=== PATIENT | female | born 1960 | race Caucasian/White ===

== ENCOUNTER 2017-10-29 19:24 | Inpatient (IN) | payer OTHER ==
[~2017-10-29] VITALS: Ht 170.2 cm; Wt 148.3 kg
[~2017-10-29 19:24] MED LIST: ACT/45 PO; ALBU1AER9 INH; ALPR0.5T PO; CARI350T PO; DULO60CA44 PO; GABA400C PO; LISI20TA10 PO; OMEP20CA59 PO; OXYC7.5T78 PO; SPRIN/30 INH
[2017-10-29] MEDS ORDERED: ALBUT/IPRATROP 3MG/0.5MG NEB 3 ML VIAL INH STA ×2 (19:40→21:38)
[2017-10-29] MEDS ORDERED: METHYLPREDNISOLONE 125 MG VIAL IV STA (19:40)
--- NOTE | 2017-10-29 20:07 | EMERGENCY ROOM VISIT NOTE ---
History Report prepared by Blanche: Damien Triplett Under the Supervision of: Dr. Vel Clayton M.D. First contact with patient: 19:36 Chief Complaint: SHORTNESS OF BREATH Stated Complaint: SOB,RETAINING FLUID History of Present Illness The patient is a 57 year old female who presents to the Emergency Room with complaints of worsening SOB that began recently. Patient adds she has been weaker than usual lately. She states that has not used oxygen in the past couple of weeks since it was not helping her symptoms. She was prescribed home oxygen by her primary care physician in [place] as needed, she does not wear oxygen regularly. Patient adds she has increased "fluid" in her abdomen which has "doubled in size" over the past 2 weeks. She states she also has generalized pain. Patient adds she takes Metformin, Genvoya, glimepiride, Aspirin, Percocet, Torsemide, and Lisinopril. Patient adds she uses Advair, an inhaler daily, and daily breathing treatments. She states the breathing treatments have not helped her breathing problems. Patient states she has been taking all her medications. Patient states she is a smoker. Patient denies ever being on a ventilator, intubated, or in the ICU. Patient denies any history of liver problems. She denies taking any blood thinners. 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 She adds she lives in [place]. Patient states she got to [employer] 2 weeks ago as a passenger in a car. Source of History: patient Onset: Recent Position: chest Timing: worsening Modifying Factors (Relieving): other (None) Associated Symptoms: + weakness Note: Positive abdominal "fluid" and generalized pain. Review of Systems See HPI for pertinent positives and negatives. A total of ten systems were reviewed and were otherwise negative. Past Medical & Surgical Medical Problems: (1) Acute CHF (2) Acute respiratory failure (3) Asthma (4) Bronchitis (5) Diabetes (6) Emphysema of lung (7) Hypertension (8) Pneumonia (9) Stomach problems Family History Cancer Diabetes mellitus Heart disease Hypertension Social History Smoking Status: Current Every Day Smoker Alcohol Use: none Marital Status: Occupation Status: disabled Current/Historical Medications Scheduled Fluticasone-Salmeterol 230/21 Mcg (Advair Hfa 230/21 Mcg), 2 PUFFS INH BID Glimepiride (Amaryl), 4 MG PO BID Home O2 Therapy (Oxygen), 2-3 LITERS NA UD Lisinopril (Zestril), 40 MG PO DAILY Metformin Hcl (Glucophage), 850 MG PO TID Sitagliptin Phosphate (Januvia), 100 MG PO DAILY Umeclidinium [place] (Incruse Ellipta), 1 INHA INH DAILY Scheduled PRN Furosemide (Lasix), 40 MG PO BID PRN for Fluid Retention Gabapentin (Neurontin), 800 MG PO BID PRN for Pain Ibuprofen Tab (Motrin), 1,600 MG PO BID PRN for Pain Oxycodone/Acetaminophen 7.5MG/325MG (Oxycodone/Acetaminophen 7.5MG/325MG), 1 TAB PO Q8 PRN for Pain Allergies Coded Allergies: No Known Allergies (Unverified , 11/15/11) Physical Exam Vital Signs Date Time Temp Pulse Resp B/P (MAP) Pulse Ox O2 Delivery O2 Flow Rate FiO2 10/29/17 23:31 84 22 129/72 93 Nasal Cannula 6.0 10/29/17 23:01 84 103/65 92 Nasal Cannula 6.0 10/29/17 22:00 81 117/73 92 Nasal Cannula 6.0 10/29/17 21:21 75 23 114/80 93 Nasal Cannula 6.0 10/29/17 20:13 78 10/29/17 19:55 92 Nasal Cannula 6.0 10/29/17 19:55 82 30 110/70 93 Nasal Cannula 6.0 10/29/17 19:52 93 Nasal Cannula 6.0 10/29/17 19:52 93 Nasal Cannula 6.0 10/29/17 19:32 36.8 81 26 83 Room Air Physical Exam Physical Exam GENERAL: She is oriented to person, place, and time. HENT: Exam performed. Head: Normocephalic and atraumatic. Right Ear: External ear normal. No mastoid tenderness. Left Ear: External ear normal. No mastoid tenderness. Mouth/Throat: The oropharynx is clear and moist. No trismus in the jaw. No dental abscesses or uvula swelling. No oropharyngeal exudate or tonsillar abscesses. EYES: Conjunctivae and EOM are normal. Pupils are equal, round, and reactive to light. Right eye exhibits no discharge. Left eye exhibits no discharge. No scleral icterus. NECK: Normal range of motion. Neck supple. No JVD present. No spinous process tenderness present. No carotid bruit present. No rigidity. No tracheal deviation and normal range of motion present. No Brudzinski's sign and no Kernig 's sign noted. CV: Normal rate, regular rhythm, normal heart sounds and intact distal pulses. There is no peripheral edema. Palpable radial pulses bue. PULM/CHEST: Diffuse expiratory wheezes otherwise effort normal and breath sounds normal. No stridor. She has no rales. Chest Wall: She exhibits no tenderness. ABD: Morbidly obese otherwise the abdomen is soft. Bowel sounds are normal. She has no distension. No mass is present. There is no tenderness. There is no rebound, no guarding, no George's sign and no tenderness at McBurney's point. Rovsig negative MUSC/SKEL: 2+ bilateral pitting edema otherwise normal range of motion. There is no tenderness or deformity. LYMPH: No cervical adenopathy. NEURO: She is alert and oriented to person, place, and time. She has normal strength. No cranial nerve deficit or sensory deficit. Coordination and gait normal. GCS eye subscore is 4. GCS verbal subscore is 5. GCS motor subscore is 6. Cerebellar tests wnl. SKIN: Skin is warm and dry. She is not diaphoretic. PSYCH: She has a normal mood and affect. Behavior is normal. Judgment and thought content normal. Medical Decision & Procedures ER Provider Diagnostic Interpretation: Radiology results as stated below per my review and radiologist interpretation: CHEST ONE VIEW PORTABLE CLINICAL HISTORY: CHEST PAIN dyspnea COMPARISON STUDY: No previous studies for comparison. FINDINGS: Moderate cardiomegaly. Prominent pulmonary vasculature. Diaphragms are smooth. IMPRESSION: Congestive heart failure The above report was generated using voice recognition software. It may contain grammatical, syntax or spelling errors. Electronically signed by: Ruiz Vance M.D. 10/29/2017 8:24 PM Laboratory Results 10/29/17 21:02 Red Blood Count 5.07, Mean Corpuscular Volume 96.3, Mean Corpuscular Hemoglobin 30.4, Mean Corpuscular Hemoglobin Concent 31.6, Mean Platelet Volume 9.9, Neutrophils (%) (Auto) 64.3, Lymphocytes (%) (Auto) 25.3, Monocytes (%) (Auto) 8.4, Eosinophils (%) (Auto) 1.3, Basophils (%) (Auto) 0.4, Neutrophils # (Auto) 7.30, Lymphocytes # (Auto) 2.87, Monocytes # (Auto) 0.95, Eosinophils # (Auto) 0.15, Basophils # (Auto) 0.04 10/29/17 21:02 Test 10/29/17 21:02 10/29/17 21:48 White Blood Count 11.34 K/uL (4.8-10.8) Red Blood Count 5.07 M/uL (4.2-5.4) Hemoglobin 15.4 g/dL (12.0-16.0) Hematocrit 48.8 % (37-47) Mean Corpuscular Volume 96.3 fL (80-100) Mean Corpuscular Hemoglobin 30.4 pg (25-34) Mean Corpuscular Hemoglobin Concent 31.6 g/dl (32-36) Platelet Count 274 K/uL (130-400) Mean Platelet Volume 9.9 fL (7.4-10.4) Neutrophils (%) (Auto) 64.3 % Lymphocytes (%) (Auto) 25.3 % Monocytes (%) (Auto) 8.4 % Eosinophils (%) (Auto) 1.3 % Basophils (%) (Auto) 0.4 % Neutrophils # (Auto) 7.30 K/uL (1.4-6.5) Lymphocytes # (Auto) 2.87 K/uL (1.2-3.4) Monocytes # (Auto) 0.95 K/uL (0.11-0.59) Eosinophils # (Auto) 0.15 K/uL (0-0.5) Basophils # (Auto) 0.04 K/uL (0-0.2) RDW Standard Deviation 58.3 fL (36.4-46.3) RDW Coefficient of Variation 16.7 % (11.5-14.5) Immature Granulocyte % (Auto) 0.3 % Immature Granulocyte # (Auto) 0.03 K/uL (0.00-0.02) Anion Gap 6.0 mmol/L (3-11) Est Creatinine Clear Calc Drug Dose 56.4 ml/min Estimated GFR () 34.9 Estimated GFR (Non- 30.1 BUN/Creatinine Ratio 44.3 (10-20) Calcium Level 8.9 mg/dl (8.5-10.1) Troponin I < 0.015 ng/ml (0-0.045) Pro-B-Type Natriuretic Peptide 7696 pg/ml (0-900) Venous Blood pH 7.20 (7.36-7.41) Venous Blood Partial Pressure CO2 69 mmHg (38.0-50.0) Venous Blood Partial Pressure O2 42 mmHg Venous Blood HCO3 27 mmol/L Venous Blood Oxygen Saturation 71.1 % Venous Blood Base Excess -2.8 mEq/L Laboratory results reviewed by me Medications Administered Medications (Trade) Dose Ordered Sig/Sheryl Route Start Time Stop Time Status Last Admin Dose Admin Albuterol/ Ipratropium (Duoneb) 3 ml NOW STAT INH 10/29/17 19:40 10/29/17 19:43 DC 10/29/17 20:17 3 ML Methylprednisolone Sodium Succinate (Solu-Medrol IV) 125 mg NOW STAT IV 10/29/17 19:40 10/29/17 19:43 DC 10/29/17 21:14 125 MG Albuterol/ Ipratropium (Duoneb) 3 ml NOW STAT INH 10/29/17 21:38 10/29/17 21:40 DC 10/29/17 22:51 3 ML Calcium Gluconate 1000 mg/Sodium Chloride 60 ml @ 240 mls/hr NOW STAT IV 10/29/17 21:55 10/29/17 22:09 DC 10/29/17 22:50 240 MLS/HR Dextrose (Dextrose 50% 50ML Syringe) 50 ml NOW STAT IV 10/29/17 21:55 10/29/17 21:57 DC 10/29/17 22:42 50 ML Sodium Polystyrene Sulfonate (Kayexalate Susp) 15 gm NOW STAT PO 10/29/17 21:55 10/29/17 21:58 DC 10/29/17 22:38 15 GM Furosemide (Lasix Inj) 40 mg STK-MED ONCE .ROUTE 10/29/17 22:18 10/29/17 22:19 DC 10/29/17 22:41 40 MG Insulin Human Regular (novoLIN-R U-100 PER UNIT) 5 units STK-MED ONCE .ROUTE 10/29/17 22:20 10/29/17 22:21 DC 10/29/17 22:44 5 UNITS ECG Per My Interpretation Indication: SOB/dyspnea Rate (beats per minute): 77 Rhythm: sinus rhythm Findings: T-wave inversion (T-wave inversion in leads 3-6 and AVF), other (OK QRS and QTc are within normal limits) ED Course 1931: The patient was evaluated in room A10. A complete history and physical exam was performed. Patient was immediately placed on oxygen as well as rn heart. 1939: Solu-Medrol IV 125mg IV and Duoneb 3ml INH 2030: Patient's oxygen saturation levels are stable on 6L. Patient states she had mild improvement with breathing treatment. 2137: Duoneb 3ml INH 2138: I reassessed the patient. Upon re-examination, lungs still show diminished breath sounds, Patient states she could she could use another breathing treatment which will be administered. CXR shows CHF and fluid overload. VBG shows respiratory acidosis. CO2 level at 71. pH at 7.2. A repeat VBG will be performed to show no worsening respiratory acidosis. 2154: Kayexalate Susp 15gm PO, Furosemide 40mg/Syringe 4ml @ 4mls/min IV, Dextrose 50ml IV, Insulin Human Regular 10 units/Syringe 10ml @ 20mls/min IV, and Calcium Gluconate 1000mg/Sodium Chloride 60 ml @ 240 mls/hr IV 2213: I reevaluated the patient. Labs show acute kidney injury, BUN 82, and creatinine is 1.81. Patient denies a history of kidney problem. Pro BNP is markedly elevated. CXR shows fluid overload. Potassium is 5.9. VBG is stable. Patient will be treated calcium gluconate, 5 U insulin, 1 amp D50W, Kayexalate. Patient will be admitted to Dr[facility] De [facility]. I discussed the test results and treatment plan with the patient. She is agreeable to the treatment plan. The patient will be evaluated for further management. Medical Decision 1931: The patient was evaluated in room A10. A complete history and physical exam was performed. Patient was immediately placed on oxygen as well as rn heart. 1939: Solu-Medrol IV 125mg IV and Duoneb 3ml INH 2030: Patient's oxygen saturation levels are stable on 6L. Patient states she had mild improvement with breathing treatment. 2137: Duoneb 3ml INH 2138: I reassessed the patient. Upon re-examination, lungs still show diminished breath sounds, Patient states she could she could use another breathing treatment which will be administered. CXR shows CHF and fluid overload. VBG shows respiratory acidosis. CO2 level at 71. pH at 7.2. A repeat VBG will be performed to show no worsening respiratory acidosis. 2154: Kayexalate Susp 15gm PO, Furosemide 40mg/Syringe 4ml @ 4mls/min IV, Dextrose 50ml IV, Insulin Human Regular 10 units/Syringe 10ml @ 20mls/min IV, and Calcium Gluconate 1000mg/Sodium Chloride 60 ml @ 240 mls/hr IV 2213: I reevaluated the patient. Labs show acute kidney injury, BUN 82, and creatinine is 1.81. Patient denies a history of kidney problem. Pro BNP is markedly elevated. CXR shows fluid overload. Potassium is 5.9. VBG is stable. Patient will be treated calcium gluconate, 5 U insulin, 1 amp D50W, Kayexalate. Patient will be admitted to Dr. De Los Santos of the [facility]. I discussed the test results and treatment plan with the patient. She is agreeable to the treatment plan. The patient will be evaluated for further management. Medication Reconcilliation Current Medication List: was personally reviewed by me Blood Pressure Screening Patient's blood pressure: Normal blood pressure Blood pressure disposition: Did not require urgent referral Consults Time Called: 2202 Consulting Physician: Dr. De Los Santos - [facility] Returned Call: 2204 Discussed the patient's case. The patient will be evaluated for further treatment and disposition. Impression Primary Impression: Hypoxia Additional Impressions: Respiratory acidosis CHF exacerbation COPD exacerbation Acute kidney injury Hypokalemia Critical Care I have personally spent greater than 84 minutes of critical care time in the direct management of this patient. This includes bedside care, interpretation of diagnostic studies, and testing, discussion with consultants, patient, and family members, and other required patient management activities. This 84 minutes is in excess of all separately billable procedures. Scribe Attestation The scribe's documentation has been prepared under my direction and personally reviewed by me in its entirety. I confirm that the note above accurately reflects all work, treatment, procedures, and medical decision making performed by me. The chart was completed utilizing [employer] Speech voice recognition software. Grammatical errors, random word insertions, pronoun errors, and incomplete sentences are an occasional consequence of this system due to software limitations, ambient noise, and hardware issues. Any formal questions or concerns about the content, text, or information contained within the body of this dictation should be directly addressed to the physician for clarification. Departure Information Dispostion Being Evaluated By Hospitalist Referrals No Doctor, Assigned (PCP) Forms HOME CARE DOCUMENTATION FORM, IMPORTANT VISIT INFORMATION Patient Instructions [facility] Problem Qualifiers Additional Impressions: CHF exacerbation Heart failure type: unspecified Qualified Codes: I50.9 - Heart failure, unspecified
--- NOTE | 2017-10-29 20:26 | DIAGNOSTIC IMAGING REPORT ---
CHEST ONE VIEW PORTABLE CLINICAL HISTORY: CHEST PAIN dyspnea COMPARISON STUDY: No previous studies for comparison. FINDINGS: Moderate cardiomegaly. Prominent pulmonary vasculature. Diaphragms are smooth. IMPRESSION: Congestive heart failure The above report was generated using voice recognition software. It may contain grammatical, syntax or spelling errors. Electronically signed by: Ruiz Vance M.D. 10/29/2017 8:24 PM Dictated Date/Time: 10/29/2017 8:24 PM
[2017-10-29] MEDS ORDERED: SITA100T3 PO (20:42)
[2017-10-29] MEDS ORDERED: FLUT230A INH (20:42)
[2017-10-29] MEDS ORDERED: LISI40TA PO (20:42)
[2017-10-29] MEDS ORDERED: OXYC-593 PO (20:42)
[2017-10-29] MEDS ORDERED: UMEC1INH INH (20:42)
[2017-10-29] MEDS ORDERED: IBUP-1451 PO (20:46)
[2017-10-29] MEDS ORDERED: OXGN (20:46)
[2017-10-29] MEDS ORDERED: GABA800T2 PO (20:46)
[2017-10-29 21:21] LABS: BASO % 0.4 %; BASO ABS # 0.04 K/uL (0-0.2); EOS % 1.3 %; EOS ABS # 0.15 K/uL (0-0.5); HEMATOCRIT 48.8 % (37-47); HEMOGLOBIN 15.4 g/dL (12.0-16.0); IG# 0.03 K/uL (0.00-0.02); LYMPH % 25.3 %; LYMPH ABS # 2.87 K/uL (1.2-3.4); MEAN CELL VOLUME 96.3 fL (80-100); MEAN CORPUSCULAR HEMOGLOBIN 30.4 pg (25-34); MEAN CORPUSCULAR HGB CONC 31.6 g/dl (32-36); MEAN PLATELET VOLUME 9.9 fL (7.4-10.4); MONO % 8.4 %; MONO ABS # 0.95 K/uL (0.11-0.59); NEUT % 64.3 %; PLATELET COUNT 274 K/uL (130-400); RED CELL DISTRIBUTION WIDTH CV 16.7 % (11.5-14.5); RED CELL DISTRIBUTION WIDTH SD 58.3 fL (36.4-46.3); WHITE BLOOD COUNT 11.34 K/uL (4.8-10.8)
[2017-10-29 21:43] LABS: BLOOD UREA NITROGEN 82 mg/dl (7-18); CALCIUM 8.9 mg/dl (8.5-10.1); CARBON DIOXIDE 26 mmol/L (21-32); CREATININE 1.84 mg/dl (0.60-1.20); GLUCOSE 99 mg/dl (70-99); POTASSIUM 5.9 mmol/L (3.5-5.1); SODIUM 137 mmol/L (136-145)
[2017-10-29] MEDS ORDERED: DEXTROSE 50% 50 ML SYR IV STA (21:55)
[2017-10-29] MEDS ORDERED: FUROSEMIDE INJ 40 MG in SYRINGE 0 ML IV STA (21:55)
[2017-10-29] MEDS ORDERED: INSULIN HUMAN REGULAR PER UNIT 10 UNITS in SYRINGE 9.9 ML IV STA (21:55)
[2017-10-29] MEDS ORDERED: CALCIUM GLUCONATE 10% 1,000 MG in SODIUM CHLORIDE 0.9% 50ML 50 ML IV STA (21:55)
[2017-10-29] MEDS ORDERED: SODIUM POLYST. SULF SUSP 15G/60ML PO STA ×2 (21:55→23:05)
[2017-10-29] MEDS ORDERED: GLIM4TAB PO (22:02)
[2017-10-29] MEDS ORDERED: METF850T PO (22:02)
[2017-10-29] MEDS ORDERED: FURO20TA PO (22:02)
[2017-10-29] MEDS ORDERED: FUROSEMIDE 40 MG/4 ML VIAL ONE (22:18)
[2017-10-29] MEDS ORDERED: NovoLIN-R INSULIN PER UNIT CHARGE ONE (22:20)
[2017-10-29] MEDS ORDERED: ACETAMINOPHEN 325 MG TAB PO PRN (23:15)
[2017-10-29] MEDS ORDERED: GABAPENTIN 800 MG TAB PO PRN (23:15)
[2017-10-29] MEDS ORDERED: POLYETHYLENE (MIRALAX) 17 GM PACK PO PRN (23:15)
[2017-10-29] MEDS ORDERED: NITROGLYCERIN 0.4 MG SL PER TAB CHARGE SL PRN (23:15)
[2017-10-29] MEDS ORDERED: ONDANSETRON INJ 2 MG/ML 2 ML VIAL IV PRN (23:15)
[2017-10-29] MEDS ORDERED: ALUMINUM/MAGNESIUM/SIMETH (MAALOX MAX) 30 ML UDC PO PRN (23:15)
[2017-10-29] MEDS ORDERED: DEXTROSE 50% 50 ML SYR IV PRN (23:45)
[2017-10-29] MEDS ORDERED: GLUCAGON FOR INJ 1 MG VIAL IM PRN (23:45)
[2017-10-29] MEDS ORDERED: GLUCOSE 10 TABS/TUBE PO PRN (23:45)
[2017-10-29] MEDS ORDERED: CARBOHYDRATES FOR HYPOGLYCEMIA PO PRN (23:45)
[2017-10-29] MEDS ORDERED: GLUCOSE 40% GEL 15 GM TUBE PO PRN (23:45)
[2017-10-30] VITALS (24 sets, daily range): BP systolic 83–140; BP diastolic 43–79; PULSE 70–87; TEMP 36.3–37; O2SAT 40–99; BMI 57.0
--- NOTE | 2017-10-30 00:44 | HISTORY & PHYSICAL EXAMINATION ---
DATE OF ADMISSION: 10/29/2017 CHIEF COMPLAINT: Shortness of breath. HISTORY OF PRESENT ILLNESS: This is a 57-year-old female with past medical history significant for morbid obesity, obstructive sleep apnea, but noncompliant with CPAP, diabetes, hypertension, COPD, tobacco abuse. Presents with shortness of breath. Patient is from [place]. Her house is getting repaired and that is why she came to live with her niece in [place] since about a month. Before coming to [place], she was in ER in [place] and she was told she has CHF and discharged on Lasix tablet prn and she was not seen by any orthopedics nurse. She states since that time she is progressively getting weight gain and increasing lower extremity edema, but last 1 week it got progressive worse and she was getting short of breath even on ambulating few steps, she was getting nauseous, somewhat dizzy, feeling weak and tired. She has some cough with occasional white phlegm . All these symptoms prompted her to come to the ER. In the ER, she was saturating 83% on room air and with oxygen 6 L she was saturating at 93% to 94%. She is worried about her weight gain. She is feeling very weak and tired. She says her abdominal girth is much increased. She says she gained about 70 pounds from last August. Denies any headaches, no blurred visions, no earache, no runny nose, no sore throat. She also complained of some difficulty swallowing. 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 No abdominal pain. Normal bowel movements. No blood in the stools. She says some days she micturates a lot and some days not at all, but no blood in the urine. ALLERGIES: No known drug allergies. PAST MEDICAL HISTORY: As mentioned above. PAST SURGICAL HISTORY: Denies any surgeries. MEDICATIONS: Patient currently on Lasix 40 mg p.o. b.i.d., p.r.n., glimepiride 4 mg p.o. b.i.d., ibuprofen 600 mg p.o. b.i.d. p.r.n., lisinopril 40 mg p.o. daily, metformin 850 mg p.o. t.i.d., Januvia 100 mg p.o. daily, oxygen 2-3 liters, Advair 230/21 mcg inhalation 2 puffs inhalation b.i.d., gabapentin 800 mg p.o. b.i.d., p.r.n., [place] 7.5/325 p.o. q. 8 hours p.r.n. Ellipta 62.5 mcg inhalation daily. FAMILY HISTORY: Father and mother have diabetes. Mother has breast cancer. SOCIAL HISTORY: Smokes half pack a day . Quit for r 5 years, but restarted 2 years ago. Denies any alcohol use. REVIEW OF SYSTEMS: As per HPI. Rest of review of systems negative. PHYSICAL EXAMINATION: GENERAL: The patient is morbidly obese and mild respiratory distress. HEENT: No pallor, no icterus. Pupils equal, round, and reactive to light. NECK: No JVD, no neck masses, no carotid bruits. CARDIOVASCULAR: S1, S2 heard, regular rate and rhythm, no murmur, no gallop. RESPIRATORY SYSTEM: Clear to auscultation bilaterally, was tachypneic initially but is doing okay now. Mild bibasilar crackles. No wheezing. ABDOMEN: Soft, bowel sounds present, somewhat edematous, erythema seen in the pannus. CENTRAL NERVOUS SYSTEM: Cranial nerves II through XII grossly intact, nonfocal. EXTREMITIES: Bilateral lower extremity gross edema present. Some erythematous changes in the lower extremities. LABORATORY DATA: WBC 11.34, hemoglobin 15, hematocrit 48.8, platelets 274. Sodium 137, potassium 5.9, chloride 104, bicarbonate 26, BUN 82, creatinine 1.8, serum glucose 99. Troponin I less than 0.015. BNP 7696. Chest x-ray, congestive heart failure. EKG: Normal Sinus rhythm with rate of 77. Inverted T waves in inferior leads and anterolateral leads. No old EKG to compare. ASSESSMENT AND PLAN: This is a 57-year-old female who presents with shortness of breath. 1. Acute congestive heart failure with no prior history of diagnosis of congestive heart failure. The patient received a dose of Lasix in the ER. We will continue IV Lasix b.i.d. Follow echocardiogram, daily weights, I's and O's. Close monitoring, tele floor. Cardiology consult in a.m. for further recommendations. We will continue CPAP tonight. 2. Obstructive sleep apnea, noncompliant with CPAP. The patient says she uses oxygen 2.5 L whenever she gets short of breath at nighttime, but she is not using CPAP We will follow abg in the a.m. 3. Chronic obstructive pulmonary disease, tobacco abuse for many years. Smokes half pack a day. Continue Advair Diskus and Ellipta. We will place on DuoNebs around the clock and p.r.n. Will place on short course of prednisone and also Levaquin. 4. Possible cellulitis in lower extremities, Levaquin as above. We will monitor. 5. Hyperkalemia. Hold the lisinopril. Patient received insulin, dextrose, calcium chloride and15 grams of Kayexalate. We will give another dose of Kayexalate. Follow the labs in a.m.Nephrology consult. 6. For acute renal failure. The patient was never told that she has any renal disease. Creatinine 1.8 and BUN of 82. The patient received a dose of Lasix. possibly cardiorenal. We will follow the labs in a.m. and will consult nephrology for further recommendations. 7. History of diabetes. Hold metformin, Januvia, and glimepiride. Placed on Lantus and insulin sliding scale. Monitor the blood sugars and follow HbA1c levels. Will also hold ibuprofen which patient takes on as needed basis. 8. Chronic pain. Continue Percocet p.r.n., but we will hold the ibuprofen. 9. Dysphagia.Will Consult GI when more stable 10. Deep venous thrombosis prophylaxis. Heparin subQ. DISPOSITION: Admit to tele floor. Expect discharge home and follow up with the family doctor and cardiology. Level 1 full code. MTDD
[2017-10-30] MEDS ORDERED: LEVOFLOXACIN CONSULT ACTIVE PRN (01:15)
[2017-10-30] MEDS: LEVOFLOXACIN / D5W 750 MG in PREMIXED IN D5W 150 ML IV SCH (02:06)
[2017-10-30] MEDS: HEPARIN SOD 5000 UNIT/0.5 ML CARP SQ SCH ×2 (06:15→15:00)
[2017-10-30 06:48] LABS: BASO % 0.1 %; BASO ABS # 0.01 K/uL (0-0.2); HEMOGLOBIN 14.3 g/dL (12.0-16.0); IG# 0.06 K/uL (0.00-0.02); LYMPH ABS # 0.36 K/uL (1.2-3.4); MEAN CELL VOLUME 98.3 fL (80-100); MEAN CORPUSCULAR HEMOGLOBIN 29.9 pg (25-34); MEAN CORPUSCULAR HGB CONC 30.4 g/dl (32-36); MEAN PLATELET VOLUME 10.3 fL (7.4-10.4); MONO % 0.3 %; MONO ABS # 0.03 K/uL (0.11-0.59); NEUT % 94.9 %; NEUT ABS # 8.46 K/uL (1.4-6.5); PLATELET COUNT 258 K/uL (130-400); RED CELL DISTRIBUTION WIDTH CV 16.6 % (11.5-14.5); RED CELL DISTRIBUTION WIDTH SD 59.2 fL (36.4-46.3); WHITE BLOOD COUNT 8.92 K/uL (4.8-10.8)
[2017-10-30 06:53] LABS: INR 1.1 (0.9-1.1)
[2017-10-30] MEDS: ALBUT/IPRATROP 3MG/0.5MG NEB 3 ML VIAL INH SCH ×4 (07:07→19:40)
[2017-10-30 07:29] LABS: CALCIUM 8.4 mg/dl (8.5-10.1); CREATININE 1.69 mg/dl (0.60-1.20)
[2017-10-30] MEDS: HydrALAZINE 10 MG TAB PO PRN (08:08)
[2017-10-30] MEDS ORDERED: PATIROMER SORBITEX CALCIUM PO STA (08:09)
[2017-10-30] MEDS: NYSTATIN OINT 15 GM TUBE EXT SCH ×2 (08:09→21:04)
[2017-10-30] MEDS: INSULIN ASPART 100 UNITS/ML 3 ML PEN SC SCH ×4 (08:11→21:11)
[2017-10-30] MEDS: INSULIN GLARGINE SOLOSTAR 100 UNITS/ML 3 ML PEN SC SCH ×2 (08:12→21:12)
[2017-10-30] MEDS ORDERED: DEXTROSE 50% 50 ML SYR IV STA (08:19)
[2017-10-30] MEDS ORDERED: NovoLIN-R INSULIN PER UNIT CHARGE IV STA (08:19)
[2017-10-30 08:27] LABS: HEMOGLOBIN A1C 9.9 % (4.5-5.6)
[2017-10-30] MEDS ORDERED: FUROSEMIDE INJ 80 MG in SYRINGE 0 ML IV ONE (08:30)
[2017-10-30] MEDS ORDERED: CALCIUM GLUCONATE 10% 1,000 MG in SODIUM CHLORIDE 0.9% 50ML 50 ML IV ONE (08:45)
[2017-10-30] MEDS ORDERED: INSULIN HUMAN REGULAR PER UNIT 10 UNITS in SYRINGE 9.9 ML IV SCH (08:45)
[2017-10-30] MEDS ORDERED: FUROSEMIDE INJ 40 MG in SYRINGE 0 ML IV SCH (09:00)
[2017-10-30] MEDS ORDERED: FUROSEMIDE INJ 40 MG in SYRINGE 0 ML IV ONE (09:00)
--- NOTE | 2017-10-30 10:25 | Cardiology Consultation ---
Cardiology Consultation Date of Consultation: Oct 30, 2017 Requesting Physician: Dr. De Los Santos Attending Education Technician: Dr. Jasso (Gemma Mullins PA-C) History of Present Illness Patient is a 57 year old female who is a rather poor historian. It was difficult to obtain medical information this morning. Most history is obtained from admission H&P. Patient resides in [place]. She is currently living with her niece in [place]. Over the last 1-2 months patient reports worsening fluid retention. She admits to being evaluated in [place] ER before traveling to the area, and was told she had "congestive heart failure", started on diuretics due to significant fluid retention. She reports significant weight gain over the last 2 months. She denies recent cardiac testing such as an echocardiogram, stress test, cardiac catheterization. She denies a cardiac history of OR, CAD. She admits to having cardiac "arrhythmia" but is unable to tell me specific names of SVT vs afib. History includes morbid obesity, HEMALATHA with CPAP noncompliance, diabetes mellitus type 2, COPD with underlying tobacco abuse, hypertension, and history of lower extremity DVT no longer on anticoagulation. She was brought to [place] ER yesterday with concerns regarding worsening SOB, fluid retention, weight gain, LE edema, and weakness. Started on IV diuretics. Found to have JANNY with hyperkalemia, although baseline creatinine unknown. Lisinopril on hold. Antibiotics for questionable cellulitis. Time of consult patient resting in the chair and had difficulty staying awake during conversation. Review of systems limited. Reports ongoing issues with fluid retention 2 months. Reports ongoing shortness of breath since admission. No chest pain. (Gemma Mullins PA-C) Past Medical/Surgical History Problem List: Medical Problems: (1) Acute CHF (2) Acute respiratory failure (3) Asthma (4) Bronchitis (5) Diabetes (6) Emphysema of lung (7) Hypertension (8) Pneumonia (9) Stomach problems 10. History of DVT (Gemma Mullins PA-C) Family History Cancer Diabetes mellitus Heart disease Hypertension No history of premature CAD or sudden cardiac . (Gemma Mullins PA-C) Cancer Diabetes mellitus Heart disease Hypertension (Delonte Jasso,D.O.) Social History Smoking Status: Current Every Day Smoker Marital Status: Occupation: disabled (Gemma Mullins PA-C) Review Of Systems See HPI. Limited ROS. (Gemma Mullins PA-C) Allergies Coded Allergies: No Known Allergies (Unverified , 11/15/11) Medications Reported Home Medications Medications Dose Route/Sig Max Daily Dose Days Date Category Oxygen Gas 2-3 Liters NA UD 10/29/17 Reported Motrin (Ibuprofen) 800 Mg Tab 1,600 Mg PO BID PRN 10/29/17 Reported Neurontin (Gabapentin) 800 Mg Tab 800 Mg PO BID PRN 10/29/17 Reported Incruse Ellipta (Umeclidinium [place]) 62.5 Mcg/Inh Inh 1 Inha INH DAILY 10/29/17 Reported Zestril (Lisinopril) 40 Mg Tab 40 Mg PO DAILY 10/29/17 Reported Januvia (Sitagliptin Phosphate) 100 Mg Tab 100 Mg PO DAILY 10/29/17 Reported Advair Hfa 230/21 Mcg (Fluticasone-Salmeterol 230/21 Mcg) 1 Aer Aer 2 Puffs INH BID 10/29/17 Reported Oxycodone/Acetaminophen 7.5MG/325MG 1 Tab Tab 1 Tab PO Q8 PRN 10/29/17 Reported Glucophage (Metformin Hcl) 850 Mg Tab 850 Mg PO TID 11/08/11 Reported Amaryl (Glimepiride) 4 Mg Tab 4 Mg PO BID 11/08/11 Reported Lasix (Furosemide) 20 Mg Tab 40 Mg PO BID PRN 11/08/11 Reported (Gemma Mullins PA-C) Physical Exam Vital Signs (Last 8hrs): Last 8 Hrs Date Time Temp Pulse Resp B/P (MAP) Pulse Ox O2 Delivery O2 Flow Rate FiO2 10/30/17 07:17 36.7 86 23 96/55 (69) 93 Nasal Cannula 6.0 10/30/17 07:07 87 18 93 Nasal Cannula 6.0 10/30/17 03:48 36.8 87 22 102/64 (77) 90 Nasal Cannula 7.0 General Appearance: Drowsy, lethargic. Obese. Head: Normocephalic Atraumatic. Eyes: PERRLA, EOMI, conjunctiva and sclera clear Neck: Supple. No carotid bruits noted. No JVD. No HJD. Respiratory: + bibasilar rales Cardiovascular: Reg rate and rhythm. Distant heart sounds no audible murmur Abdomen: Normal bowel sounds, soft nontender. no abdominal bruits. Extremities: Chronic stasis changes, 1-2+ hard indurated edema. Neuro: No focal deficits. (Gemma Mullins PA-C) Data Last 24 Hours Test 10/29/17 21:02 10/29/17 21:08 10/29/17 21:48 10/30/17 00:46 White Blood Count 11.34 K/uL Red Blood Count 5.07 M/uL Hemoglobin 15.4 g/dL Hematocrit 48.8 % Mean Corpuscular Volume 96.3 fL Mean Corpuscular Hemoglobin 30.4 pg Mean Corpuscular Hemoglobin Concent 31.6 g/dl Platelet Count 274 K/uL Mean Platelet Volume 9.9 fL Neutrophils (%) (Auto) 64.3 % Lymphocytes (%) (Auto) 25.3 % Monocytes (%) (Auto) 8.4 % Eosinophils (%) (Auto) 1.3 % Basophils (%) (Auto) 0.4 % Neutrophils # (Auto) 7.30 K/uL Lymphocytes # (Auto) 2.87 K/uL Monocytes # (Auto) 0.95 K/uL Eosinophils # (Auto) 0.15 K/uL Basophils # (Auto) 0.04 K/uL RDW Standard Deviation 58.3 fL RDW Coefficient of Variation 16.7 % Immature Granulocyte % (Auto) 0.3 % Immature Granulocyte # (Auto) 0.03 K/uL Sodium Level 137 mmol/L Potassium Level 5.9 mmol/L Chloride Level 104 mmol/L Carbon Dioxide Level 26 mmol/L Anion Gap 6.0 mmol/L Blood Urea Nitrogen 82 mg/dl Creatinine 1.84 mg/dl Est Creatinine Clear Calc Drug Dose 56.4 ml/min Estimated GFR () 34.9 Estimated GFR (Non- 30.1 BUN/Creatinine Ratio 44.3 Random Glucose 99 mg/dl Calcium Level 8.9 mg/dl Troponin I < 0.015 ng/ml Pro-B-Type Natriuretic Peptide 7696 pg/ml Venous Blood pH 7.21 7.20 Venous Blood Partial Pressure CO2 71 mmHg 69 mmHg Venous Blood Partial Pressure O2 39 mmHg 42 mmHg Venous Blood HCO3 27 mmol/L 27 mmol/L Venous Blood Oxygen Saturation 66.6 % 71.1 % Venous Blood Base Excess -2.4 mEq/L -2.8 mEq/L Bedside Glucose 153 mg/dl Test 10/30/17 06:15 10/30/17 07:34 10/30/17 09:13 White Blood Count 8.92 K/uL Red Blood Count 4.78 M/uL Hemoglobin 14.3 g/dL Hematocrit 47.0 % Mean Corpuscular Volume 98.3 fL Mean Corpuscular Hemoglobin 29.9 pg Mean Corpuscular Hemoglobin Concent 30.4 g/dl Platelet Count 258 K/uL Mean Platelet Volume 10.3 fL Neutrophils (%) (Auto) 94.9 % Lymphocytes (%) (Auto) 4.0 % Monocytes (%) (Auto) 0.3 % Eosinophils (%) (Auto) 0.0 % Basophils (%) (Auto) 0.1 % Neutrophils # (Auto) 8.46 K/uL Lymphocytes # (Auto) 0.36 K/uL Monocytes # (Auto) 0.03 K/uL Eosinophils # (Auto) 0.00 K/uL Basophils # (Auto) 0.01 K/uL RDW Standard Deviation 59.2 fL RDW Coefficient of Variation 16.6 % Immature Granulocyte % (Auto) 0.7 % Immature Granulocyte # (Auto) 0.06 K/uL Prothrombin Time 11.6 SECONDS Prothromb Time International Ratio 1.1 Sodium Level 135 mmol/L Potassium Level 6.0 mmol/L Chloride Level 104 mmol/L Carbon Dioxide Level 24 mmol/L Anion Gap 7.0 mmol/L Blood Urea Nitrogen 81 mg/dl Creatinine 1.69 mg/dl Est Creatinine Clear Calc Drug Dose 60.4 ml/min Estimated GFR () 38.7 Estimated GFR (Non- 33.4 BUN/Creatinine Ratio 47.8 Random Glucose 251 mg/dl Estimated Average Glucose 237 mg/dl Hemoglobin A1c 9.9 % Calcium Level 8.4 mg/dl Magnesium Level 2.1 mg/dl Troponin I 0.018 ng/ml Triglycerides Level 67 mg/dl Cholesterol Level 133 mg/dl HDL Cholesterol 36 mg/dl LDL Cholesterol, Calculated 84 mg/dl VLDL Cholesterol, Calculated 13 mg/dl Cholesterol/HDL Ratio 3.7 Thyroid Stimulating Hormone (TSH) 1.110 uIu/ml Random Cortisol 13.67 mcg/dl Hepatitis C Antibody Screen NEG Bedside Glucose 244 mg/dl Arterial Blood pH 7.18 Arterial Blood Partial Pressure CO2 72 mmHg Arterial Blood Partial Pressure O2 54 mm/Hg Arterial Blood HCO3 26 mmol/L Arterial Blood Oxygen Saturation 84.0 % Arterial Blood Base Excess -4.1 mEq/L Arterial Blood Gas Delivery 4L Henri Test POS Imaging: Chest x-ray on admission demonstrating pulmonary vascular congestion consistent with CHF. EK29-OCT-2017 19:52:06 [facility] [place] Normal sinus rhythm Rightward axis Low voltage QRS Septal infarct , age undetermined T wave abnormality, consider inferior ischemia T wave abnormality, consider anterolateral ischemia Abnormal ECG No previous ECGs Repeat EKG 10/30/2017 Normal sinus rhythm Right axis deviation Incomplete right bundle branch block Possible Right ventricular hypertrophy T wave abnormality, consider inferior ischemia Abnormal ECG When compared with ECG of 29-OCT-2017 19:52, (unconfirmed) Criteria for Septal infarct are no longer Present T wave inversion no longer evident in Anterolateral leads QT has lengthened Telemetry reviewed: Normal sinus rhythm with PVCs. No concerning arrhythmias. (Gemma Mullins PA-C) Assessment & Plan 1. Acute respiratory failure with hypoxia secondary to probable acute diastolic vs acute right heart failure, pickwickian 2. HEMALATHA with history of non compliance with CPAP 3. COPD wiht ongoing tobacco abuse 4. Patient reports history of DVT, no longer on anticoagulation therapy. 5. Hypertension 6. JANNY wiht hyperkalemia. 7. Abnormal EKG, negative cardiac enzymes x2 PLAN: Continue IV furosemide today. Monitor I+O's No supplemental potassium. Lisinopril on hold. Monitor K CPAP/BIPAP therapy ABG's pending echo pending Venous duplex ordered given history of DVT. ? PE. Unable to complete CT scan given JANNY. VQ scan likely limited due to body habitus. DVT proph wiht SQ hep for now Case discussed with Dr. Jasso. Will follow (Gemma Mullins PA-C) CARDIOLOGY ATTENDING ADDENDUM: The patient was seen and personally examined. Agree with Gemma Mullins PA-C's findings and plans as documented above. Subjective: For the time the patient was assessed by the undersigned, respiratory status has declined to the point that she was somnolent and snoring. Her arterial blood gas revealed significant CO2 retention and hypoxia , with respiratory acidosis. And BiPAP was actively being applied. Data: Echocardiogram being performed at the bedside was reviewed preliminarily with noted right ventricular chamber enlargement and hypokinesis with relative small left ventricular chamber size in comparison. Left ventricular systolic function was grossly normal on preliminary evaluation, lateral views were completed at that time. Right chamber enlargement was present including right ventricular and right atrial enlargement consistent with perhaps some degree of chronicity of her right ventricular dysfunction consistent with suspected history of obesity hypoventilation syndrome Impression / plan: Fortunately her renal function has improved with diuresis so far. She continues to have hyperkalemia and she has received appropriate medication for this including dextrose, insulin, calcium gluconate,Veltassa. Plan for bipap, diuretic therapy, close follow up of electrolytes. Check LEVduplex to exclude DVT. Not candidate for CTA at present. (Delonte Jasso,D.O.)
[2017-10-30 11:30] LABS: CALCIUM 8.3 mg/dl (8.5-10.1); CREATININE 1.75 mg/dl (0.60-1.20); POTASSIUM 5.6 mmol/L (3.5-5.1)
[2017-10-30] MEDS ORDERED: FUROSEMIDE INJ 100 MG in SYRINGE 0 ML IV ONE (14:30)
[2017-10-30] MEDS ORDERED: METOLAZONE 5 MG TAB PO ONE (14:30)
--- NOTE | 2017-10-30 14:54 | NEPHROLOGY CONSULTATION ---
DATE OF CONSULTATION: 10/30/2017 REASON FOR CONSULT: 1. Renal failure with hyperkalemia. 2. Fluid overload, congestive heart failure. HISTORY OF PRESENT ILLNESS: The patient is a 57-year-old female with super morbid obesity, obstructive sleep apnea, and noncompliant with CPAP, longstanding diabetes, on insulin, hypertension, COPD as well as history of chronic kidney disease. At this time, the patient is too much in respiratory distress to give me a detailed history. History was mainly constructed from the chart. The patient lives in [place]. Her house is getting repaired and that is why she came to live with her niece in [place] for the last 1 month. Before coming to [place], she was in the Emergency [place] and she was told she has congestive heart failure and discharged on Lasix tablet as needed and she has not seen any fire hydrant mechanic or actuary manager. She has had progressive weight gain, increasing lower extremity edema as well as progressive shortness of breath with orthopnea. In the Emergency Department yesterday, she was saturating 83% on room air and even with 6 L of oxygen, she was only saturating at 93%. She has had 70-pound of weight gain in the last 2 months. At this time, she is on a BiPAP, but even then she appears to be short of breath. Chest x-ray shows congestive heart failure. I do not have her baseline kidney function. At the time of admission last night, potassium was 5.9, sodium was 137, creatinine was 1.84, and BUN was 84. Since then, potassium has even been as high as 6.0 and the most recent is 5.8. She has had 40 mg of IV Lasix 2 times, but her urine output has been very minimal with that. She has a Priest catheter. After the 40 mg of IV Lasix this morning, she has only urinated about 300 mL. PAST MEDICAL AND SURGICAL HISTORY: Morbid obesity, obstructive sleep apnea, noncompliant with CPAP, type 2 diabetes, hypertension, COPD, tobacco abuse, CKD stage III. PAST SURGICAL HISTORY: None. MEDICATIONS: At home was reviewed and is as per the reconciliation list. FAMILY HISTORY: Both father and mother had diabetes. Mother has breast cancer. SOCIAL HISTORY: Smoker, quit for the last 5 years, restarted 2 years ago. Denies alcohol. REVIEW OF SYSTEMS: Unable to obtain as the patient is on BiPAP and is in shortness of breath. PHYSICAL EXAMINATION: GENERAL: The patient is super morbidly obese. She is on a BiPAP with mild respiratory distress. NECK: Cannot assess jugular venous distention. VITAL SIGNS: Most recent blood pressure is 129/69, 96% on BIPAP with 4 L oxygen 40% FIO2, respiratory rate 26, pulse rate 78. CHEST: Decreased breath sounds. Unable to hear any breath sounds secondary to morbid obesity. CARDIOVASCULAR: S1 and S2, regular. ABDOMEN: Soft, nontender, very obese. EXTREMITIES: Bilateral lower extremity edema. LABORATORY TEST: Most recent labs shows sodium 136, potassium 5.8, chloride 104, BUN 83, creatinine 1.75, glucose 219, calcium 8.3, hemoglobin 14.3, WBC count 8.92, platelet count 258. Chest x-ray shows congestive heart failure. ASSESSMENT AND PLAN: A 57-year-old female who presents with symptomatic congestive heart failure. The patient has all the risk factor for severe fluid overload including possible right-sided heart failure, diastolic congestive heart failure, chronic kidney disease stage III. At this time, there is no question the patient need very aggressive diuresis. The current dose of 40 mg IV daily has not really produced significant diuresis. Chronic kidney disease versus acute renal failure. At this time, I cannot tell whether this is her baseline or not as we do not have a baseline kidney function. I would guess that she probably has some degree of chronic kidney disease given her extensive comorbid disease. Her potassium is also higher end, most likely related with decreased renal perfusion in the setting of decompensated heart failure. RECOMMENDATIONS: 1. She needs aggressive diuresis. I would write for 100 mg IV Lasix x1 now with metolazone 5 mg. Further dose of the Lasix can be titrated based on the response to this dose, but this is for all practical purpose, the maximum dose of Lasix. This should also get her potassium better. Continue BiPAP. 2. Check urine for [id number] ratio. Continue daily labs. At this time, hold metformin, Januvia, and glimepiride. Continue to manage with the insulin. Consider doing an echocardiogram. Thank you very much. [facility]
--- NOTE | 2017-10-30 16:57 | DIAGNOSTIC IMAGING REPORT ---
BILATERAL LOWER EXTREMITY VENOUS DOPPLER HISTORY: history of DVT; LE edema COMPARISON STUDY: None. FINDINGS: No DVT within the bilateral common femoral, superficial femoral, popliteal veins. Calf vessels are not well visualized due to the patient's body habitus. There is broken flow within the calf vessels. IMPRESSION: 1. No DVT within the bilateral common femoral through popliteal veins. 2. The calf vessels are not well visualized due to the patient's body habitus. Broken flow favors artifact. Nonocclusive thrombus could also have a similar appearance but are considered less likely. Electronically signed by: Yrn Kaur M.D. 10/30/2017 4:55 PM Dictated Date/Time: 10/30/2017 4:51 PM
--- NOTE | 2017-10-30 17:31 | Cardiology Progress Note ---
Cardiology Progress Note Date of Service Oct 30, 2017. Cardiology Progress Note Echocardiogram reveals severe RV chamber enlargement with diffuse RV hypokinesis. The RA is also dilated , suggestive some degree of chronicity. Severe pulmonary HTN is present based on Doppler. LEVDuplex was negative for DVT. RV dysfunction may be chronic and related to obesity hypoventilation syndrome however PE is still a concern given degree of hypoxia on bipap. Troponin negative x 2 thus far, however, EKG reveals ischemic changes. Plan: will trend troponin. Start UF heparin gtt, standard protocol, no bolus given recent SQ heparin dose Discussed with Dr Peralta by phone. Echo 10/30/17 as below-no prior echo available for comparison: Name: BRODERICK SNOWDEN Study Date: 10/30/2017 09:17 AM BP: 96/55 mmHg Patient Location: [facility] [place]^08^1 HR: 87 : 1960 (M/d/yyyy) Gender: Female Height: 67 in Age: 57 yrs Ethnicity: [place] Weight: 372 lb Ordering Physician: Elvin De Los Santos Referring Physician: Self, Referred Performed By: Virginia Flower, [facility] Reason For Study: CHF BSA: 2.6 m2. SUMMARY: The study was technically limited but adequate for the referral indication. There is moderate concentric left ventricular hypertrophy. The right ventricle is severely dilated. Severe diffuse right ventricular hypokinesis is present. The left ventricular chamber size is small by comparison. Flattened septum is consistent with RV pressure/volume overload. The LV wall motion is otherwise normal. The left ventricular ejection Fraction = >70 %. There is mild to moderate tricuspid regurgitation. Severe pulmonary hypertension is present, the calculated pulmonary artery systolic pressure is in the range of 70-80 mmHg. The right atrium is moderately dilated. Procedure Details A complete two-dimensional transthoracic echocardiogram was performed (2D, M- mode, Doppler and color flow Doppler). The study was technically difficult. Left Ventricle The left ventricular cavity is small. There is moderate concentric left ventricular hypertrophy. Left ventricular systolic function is normal. Ejection Fraction = >70 %. Flattened septum is consistent with RV pressure/volume overload. The LV wall motion is otherwise normal. Right Ventricle The right ventricle is severely dilated. Severe diffuse right ventricular hypokinesis is present. Atria The left atrial size is normal. The right atrium is moderately dilated. There is no evidence of atrial septal defect, but resolution does not allow assessment for a patent foramen ovale. Aortic Valve The aortic valve is trileaflet. There is no significant aortic regurgitation. Aortic stenosis is absent. Pulmonic Valve The pulmonary valve is not well seen, but the Doppler examination is normal without significant regurgitation or stenosis. Mitral Valve The mitral valve is normal. Significant mitral regurgitation is absent. There is no mitral valve stenosis. Tricuspid Valve The tricuspid valve is normal. There is mild to moderate tricuspid regurgitation. Severe pulmonary hypertension is present, the calculated pulmonary artery systolic pressure is in the range of 70-80 mmHg. There is no tricuspid stenosis. Great Vessels The aortic root and proximal ascending aorta are normal sized. Inferior vena cava is dilated, however collapses 50% with inspiration consistent with an intermediate right atrial pressure of 8 mmHg. Pericardium/Pleural There is no pericardial effusion.
[2017-10-30] MEDS ORDERED: HEPARIN 25,000 UNIT/500ML D5W 500 ML IV SCH (17:45)
[2017-10-30 18:10] LABS: EOS % 0.1 %; EOS ABS # 0.01 K/uL (0-0.5); HEMATOCRIT 46.4 % (37-47); HEMOGLOBIN 14.3 g/dL (12.0-16.0); IG# 0.06 K/uL (0.00-0.02); LYMPH % 8.2 %; LYMPH ABS # 0.64 K/uL (1.2-3.4); MEAN CELL VOLUME 98.1 fL (80-100); MEAN CORPUSCULAR HEMOGLOBIN 30.2 pg (25-34); MONO % 2.7 %; MONO ABS # 0.21 K/uL (0.11-0.59); NEUT % 88.2 %; NEUT ABS # 6.92 K/uL (1.4-6.5); PLATELET COUNT 241 K/uL (130-400); RED CELL DISTRIBUTION WIDTH CV 16.6 % (11.5-14.5); RED CELL DISTRIBUTION WIDTH SD 59.3 fL (36.4-46.3); WHITE BLOOD COUNT 7.84 K/uL (4.8-10.8)
[2017-10-30 18:17] LABS: MEAN CORPUSCULAR HGB CONC 30.8 g/dl (32-36)
[2017-10-30 18:23] LABS: INR 1.1 (0.9-1.1); PTT PATIENT 24.9 SECONDS (21.0-31.0)
[2017-10-30] MEDS ORDERED: HEPARIN IV BOLUS 8,000 UNIT in SYRINGE 0 ML IV ONE (18:45)
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
--- NOTE | 2017-10-30 18:53 | Procedure Note ---
Procedure Note Date of Service Oct 30, 2017. Procedure Note Critical Care Medicine Point of Care Bedside Ultrasound Procedure: Limited Bedside Lung Ultrasound Procedure Date: October 30, 2017 Indication: Acute hypercarbic hypoxic respiratory failure Attending: Marleni Gee DO Organs Examined: Lung BLUE point (upper), BLUE point (lower), Phrenic Point (axillary), PLAPS point ( posterior) A lines visualized: Present, Hemithorax: Bilaterally B lines visualized: Absent, Hemithorax: Bilaterally Lung Sliding: Present, Hemithorax: Bilaterally Tissue-like Sign: Absent, Hemithorax: Bilaterally Shred Sign: Absent, Hemithorax: Bilaterally Quad Sign: Absent, Hemithorax: Bilateral Sinusoid Sign: Absent, Hemithorax: Bilateral Type of effusions: None, Hemithorax: Bilateral Interpleural distance: Not applicable Impression: Type a profile bilaterally Images obtained are saved for permanent record
[2017-10-30] MEDS: HEPARIN 25,000 UNIT/500ML D5W 500 ML IV SCH (18:58)
[2017-10-30 19:03] LABS: CREATININE 1.52 mg/dl (0.60-1.20); GLUCOSE 224 mg/dl (70-99)
[2017-10-30 19:04] LABS: BLOOD UREA NITROGEN 80 mg/dl (7-18); CARBON DIOXIDE 27 mmol/L (21-32); POTASSIUM 5.7 mmol/L (3.5-5.1); SODIUM 135 mmol/L (136-145)
[2017-10-30 21:04] LABS: ALBUMIN 3.1 gm/dl (3.4-5.0)
[2017-10-30] MEDS: OXYCODONE/ACETAMINOPHEN 7.5-325 TAB PO PRN (21:19)
--- NOTE | 2017-10-30 21:20 | Progress Note ---
Medicine Progress Note Date & Time of Visit: Oct 30, 2017 at 21:20 . Subjective Admitted last night with SOB, CHF, and other problems. Evaluated several times throughout the day. Somnolent. Removed O2 and O2 sats fell to the 60's. K this morning 6.0. No associated EKG changes. Received calcium gluconate, D50/insulin, patiromer, IV furosemide. ABG @ 0913 on 4 L NC demonstrated pO2 54, pCO2 72, HCO3 26, pH 7.18. Placed on BiPAP. Bedside echo performed. Preliminary reading per Cardiology: grossly normal LV function, dilated RV with decreased systolic function. Repeat ABG @ 1045 on BiPAP with FIO2 60% revealed pO2 106, pCO2 78, HCO3 27, pH 7.16. BiPAP adjustments made. Repeat ABG @ 12:54 on BiPAP with FIO2 40% demonstrated pO2 71, pCO2 77, HCO3 28 , pH 7.18. Case discussed with Critical Care Medicine. Patient transferred to ICU. Re-assessed in late afternoon. Comfortable on BiPAP. Good urine output after 2nd dose of IV furosemide. . Objective Last 8 Hrs Date Time Temp Pulse Resp B/P (MAP) Pulse Ox O2 Delivery O2 Flow Rate FiO2 10/30/17 20:05 82 24 119/61 (80) 94 Nasal Cannula 5.0 10/30/17 19:48 96 Nasal Cannula 5.0 97 Mask 10/30/17 19:41 74 18 Mask 4.0 97 10/30/17 19:02 37.0 76 18 140/61 (87) 99 Oxymask 4.0 10/30/17 18:02 36.3 78 20 121/58 (79) 96 BiPAP 30 10/30/17 17:02 73 19 133/50 (77) 94 BiPAP 30 10/30/17 16:02 36.4 70 19 109/56 (73) 97 BiPAP 30 10/30/17 16:00 BiPAP 30 10/30/17 15:36 70 97 30 10/30/17 15:02 75 22 118/51 (73) 99 BiPAP 40 10/30/17 15:00 76 24 98 BiPAP 40 10/30/17 14:48 74 21 40 BiPAP/CPAP 95 10/30/17 14:48 74 95 40 Physical Exam: General- lying in bed; no acute distress ENT- BiPAP Lungs- bibasilar rales, diffuse mild wheezing Cardiovascular- distant heart sounds; RRR; no murmur or gallop appreciated; neck veins difficulty to assess; 1-2+ pretibial edema Abdomen- obese, + bowel sounds, soft, nontender Extremities- no calf tenderness Neuro- somnolent Skin- warm & dry . Laboratory Results: Last 24 Hours Test 10/29/17 21:48 10/30/17 00:46 10/30/17 06:15 10/30/17 07:34 Venous Blood pH 7.20 Venous Blood Partial Pressure CO2 69 mmHg Venous Blood Partial Pressure O2 42 mmHg Venous Blood HCO3 27 mmol/L Venous Blood Oxygen Saturation 71.1 % Venous Blood Base Excess -2.8 mEq/L Bedside Glucose 153 mg/dl 244 mg/dl White Blood Count 8.92 K/uL Red Blood Count 4.78 M/uL Hemoglobin 14.3 g/dL Hematocrit 47.0 % Mean Corpuscular Volume 98.3 fL Mean Corpuscular Hemoglobin 29.9 pg Mean Corpuscular Hemoglobin Concent 30.4 g/dl Platelet Count 258 K/uL Mean Platelet Volume 10.3 fL Neutrophils (%) (Auto) 94.9 % Lymphocytes (%) (Auto) 4.0 % Monocytes (%) (Auto) 0.3 % Eosinophils (%) (Auto) 0.0 % Basophils (%) (Auto) 0.1 % Neutrophils # (Auto) 8.46 K/uL Lymphocytes # (Auto) 0.36 K/uL Monocytes # (Auto) 0.03 K/uL Eosinophils # (Auto) 0.00 K/uL Basophils # (Auto) 0.01 K/uL RDW Standard Deviation 59.2 fL RDW Coefficient of Variation 16.6 % Immature Granulocyte % (Auto) 0.7 % Immature Granulocyte # (Auto) 0.06 K/uL Prothrombin Time 11.6 SECONDS Prothromb Time International Ratio 1.1 Sodium Level 135 mmol/L Potassium Level 6.0 mmol/L Chloride Level 104 mmol/L Carbon Dioxide Level 24 mmol/L Anion Gap 7.0 mmol/L Blood Urea Nitrogen 81 mg/dl Creatinine 1.69 mg/dl Est Creatinine Clear Calc Drug Dose 60.4 ml/min Estimated GFR () 38.7 Estimated GFR (Non- 33.4 BUN/Creatinine Ratio 47.8 Random Glucose 251 mg/dl Estimated Average Glucose 237 mg/dl Hemoglobin A1c 9.9 % Calcium Level 8.4 mg/dl Magnesium Level 2.1 mg/dl Troponin I 0.018 ng/ml Triglycerides Level 67 mg/dl Cholesterol Level 133 mg/dl HDL Cholesterol 36 mg/dl LDL Cholesterol, Calculated 84 mg/dl VLDL Cholesterol, Calculated 13 mg/dl Cholesterol/HDL Ratio 3.7 Thyroid Stimulating Hormone (TSH) 1.110 uIu/ml Random Cortisol 13.67 mcg/dl Hepatitis C Antibody Screen NEG Test 10/30/17 09:13 10/30/17 10:45 10/30/17 11:22 10/30/17 12:23 Arterial Blood pH 7.18 7.16 Arterial Blood Partial Pressure CO2 72 mmHg 78 mmHg Arterial Blood Partial Pressure O2 54 mm/Hg 106 mm/Hg Arterial Blood HCO3 26 mmol/L 27 mmol/L Arterial Blood Oxygen Saturation 84.0 % 97.0 % Arterial Blood Base Excess -4.1 mEq/L -3.5 mEq/L Arterial Blood Gas Delivery 4L BI-PAP Henri Test POS POS Sodium Level 136 mmol/L Potassium Level 5.6 mmol/L 5.8 mmol/L Chloride Level 104 mmol/L Carbon Dioxide Level 26 mmol/L Anion Gap 6.0 mmol/L Blood Urea Nitrogen 83 mg/dl Creatinine 1.75 mg/dl Est Creatinine Clear Calc Drug Dose 58.4 ml/min Estimated GFR () 37.1 Estimated GFR (Non- 32.0 BUN/Creatinine Ratio 47.3 Random Glucose 257 mg/dl Calcium Level 8.3 mg/dl Bedside Glucose 219 mg/dl Test 10/30/17 12:54 10/30/17 16:31 10/30/17 17:49 10/30/17 18:05 Arterial Blood pH 7.18 Arterial Blood Partial Pressure CO2 77 mmHg Arterial Blood Partial Pressure O2 71 mm/Hg Arterial Blood HCO3 28 mmol/L Arterial Blood Oxygen Saturation 93.0 % Arterial Blood Base Excess -2.4 mEq/L Arterial Blood Gas Delivery BI-PAP Henri Test POS Pass Bedside Glucose 212 mg/dl White Blood Count 7.84 K/uL Red Blood Count 4.73 M/uL Hemoglobin 14.3 g/dL Hematocrit 46.4 % Mean Corpuscular Volume 98.1 fL Mean Corpuscular Hemoglobin 30.2 pg Mean Corpuscular Hemoglobin Concent 30.8 g/dl Platelet Count 241 K/uL Mean Platelet Volume 10.0 fL Neutrophils (%) (Auto) 88.2 % Lymphocytes (%) (Auto) 8.2 % Monocytes (%) (Auto) 2.7 % Eosinophils (%) (Auto) 0.1 % Basophils (%) (Auto) 0.0 % Neutrophils # (Auto) 6.92 K/uL Lymphocytes # (Auto) 0.64 K/uL Monocytes # (Auto) 0.21 K/uL Eosinophils # (Auto) 0.01 K/uL Basophils # (Auto) 0.00 K/uL RDW Standard Deviation 59.3 fL RDW Coefficient of Variation 16.6 % Immature Granulocyte % (Auto) 0.8 % Immature Granulocyte # (Auto) 0.06 K/uL Prothrombin Time 11.8 SECONDS Prothromb Time International Ratio 1.1 Activated Partial Thromboplast Time 24.9 SECONDS Partial Thromboplastin Ratio 1.0 Sodium Level 135 mmol/L Potassium Level 5.7 mmol/L Carbon Dioxide Level 27 mmol/L Anion Gap 5.0 mmol/L Blood Urea Nitrogen 80 mg/dl Creatinine 1.52 mg/dl Est Creatinine Clear Calc Drug Dose 67.2 ml/min Estimated GFR () 44.0 Estimated GFR (Non- 37.9 BUN/Creatinine Ratio 52.6 Random Glucose 224 mg/dl Calcium Level 9.0 mg/dl Troponin I < 0.015 ng/ml Blood Gas Sample Site L Radial Bedside Blood Gas pH (LAB) 7.28 Bedside Blood Gas pCO2 (LAB) 62 mmHg Bedside Blood Gas pO2 (LAB) 62 mmHg Bedside Blood Gas HCO3 (LAB) 29 meq/L Bedside Blood Gas Total CO2 31 mEq/l Bedside Blood Gas Base Excess (LAB) 2.0 meq/L Bedside Blood Gas O2 Saturation 89.0 % Oxygen Delivery Device BIPAP Bedside FiO2 30 % Blood Gas IPAP 18 Test 10/30/17 19:56 10/30/17 19:57 10/30/17 20:36 Procalcitonin 0.17 ng/ml Lactic Acid Level 0.9 mmol/L Total Bilirubin 0.6 mg/dl Direct Bilirubin 0.2 mg/dl Aspartate Amino Transf (AST/SGOT) 25 U/L Alanine Aminotransferase (ALT/SGPT) 38 U/L Alkaline Phosphatase 78 U/L Ammonia 25.2 umol/L Total Protein 8.0 gm/dl Albumin 3.1 gm/dl Bedside Glucose 233 mg/dl Date/Time Source Procedure Growth Status 10/30/17 16:30 Nasal MRSA DNA Surveillance Screen - Final Specimen Negative for MRSA by DNA Probe Complete Assessment & Plan ACUTE ON CHRONIC RESPIRATORY FAILURE Acute hypoxic and hypercapnic respiratory failure. Details of baseline respiratory status not yet available, but suspect some degree of chronicity. Hypoxia could be secondary to CHF and COPD. Consider pulmonary embolism. Will not pursue CT of chest this time due to renal insufficiency. Venous duplex lower extremities negative for DVT. Hypercapnia probably secondary to combination of COPD, obesity hypoventilation syndrome. Specific problems addressed below. BiPAP initiated for ventilatory support. SLEEP APNEA Previously diagnosed. Reportedly noncompliant with CPAP. COPD Baseline PFT's not available. Continue steroids and bronchodilators. CHF Presented with weight gain and shortness of breath. Chest x-ray demonstrated cardiomegaly and pulmonary vascular congestion. BNP was elevated. Preliminary echo report: grossly normal LV systolic function; dilated RV with decreased systolic function. Suspect acute on chronic left ventricular diastolic heart failure. Suspect acute on chronic right ventricular heart failure secondary to underlying pulmonary diseases. Old records from [place] requested for baseline data. Diurese as necessary. ABNORMAL EKG EKG demonstrated nonspecific changes suggesting ischemia. Cardiology consulted. Serum troponins negative x 3. No apparent left ventricular segmental wall motion abnormalities on echo. HYPERTENSION Lisinopril stopped due to hyperkalemia. Follow and titrate therapy. RENAL INSUFFICIENCY Serum creatinine at time of admission was 1.84. Baseline creatinine unknown. Uses ibuprofen PRN-discontinued. Creatinine this morning = 1.69. Nephrology consulted. HYPERKALEMIA Serum potassium at time of admission was 5.9. Patient was taking CESAR inhibitor which was discontinued. Potassium this morning was 6.0. Received calcium gluconate, D50/insulin, patiromer, IV furosemide. Repeat potassium at 1045 was 5.6. Hyperkalemia probably multifactorial- CESAR inhibitor, respiratory acidosis, renal insufficiency. Follow. DM TYPE 2 History of diabetes mellitus type 2, usually managed with metformin, glimepiride , sitagliptin. Random glucose in ED 99. Hemoglobin A1c 9.9. Hold oral agents during hospital stay. Lantus/NovoLog per protocol. INCOMPLETE DATA Records from [place] requested. VTE PROPHYLAXIS Initially received SQ heparin. Started on IV heparin for possible thromboembolic disease. DISPOSITION Critically ill. Discharge disposition to be determined. CRITICAL CARE TIME Critically ill. At least 55 minutes time spent on direct patient care. . Current Inpatient Medications: Current Inpatient Medications Medications (Trade) Dose Ordered Sig/Sheryl Route Start Time Stop Time Status Last Admin Dose Admin Acetaminophen (Tylenol Tab) 650 mg Q4H PRN PO 10/29/17 23:15 11/28/17 23:14 Al Hydrox/Mg Hydrox/Simethicone (Maalox Max Susp) 15 ml Q4H PRN PO 10/29/17 23:15 11/28/17 23:14 Ondansetron HCl (Zofran Inj) 4 mg Q6H PRN IV 10/29/17 23:15 11/28/17 23:14 Nitroglycerin (Nitrostat Tab) 0.4 mg UD PRN SL 10/29/17 23:15 11/28/17 23:14 Polyethylene (Miralax Powder Packet) 17 gm DAILY PRN PO 10/29/17 23:15 11/28/17 23:14 Gabapentin (Neurontin Tab) 800 mg BID PRN PO 10/29/17 23:15 11/28/17 23:14 Future Hold Oxycodone/ Acetaminophen (Percocet 7.5-325MG Tab) 1 tab Q8 PRN PO 10/29/17 23:15 11/12/17 23:14 Miscellaneous Information (Order Awaiting Action) 1 ea QS N/A 10/30/17 08:00 11/29/17 07:59 Miscellaneous Information (Order Awaiting Action) 1 ea QS N/A 10/30/17 08:00 11/29/17 07:59 Albuterol/ Ipratropium (Duoneb) 3 ml QIDR INH 10/30/17 08:00 11/29/17 07:59 10/30/17 19:40 3 ML Prednisone (PredniSONE TAB) 40 mg DAILY PO 10/30/17 09:00 11/29/17 08:59 10/30/17 08:09 40 MG Levofloxacin 750 mg/Prmx 150 ml @ 100 mls/hr Q24H IV 10/30/17 02:00 11/06/17 01:59 10/30/17 02:06 100 MLS/HR Insulin Glargine (Lantus Solostar Pen) 5 units BID SC 10/30/17 09:00 11/29/17 08:59 10/30/17 21:12 5 UNITS Insulin Aspart (novoLOG ASPART) SLIDING SCALE G... ACHS SC 10/30/17 07:00 11/29/17 06:59 10/30/17 21:11 9 UNITS Hydralazine HCl (Apresoline Tab) 10 mg Q6 PRN PO 10/29/17 23:15 11/28/17 23:14 10/30/17 08:08 10 MG Glucose (Glucose 40% Gel) 15-30 GRAMS 15 GRAMS... UD PRN PO 10/29/17 23:45 11/28/17 23:44 Glucose (Glucose Chew Tab) 4-8 Tablets 4 Tabl... UD PRN PO 10/29/17 23:45 11/28/17 23:44 Dextrose (Dextrose 50% 50ML Syringe) 25-50ML 25ML FOR ... UD PRN IV 10/29/17 23:45 11/28/17 23:44 Glucagon (Glucagon Inj) 1 mg UD PRN IM 10/29/17 23:45 11/28/17 23:44 Carbohydrates (Carbohydrates For Hypoglycemia) 15-30 GRAMS 15 grams if BSG 54-69... UD PRN PO 10/29/17 23:45 11/28/17 23:44 Levofloxacin (Consult) 1 ea UD PRN N/A 10/30/17 01:15 11/29/17 01:14 Nystatin (Mycostatin Oint) 1 appln BID EXT 10/30/17 09:00 11/29/17 08:59 10/30/17 21:04 1 APPLN Heparin Sodium/ Dextrose 500 ml @ 37 mls/hr [id number] IV 10/30/17 18:45 11/29/17 18:44 10/30/17 18:58 37 MLS/HR
[2017-10-31] VITALS (23 sets, daily range): BP systolic 90–158; BP diastolic 42–84; PULSE 68–109; TEMP 36.4–37; O2SAT 89–96; BMI 55.9
[2017-10-31 01:12] LABS: PTT PATIENT 85.7 SECONDS (21.0-31.0)
[2017-10-31] MEDS: LEVOFLOXACIN / D5W 750 MG in PREMIXED IN D5W 150 ML IV SCH (02:19)
[2017-10-31 04:19] LABS: BASO % 0.1 %; BASO ABS # 0.01 K/uL (0-0.2); EOS % 0.1 %; EOS ABS # 0.01 K/uL (0-0.5); HEMATOCRIT 45.1 % (37-47); HEMOGLOBIN 13.9 g/dL (12.0-16.0); IG# 0.05 K/uL (0.00-0.02); LYMPH % 12.5 %; LYMPH ABS # 1.33 K/uL (1.2-3.4); MEAN CELL VOLUME 97.4 fL (80-100); MEAN CORPUSCULAR HGB CONC 30.8 g/dl (32-36); MEAN PLATELET VOLUME 9.8 fL (7.4-10.4); MONO % 7.4 %; MONO ABS # 0.79 K/uL (0.11-0.59); NEUT % 79.4 %; NEUT ABS # 8.44 K/uL (1.4-6.5); PLATELET COUNT 239 K/uL (130-400); RED CELL DISTRIBUTION WIDTH CV 16.7 % (11.5-14.5); RED CELL DISTRIBUTION WIDTH SD 58.3 fL (36.4-46.3); WHITE BLOOD COUNT 10.63 K/uL (4.8-10.8)
[2017-10-31 04:41] LABS: CALCIUM 8.7 mg/dl (8.5-10.1); CREATININE 1.54 mg/dl (0.60-1.20); POTASSIUM 5.3 mmol/L (3.5-5.1)
--- NOTE | 2017-10-31 07:10 | DIAGNOSTIC IMAGING REPORT ---
CHEST ONE VIEW PORTABLE CLINICAL HISTORY: resp failure dyspnea COMPARISON STUDY: 10/29/2017 FINDINGS: Improved exam. Decreased prominence of pulmonary vasculature. Mild stable cardia megaly. Chronic elevation right hemidiaphragm. IMPRESSION: Improving congestive failure. The above report was generated using voice recognition software. It may contain grammatical, syntax or spelling errors. Electronically signed by: Ruiz Vance M.D. 10/31/2017 7:08 AM Dictated Date/Time: 10/31/2017 7:08 AM
[2017-10-31] MEDS: ALBUT/IPRATROP 3MG/0.5MG NEB 3 ML VIAL INH SCH ×4 (07:44→19:15)
[2017-10-31] MEDS: NYSTATIN OINT 15 GM TUBE EXT SCH ×2 (07:47→20:53)
[2017-10-31] MEDS: INSULIN ASPART 100 UNITS/ML 3 ML PEN SC SCH ×4 (07:50→20:56)
[2017-10-31] MEDS: INSULIN GLARGINE SOLOSTAR 100 UNITS/ML 3 ML PEN SC SCH (07:51)
[2017-10-31] MEDS: HEPARIN 25,000 UNIT/500ML D5W 500 ML IV SCH (07:53)
[2017-10-31 08:35] LABS: PTT PATIENT 67.5 SECONDS (21.0-31.0)
--- NOTE | 2017-10-31 08:57 | Critical Care Progress Note ---
Critical Care Progress Note Date of Service Oct 31, 2017. ICU Day ICU Day Number: [address] Gee Subjective No overnight events improved compared to yesterday no significant complaints. Has explored gastric bypass surgery in the past and this was not encouraged by her primary care doctor. Reports she previously lost weight without medication or surgical intervention from 400 pounds to approximately 260. Understands risks and benefits of anticoagulation prefers to go on Xarelto as opposed to Coumadin. Objective General: Alert. nontoxic. Skin: Warm, dry, Head: Atraumatic Ears, nose, mouth and throat: airway patent Cardiovascular: Normal peripheral perfusion, systolic ejection murmur Respiratory: no respiratory distress, lungs clear to auscultation bilaterally Gastrointestinal: Non distended, rotund Musculoskeletal: No deformity, 1+ pitting edema bilateral lower extremities Assessment & Plan PLAN: Neuro: Somnolence upon waking: Resolved -Likely related to obesity hypoventilation syndrome and possibly contributed by acute kidney injury -Check ammonia level: Within normal limits Chronic pain -Patient on gabapentin 800 mg twice daily which may cause accumulation in the setting of acute kidney injury will hold -Judicious use of narcotics, observe for oversedation Resp: COPD secondary to tobacco abuse Likely obesity hypoventilation syndrome -Patient reports that 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 Can discontinue end-tidal CO2 monitoring CV: Cor pulmonale -Severe pulmonary hypertension with right ventricular dilatation -Reviewed cardiology notes Troponins not elevated at this time BNP elevated Fluids/Renal: Acute kidney injury: Improving - Unknown baseline, creatinine currently 1.75 Hyperkalemia: Improving -Medical management -Reviewed nephrology consultation ID: Patient is on Levaquin for presumptive COPD exacerbation -Procalcitonin reviewed, urinalysis reviewed -EKG at baseline revealed QTC of 456 will monitor QTc interval, QTC 409 today -Will put stop date for 5 days for Levaquin for presumptive COPD exacerbation GI/Nutrition: Anasarca -LFTs within normal limits Heme: History of DVT -Given clinical suspicion will place on anticoagulation Endocrine: Diabetes mellitus -ICU hyperglycemia protocol -A1c 10, diabetic education consult Vascular access: Peripheral IVs Code Status: DNR in event of cardiac arrest, patient okay with short-term mechanical ventilation not okay with tracheostomy nor long-term mechanical ventilation. Discussed with Dr. Peralta the hospitalist service, stable for downgrade to telemetry status. Data Medications: Current Inpatient Medications Medications (Trade) Dose Ordered Sig/Sheryl Route Start Time Stop Time Status Last Admin Dose Admin Acetaminophen (Tylenol Tab) 650 mg Q4H PRN PO 10/29/17 23:15 11/28/17 23:14 Al Hydrox/Mg Hydrox/Simethicone (Maalox Max Susp) 15 ml Q4H PRN PO 10/29/17 23:15 11/28/17 23:14 Ondansetron HCl (Zofran Inj) 4 mg Q6H PRN IV 10/29/17 23:15 11/28/17 23:14 Nitroglycerin (Nitrostat Tab) 0.4 mg UD PRN SL 10/29/17 23:15 11/28/17 23:14 Polyethylene (Miralax Powder Packet) 17 gm DAILY PRN PO 10/29/17 23:15 11/28/17 23:14 Gabapentin (Neurontin Tab) 800 mg BID PRN PO 10/29/17 23:15 11/28/17 23:14 Future Hold Oxycodone/ Acetaminophen (Percocet 7.5-325MG Tab) 1 tab Q8 PRN PO 10/29/17 23:15 11/12/17 23:14 10/30/17 21:19 1 TAB Miscellaneous Information (Order Awaiting Action) 1 ea QS N/A 10/30/17 08:00 11/29/17 07:59 Miscellaneous Information (Order Awaiting Action) 1 ea QS N/A 10/30/17 08:00 11/29/17 07:59 Albuterol/ Ipratropium (Duoneb) 3 ml QIDR INH 10/30/17 08:00 11/29/17 07:59 10/31/17 07:44 3 ML Prednisone (PredniSONE TAB) 40 mg DAILY PO 10/30/17 09:00 11/29/17 08:59 10/31/17 07:47 40 MG Levofloxacin 750 mg/Prmx 150 ml @ 100 mls/hr Q24H IV 10/30/17 02:00 11/06/17 01:59 10/31/17 02:19 100 MLS/HR Insulin Glargine (Lantus Solostar Pen) 5 units BID SC 10/30/17 09:00 11/29/17 08:59 10/31/17 07:51 5 UNITS Insulin Aspart (novoLOG ASPART) SLIDING SCALE G... ACHS SC 10/30/17 07:00 11/29/17 06:59 10/31/17 07:50 5 UNITS Hydralazine HCl (Apresoline Tab) 10 mg Q6 PRN PO 10/29/17 23:15 11/28/17 23:14 10/30/17 08:08 10 MG Glucose (Glucose 40% Gel) 15-30 GRAMS 15 GRAMS... UD PRN PO 10/29/17 23:45 11/28/17 23:44 Glucose (Glucose Chew Tab) 4-8 Tablets 4 Tabl... UD PRN PO 10/29/17 23:45 11/28/17 23:44 Dextrose (Dextrose 50% 50ML Syringe) 25-50ML 25ML FOR ... UD PRN IV 10/29/17 23:45 11/28/17 23:44 Glucagon (Glucagon Inj) 1 mg UD PRN IM 10/29/17 23:45 11/28/17 23:44 Carbohydrates (Carbohydrates For Hypoglycemia) 15-30 GRAMS 15 grams if BSG 54-69... UD PRN PO 10/29/17 23:45 11/28/17 23:44 Levofloxacin (Consult) 1 ea UD PRN N/A 10/30/17 01:15 11/29/17 01:14 Nystatin (Mycostatin Oint) 1 appln BID EXT 10/30/17 09:00 11/29/17 08:59 10/31/17 07:47 1 APPLN Heparin Sodium/ Dextrose 500 ml @ 33 mls/hr [id number] IV 10/30/17 18:45 11/29/17 18:44 10/31/17 07:53 33 MLS/HR Miscellaneous Information (Nursing Heparin Iv Rate Change) 1 ea ONE ONCE N/A 10/31/17 08:45 10/31/17 08:46 UNV Vital Signs: Date Time Temp Pulse Resp B/P (MAP) Pulse Ox O2 Delivery O2 Flow Rate FiO2 10/31/17 07:45 77 18 Mask 5.0 93 10/31/17 06:02 86 18 101/84 (90) 93 BiPAP 30 10/31/17 05:02 36.4 72 22 133/60 (84) 92 BiPAP 30 10/31/17 04:01 73 18 123/62 (82) 93 BiPAP 30 10/31/17 03:01 71 20 114/56 (75) 91 BiPAP 30 10/31/17 02:01 71 20 98/42 (60) 89 10/31/17 01:18 75 20 104/47 (66) 92 10/31/17 00:16 37.0 70 20 90/48 (62) 91 BiPAP 30 10/30/17 23:02 72 20 85/48 (60) 90 10/30/17 22:44 73 20 99/45 (63) 90 10/30/17 22:22 87 91 40 10/30/17 22:02 75 17 83/43 (56) 90 BiPAP 30 10/30/17 21:02 80 19 98/45 (62) 94 Nasal Cannula 5.0 10/30/17 20:05 82 24 119/61 (80) 94 Nasal Cannula 5.0 10/30/17 19:48 96 Nasal Cannula 5.0 97 Mask 10/30/17 19:41 74 18 Mask 4.0 97 10/30/17 19:02 37.0 76 18 140/61 (87) 99 Oxymask 4.0 10/30/17 18:02 36.3 78 20 121/58 (79) 96 BiPAP 30 10/30/17 17:02 73 19 133/50 (77) 94 BiPAP 30 10/30/17 16:02 36.4 70 19 109/56 (73) 97 BiPAP 30 10/30/17 16:00 BiPAP 30 10/30/17 15:36 70 97 30 10/30/17 15:02 75 22 118/51 (73) 99 BiPAP 40 10/30/17 15:00 76 24 98 BiPAP 40 10/30/17 14:48 74 21 40 BiPAP/CPAP 95 10/30/17 14:48 74 95 40 10/30/17 12:00 BiPAP 40 10/30/17 11:42 36.8 78 26 129/69 (89) 96 BiPAP 4.0 10/30/17 11:15 81 99 40 10/30/17 11:15 79 18 60 BiPAP/CPAP 99 10/30/17 09:50 82 95 60 Laboratory Results: Last 24 Hours Test 10/30/17 09:13 10/30/17 10:45 10/30/17 11:22 10/30/17 12:23 Arterial Blood pH 7.18 7.16 Arterial Blood Partial Pressure CO2 72 mmHg 78 mmHg Arterial Blood Partial Pressure O2 54 mm/Hg 106 mm/Hg Arterial Blood HCO3 26 mmol/L 27 mmol/L Arterial Blood Oxygen Saturation 84.0 % 97.0 % Arterial Blood Base Excess -4.1 mEq/L -3.5 mEq/L Arterial Blood Gas Delivery 4L BI-PAP Henri Test POS POS Sodium Level 136 mmol/L Potassium Level 5.6 mmol/L 5.8 mmol/L Chloride Level 104 mmol/L Carbon Dioxide Level 26 mmol/L Anion Gap 6.0 mmol/L Blood Urea Nitrogen 83 mg/dl Creatinine 1.75 mg/dl Est Creatinine Clear Calc Drug Dose 58.4 ml/min Estimated GFR () 37.1 Estimated GFR (Non- 32.0 BUN/Creatinine Ratio 47.3 Random Glucose 257 mg/dl Calcium Level 8.3 mg/dl Bedside Glucose 219 mg/dl Test 10/30/17 12:54 10/30/17 16:31 10/30/17 17:49 10/30/17 18:05 Arterial Blood pH 7.18 Arterial Blood Partial Pressure CO2 77 mmHg Arterial Blood Partial Pressure O2 71 mm/Hg Arterial Blood HCO3 28 mmol/L Arterial Blood Oxygen Saturation 93.0 % Arterial Blood Base Excess -2.4 mEq/L Arterial Blood Gas Delivery BI-PAP Henri Test POS Pass Bedside Glucose 212 mg/dl White Blood Count 7.84 K/uL Red Blood Count 4.73 M/uL Hemoglobin 14.3 g/dL Hematocrit 46.4 % Mean Corpuscular Volume 98.1 fL Mean Corpuscular Hemoglobin 30.2 pg Mean Corpuscular Hemoglobin Concent 30.8 g/dl Platelet Count 241 K/uL Mean Platelet Volume 10.0 fL Neutrophils (%) (Auto) 88.2 % Lymphocytes (%) (Auto) 8.2 % Monocytes (%) (Auto) 2.7 % Eosinophils (%) (Auto) 0.1 % Basophils (%) (Auto) 0.0 % Neutrophils # (Auto) 6.92 K/uL Lymphocytes # (Auto) 0.64 K/uL Monocytes # (Auto) 0.21 K/uL Eosinophils # (Auto) 0.01 K/uL Basophils # (Auto) 0.00 K/uL RDW Standard Deviation 59.3 fL RDW Coefficient of Variation 16.6 % Immature Granulocyte % (Auto) 0.8 % Immature Granulocyte # (Auto) 0.06 K/uL Prothrombin Time 11.8 SECONDS Prothromb Time International Ratio 1.1 Activated Partial Thromboplast Time 24.9 SECONDS Partial Thromboplastin Ratio 1.0 Sodium Level 135 mmol/L Potassium Level 5.7 mmol/L Carbon Dioxide Level 27 mmol/L Anion Gap 5.0 mmol/L Blood Urea Nitrogen 80 mg/dl Creatinine 1.52 mg/dl Est Creatinine Clear Calc Drug Dose 67.2 ml/min Estimated GFR () 44.0 Estimated GFR (Non- 37.9 BUN/Creatinine Ratio 52.6 Random Glucose 224 mg/dl Calcium Level 9.0 mg/dl Troponin I < 0.015 ng/ml Blood Gas Sample Site L Radial Bedside Blood Gas pH (LAB) 7.28 Bedside Blood Gas pCO2 (LAB) 62 mmHg Bedside Blood Gas pO2 (LAB) 62 mmHg Bedside Blood Gas HCO3 (LAB) 29 meq/L Bedside Blood Gas Total CO2 31 mEq/l Bedside Blood Gas Base Excess (LAB) 2.0 meq/L Bedside Blood Gas O2 Saturation 89.0 % Oxygen Delivery Device BIPAP Bedside FiO2 30 % Blood Gas IPAP 18 Test 10/30/17 19:56 10/30/17 19:57 10/30/17 20:36 10/31/17 00:43 Procalcitonin 0.17 ng/ml Lactic Acid Level 0.9 mmol/L Total Bilirubin 0.6 mg/dl Direct Bilirubin 0.2 mg/dl Aspartate Amino Transf (AST/SGOT) 25 U/L Alanine Aminotransferase (ALT/SGPT) 38 U/L Alkaline Phosphatase 78 U/L Ammonia 25.2 umol/L Total Protein 8.0 gm/dl Albumin 3.1 gm/dl Bedside Glucose 233 mg/dl Activated Partial Thromboplast Time 85.7 SECONDS Partial Thromboplastin Ratio 3.3 Test 10/31/17 03:30 10/31/17 04:03 10/31/17 07:44 10/31/17 07:51 Urine Color YELLOW Urine Appearance CLOUDY Urine pH 5.0 Urine Specific [place] 1.018 Urine Protein NEG Urine Glucose (UA) NEG Urine Ketones NEG Urine Occult Blood 3+ Urine Nitrite NEG Urine Bilirubin NEG Urine Urobilinogen NEG Urine Leukocyte Esterase TRACE Urine WBC (Auto) 1-5 /hpf Urine RBC (Auto) >30 /hpf Urine Hyaline Casts (Auto) >30 /lpf Urine Epithelial Cells (Auto) 5-10 /lpf Urine Bacteria (Auto) NEG Urine Pathogenic Casts /lpf White Blood Count 10.63 K/uL Red Blood Count 4.63 M/uL Hemoglobin 13.9 g/dL Hematocrit 45.1 % Mean Corpuscular Volume 97.4 fL Mean Corpuscular Hemoglobin 30.0 pg Mean Corpuscular Hemoglobin Concent 30.8 g/dl Platelet Count 239 K/uL Mean Platelet Volume 9.8 fL Neutrophils (%) (Auto) 79.4 % Lymphocytes (%) (Auto) 12.5 % Monocytes (%) (Auto) 7.4 % Eosinophils (%) (Auto) 0.1 % Basophils (%) (Auto) 0.1 % Neutrophils # (Auto) 8.44 K/uL Lymphocytes # (Auto) 1.33 K/uL Monocytes # (Auto) 0.79 K/uL Eosinophils # (Auto) 0.01 K/uL Basophils # (Auto) 0.01 K/uL RDW Standard Deviation 58.3 fL RDW Coefficient of Variation 16.7 % Immature Granulocyte % (Auto) 0.5 % Immature Granulocyte # (Auto) 0.05 K/uL Activated Partial Thromboplast Time 70.0 SECONDS 67.5 SECONDS Partial Thromboplastin Ratio 2.7 2.6 Sodium Level 136 mmol/L Potassium Level 5.3 mmol/L Chloride Level 102 mmol/L Carbon Dioxide Level 28 mmol/L Anion Gap 6.0 mmol/L Blood Urea Nitrogen 80 mg/dl Creatinine 1.54 mg/dl Est Creatinine Clear Calc Drug Dose 66.3 ml/min Estimated GFR () 43.3 Estimated GFR (Non- 37.3 BUN/Creatinine Ratio 52.2 Random Glucose 165 mg/dl Calcium Level 8.7 mg/dl Magnesium Level 2.0 mg/dl Troponin I 0.016 ng/ml Bedside Glucose 125 mg/dl
[2017-10-31] MEDS ORDERED: PHARMACY GLYCEMIC MGMT CONSULT PRN (08:58)
[2017-10-31] MEDS ORDERED: INSULIN HUMAN NPH SC ONE (09:00)
[2017-10-31] MEDS: OXYCODONE/ACETAMINOPHEN 7.5-325 TAB PO PRN ×2 (09:49→23:01)
--- NOTE | 2017-10-31 10:12 | Pharmacy Progress Note ---
Glycemic Control Intl Consult Date of Service Oct 31, 2017. Scope Glycemic Pharmacist consulted by Ld Neri PA-C on 10/31 for glycemic control and to write orders per [facility] inpatient glycemic control protocol Objective Weight (Kilograms): 162.000 Accuchecks BSG (last 24hrs): Test 10/30/17 10:45 10/30/17 11:22 10/30/17 16:31 10/30/17 17:49 Random Glucose 257 mg/dl (70-99) 224 mg/dl (70-99) Bedside Glucose 219 mg/dl (70-90) 212 mg/dl (70-90) Test 10/30/17 20:36 10/31/17 04:03 10/31/17 07:44 Bedside Glucose 233 mg/dl (70-90) 125 mg/dl (70-90) Random Glucose 165 mg/dl (70-99) Laboratory Data (last 24hrs) Test 10/30/17 10:45 10/30/17 12:23 10/30/17 17:49 10/31/17 04:03 Anion Gap 6.0 mmol/L 5.0 mmol/L 6.0 mmol/L BUN/Creatinine Ratio 47.3 52.6 52.2 Blood Urea Nitrogen 83 mg/dl 80 mg/dl 80 mg/dl Creatinine 1.75 mg/dl 1.52 mg/dl 1.54 mg/dl Potassium Level 5.6 mmol/L 5.8 mmol/L 5.7 mmol/L 5.3 mmol/L Sodium Level 136 mmol/L 135 mmol/L 136 mmol/L White Blood Count 7.84 K/uL 10.63 K/uL Red Blood Count 4.73 M/uL 4.63 M/uL Hemoglobin 14.3 g/dL 13.9 g/dL Hematocrit 46.4 % 45.1 % Mean Corpuscular Volume 98.1 fL 97.4 fL Mean Corpuscular Hemoglobin 30.2 pg 30.0 pg Mean Corpuscular Hemoglobin Concent 30.8 g/dl 30.8 g/dl Platelet Count 241 K/uL 239 K/uL Mean Platelet Volume 10.0 fL 9.8 fL Neutrophils (%) (Auto) 88.2 % 79.4 % Lymphocytes (%) (Auto) 8.2 % 12.5 % Monocytes (%) (Auto) 2.7 % 7.4 % Eosinophils (%) (Auto) 0.1 % 0.1 % Basophils (%) (Auto) 0.0 % 0.1 % Neutrophils # (Auto) 6.92 K/uL 8.44 K/uL Lymphocytes # (Auto) 0.64 K/uL 1.33 K/uL Monocytes # (Auto) 0.21 K/uL 0.79 K/uL Eosinophils # (Auto) 0.01 K/uL 0.01 K/uL Basophils # (Auto) 0.00 K/uL 0.01 K/uL HbA1c Test 10/30/17 06:15 Hemoglobin A1c 9.9 % (4.5-5.6) H Recent Pertinent Medications Outpatient Anti-diabetic Regimen: * Metformin 850 mg po TID * Glimepiride 4 mg po BID * Sitagliptin 100 mg po daily * A1c = 9.9 % on 10/30/17 The patient is currently receiving: * Basal insulin: Lantus 5 units every 12 hours * Correctional Insulin: Novolog Correction per scale ACHS Goal Range: Low 110 mg/dL - High 140 mg/dL Correction Factor: 30 mg/dL/unit * Prandial insulin: Per carb ratio of 1 unit per 10 grams CHO consumed * Oral Agents: On hold Risk Factors for Insulin Resistance: * Steroids: Methylprednisolone 125 mg IV x1 10/29 PM then prednisone 40 mg po qAM starting 10/30 AM * Infection: COPD exacerbation and/or cellulitis - on levofloxacin * IVF: Heparin drip (mixed in D5) @ 33 mL/hr * Diet: T2DM Assessment & Plan ASSESSMENT: * 57 yo F with acute on chronic respiratory and heart failures currently in ICU * Patient's HbA1c is not well controlled on 3 oral agents at home - would benefit from initiation of insulin as outpatient * Inpatient BSG's not well controlled (all >200 mg/dL yesterday) - likely 2nd steroid-induced hyperglycemia and lower doses of insulin administered (for patient's weight) * AM fasting BSG in range this AM despite lower dose of Lantus yesterday (10 units administered) - patient would benefit from heavier basal load during day to help with post-prandial elevations, but decreased doses overnight to help prevent overnight/AM hypoglycemia as steroid effects dissipate. Will therefore switch from Lantus to NPH * OK to tighten Novolog parameters as all BSG's elevated yesterday despite NPO status - anticipate steroid effects to be more pronounced now that diet is resumed PLAN FOR INPATIENT GLYCEMIC CONTROL: * Holding outpatient oral diabetes medications * Discontinue Lantus * Basal insulin with NPH 12 units SC x1 now * Correctional Insulin with NOVOLOG per scale ACHS or Q6hrs while NPO * Goal Range: Low 120 mg/dL - High 150 mg/dL * Correction Factor: 25 mg/dL/unit * Nutritional / Prandial insulin per carb ratio of 1 unit per 7 grams CHO consumed Discharge recommendations * Patient would likely benefit from initiation of insulin as outpatient based on elevated HbA1c despite 3 oral agents as outpatient * Will follow inpatient regimen to help predict appropriate outpatient regimen, noting a potential for significant differences depending on plan for steroids * human service specialist consulted this AM - awaiting recommendations * Please note that the plan above was derived based on current level of insulin resistance and hospital stress. These recommendations are appropriate for inpatient admission only. Plan of care upon discharge will need to be reassessed to avoid potential outpatient hypo/hyperglycemia. Thank you.
--- NOTE | 2017-10-31 10:18 | Clinical Documentation Query ---
Dr. ESTRADA JUDITH : CLINICAL DOCUMENTATION QUERY Patient is a 57 year old morbidly obese female admitted for acute on chronic LV diastolic heart failure and suspected acute on chronic RV heart failure secondary to pulmonary disease. Patient is a known smoker. On admission, placed on Duonebs ATC and PRN, prednisone, and Levaquin. "diffuse mild wheezing" noted on physical exam. As appropriate, consider capture of this clinical scenario as suggested below. Thank you. In your clinical opinion is this patient being managed for: (x ) COPD exacerbation - possible ( ) Not Agree ( ) Other explanation of clinical findings (No explanation is considered a No Response) ( ) Unable to determine ( ) Need to Discuss (Phone CDS or qliq) (No discussion is considered a No Response) The medical record reflects the following clinical findings, treatment, and risk factors. Clinical Indicators: As above Treatment: PPV, steroids, antibiotics, nebulizers, supplemental O2 Risk Factors: Smoking, morbid obesity Please clarify and document your clinical opinion in the progress notes and discharge summary. Terms such as "probable", "suspected", "likely", "questionable", "possible", or "still to be ruled out" are acceptable. IF IN AGREEMENT, YOU MUST DOCUMENT ABOVE DIAGNOSTIC STATEMENT IN DAILY PROGRESS NOTES AND DISCHARGE SUMMARY. This document is not part of the patient's record. Thank You, Chan Barrera, WILMAN [phone]
--- NOTE | 2017-10-31 12:02 | Cardiology Follow-Up ---
Subjective General Date of Service: Oct 31, 2017. Pt evaluation today including: conversation w/ patient, physical exam, chart review, lab review, review of studies, review of inpatient medication list History of Present Illness Patient sitting up and resting comfortably this afternoon. Much more awake/ alert. Reports SOB and "fluid" has improved. Ongoing dyspnea noted with minimal movement. No chest pain. No dizziness. Ongoing edema and abdominal distention reported. Good diuresis over the last 24 hours Allergies Coded Allergies: No Known Allergies (Unverified , 11/15/11) Social History Smoking Status: Current Every Day Smoker Hx Tobacco Use In Past Year?: Yes Hx Substance Use - Type And Am: No Problem List Medical Problems: (1) Acute kidney injury Status: Acute (2) CHF exacerbation Status: Acute (3) COPD exacerbation Status: Acute (4) Hypokalemia Status: Acute (5) Hypoxia Status: Acute (6) Respiratory acidosis Status: Acute Review of Systems Respiratory: + cough, + wheezing, + shortness of breath, + dyspnea on exertion , No dyspnea at rest, No hemoptysis Cardiac: + orthopnea, + edema, No chest pain, No PND, No palpitations Physical Exam Vital Signs Last Vital Signs Documentation Date Time Temp Pulse Resp B/P (MAP) Pulse Ox O2 Delivery O2 Flow Rate FiO2 10/31/17 11:20 109 18 96 Room Air 10/31/17 09:02 123/73 (90) 5.0 10/31/17 08:01 36.4 10/31/17 07:45 93 Physical Exam Constitutional: General Apperance: obese Level of Distress: NAD, acutely ill, chronically ill Psychiatric: Mental Status: active & alert Orientation: to time, to place, to person Eyes: Pupils: PERRLA Lungs: Auscultation: expiratory wheezing, wet rales/crackles Cardiovascular: Heart Auscultation: RRR, no murmurs Abdomen: Bowel Sounds: normal Inspection & Palpation: soft, non-distended Extremities: edema (2+ edema to hips with chronic stasis changes) Assessment and Plan Assessment and Plan 1. Acute respiratory failure with hypoxia secondary to probable acute diastolic vs acute right heart failure, pickwick[place] 2. Unable to r/o PE - started on IV heparin. History of DVT. May benefit from lifelong anticoagulation due to immobility 3 HEMALATHA with history of non compliance with CPAP 3. COPD wiht ongoing tobacco abuse 4. Patient reports history of DVT, no longer on anticoagulation therapy. 5. Hypertension 6. JANNY with hyperkalemia. 7. Abnormal EKG, negative cardiac enzymes x2 PLAN: Continue IV furosemide with metolazone Monitor I+O's No supplemental potassium. Lisinopril on hold. Monitor K CPAP/BIPAP therapy and supplemental O2. continue IV heparin with possible transition to coumadin rather than NOAC due to unpredictable pharmacokinetics given obesity and renal insufficiency. Case discussed with Dr. Jasso. Will follow CARDIOLOGY ATTENDING ADDENDUM: The patient was seen and personally examined. Agree with Gemma Mullins PA-C's findings and plans as documented above. Patient was more alert this morning when I spoke to her in the intensive care unit this morning. She states that she was prescribed CPAP approximately 8 years ago but she did not tolerate it. Therefore she is known to have the diagnosis of obstructive sleep apnea. She told me that she had been on Xarelto for DVT in the past for about a year and it sounds as though it was discontinued because she completed the expected course of therapy. She does not recall ever having had any past cardiac tests such as the past echocardiogram or cardiac catheterization. She recalls that the emergency room department visit in [place] at which time she was given the clinical diagnosis of congestive heart failure was about a month ago. Exam: Heart sounds are distant due to body habitus, lower extremity edema partially improved. Neuro, somnolent Impression: 57-year-old female with obesity hypoventilation syndrome having presented with volume overload, acute kidney injury, hyperkalemia, and hypercapnic respiratory failure. Echocardiographic findings consistent with cor pulmonale physiology of unknown chronicity with dilated right ventricular chamber size and severe right ventricular systolic dysfunction. The left ventricle chamber size is small by comparison with hyperdynamic LVEF. EKG reveals diffuse inferior and lateral ST segment changes consistent with ischemia again today however troponins have been negative and she has no doreen angina. Plan: Continue unfractionated heparin for possible underlying pulmonary embolism versus chronic thromboembolic pulmonary hypertension, as well as myocardial ischemia. Nephrology input is noted and appreciated given diuretic dosing and treatment of hyperkalemia. Agree with furosemide 80 mg. Continue BiPAP on an as-needed basis. -Patient reassessed at 1:50 PM out of bed in chair in the ICU, stable for transfer back to telemetry with BiPAP as needed and with sleep Laboratory Results Last 24 Hours Test 10/30/17 12:23 10/30/17 12:54 10/30/17 16:31 10/30/17 17:49 Potassium Level 5.8 mmol/L 5.7 mmol/L Arterial Blood pH 7.18 Arterial Blood Partial Pressure CO2 77 mmHg Arterial Blood Partial Pressure O2 71 mm/Hg Arterial Blood HCO3 28 mmol/L Arterial Blood Oxygen Saturation 93.0 % Arterial Blood Base Excess -2.4 mEq/L Arterial Blood Gas Delivery BI-PAP Henri Test POS Bedside Glucose 212 mg/dl White Blood Count 7.84 K/uL Red Blood Count 4.73 M/uL Hemoglobin 14.3 g/dL Hematocrit 46.4 % Mean Corpuscular Volume 98.1 fL Mean Corpuscular Hemoglobin 30.2 pg Mean Corpuscular Hemoglobin Concent 30.8 g/dl Platelet Count 241 K/uL Mean Platelet Volume 10.0 fL Neutrophils (%) (Auto) 88.2 % Lymphocytes (%) (Auto) 8.2 % Monocytes (%) (Auto) 2.7 % Eosinophils (%) (Auto) 0.1 % Basophils (%) (Auto) 0.0 % Neutrophils # (Auto) 6.92 K/uL Lymphocytes # (Auto) 0.64 K/uL Monocytes # (Auto) 0.21 K/uL Eosinophils # (Auto) 0.01 K/uL Basophils # (Auto) 0.00 K/uL RDW Standard Deviation 59.3 fL RDW Coefficient of Variation 16.6 % Immature Granulocyte % (Auto) 0.8 % Immature Granulocyte # (Auto) 0.06 K/uL Prothrombin Time 11.8 SECONDS Prothromb Time International Ratio 1.1 Activated Partial Thromboplast Time 24.9 SECONDS Partial Thromboplastin Ratio 1.0 Sodium Level 135 mmol/L Carbon Dioxide Level 27 mmol/L Anion Gap 5.0 mmol/L Blood Urea Nitrogen 80 mg/dl Creatinine 1.52 mg/dl Est Creatinine Clear Calc Drug Dose 67.2 ml/min Estimated GFR () 44.0 Estimated GFR (Non- 37.9 BUN/Creatinine Ratio 52.6 Random Glucose 224 mg/dl Calcium Level 9.0 mg/dl Troponin I < 0.015 ng/ml Test 10/30/17 18:05 10/30/17 19:56 10/30/17 19:57 10/30/17 20:36 Blood Gas Sample Site L Radial Bedside Blood Gas pH (LAB) 7.28 Bedside Blood Gas pCO2 (LAB) 62 mmHg Bedside Blood Gas pO2 (LAB) 62 mmHg Bedside Blood Gas HCO3 (LAB) 29 meq/L Bedside Blood Gas Total CO2 31 mEq/l Bedside Blood Gas Base Excess (LAB) 2.0 meq/L Bedside Blood Gas O2 Saturation 89.0 % Henri Test Pass Oxygen Delivery Device BIPAP Bedside FiO2 30 % Blood Gas IPAP 18 Procalcitonin 0.17 ng/ml Lactic Acid Level 0.9 mmol/L Total Bilirubin 0.6 mg/dl Direct Bilirubin 0.2 mg/dl Aspartate Amino Transf (AST/SGOT) 25 U/L Alanine Aminotransferase (ALT/SGPT) 38 U/L Alkaline Phosphatase 78 U/L Ammonia 25.2 umol/L Total Protein 8.0 gm/dl Albumin 3.1 gm/dl Bedside Glucose 233 mg/dl Test 10/31/17 00:43 10/31/17 03:30 10/31/17 04:03 10/31/17 07:44 Activated Partial Thromboplast Time 85.7 SECONDS 70.0 SECONDS Partial Thromboplastin Ratio 3.3 2.7 Urine Color YELLOW Urine Appearance CLOUDY Urine pH 5.0 Urine Specific [place] 1.018 Urine Protein NEG Urine Glucose (UA) NEG Urine Ketones NEG Urine Occult Blood 3+ Urine Nitrite NEG Urine Bilirubin NEG Urine Urobilinogen NEG Urine Leukocyte Esterase TRACE Urine WBC (Auto) 1-5 /hpf Urine RBC (Auto) >30 /hpf Urine Hyaline Casts (Auto) >30 /lpf Urine Epithelial Cells (Auto) 5-10 /lpf Urine Bacteria (Auto) NEG Urine Pathogenic Casts /lpf White Blood Count 10.63 K/uL Red Blood Count 4.63 M/uL Hemoglobin 13.9 g/dL Hematocrit 45.1 % Mean Corpuscular Volume 97.4 fL Mean Corpuscular Hemoglobin 30.0 pg Mean Corpuscular Hemoglobin Concent 30.8 g/dl Platelet Count 239 K/uL Mean Platelet Volume 9.8 fL Neutrophils (%) (Auto) 79.4 % Lymphocytes (%) (Auto) 12.5 % Monocytes (%) (Auto) 7.4 % Eosinophils (%) (Auto) 0.1 % Basophils (%) (Auto) 0.1 % Neutrophils # (Auto) 8.44 K/uL Lymphocytes # (Auto) 1.33 K/uL Monocytes # (Auto) 0.79 K/uL Eosinophils # (Auto) 0.01 K/uL Basophils # (Auto) 0.01 K/uL RDW Standard Deviation 58.3 fL RDW Coefficient of Variation 16.7 % Immature Granulocyte % (Auto) 0.5 % Immature Granulocyte # (Auto) 0.05 K/uL Sodium Level 136 mmol/L Potassium Level 5.3 mmol/L Chloride Level 102 mmol/L Carbon Dioxide Level 28 mmol/L Anion Gap 6.0 mmol/L Blood Urea Nitrogen 80 mg/dl Creatinine 1.54 mg/dl Est Creatinine Clear Calc Drug Dose 66.3 ml/min Estimated GFR () 43.3 Estimated GFR (Non- 37.3 BUN/Creatinine Ratio 52.2 Random Glucose 165 mg/dl Calcium Level 8.7 mg/dl Magnesium Level 2.0 mg/dl Troponin I 0.016 ng/ml Bedside Glucose 125 mg/dl Test 10/31/17 07:51 10/31/17 11:14 Activated Partial Thromboplast Time 67.5 SECONDS Partial Thromboplastin Ratio 2.6 Bedside Glucose 105 mg/dl
[2017-10-31] MEDS ORDERED: FUROSEMIDE INJ 80 MG in SYRINGE 0 ML IV ONE (14:00)
--- NOTE | 2017-10-31 15:06 | PROGRESS NOTE ---
DATE: 10/31/2017 NEPHROLOGY NOTE SUBJECTIVE: Overnight, patient did good. She had 4.25 liters of urine yesterday and with that she feels better breathing mane. She still has lot of edema. She is more interactive and actually able to talk today. OBJECTIVE: VITAL SIGNS: Blood pressure 118/62, 95% on 2-liter nasal cannula, pulse rate 71 per minute, temperature 36.5. HEENT: Mucous membrane is moist. NECK: Supple and short and obese. Cannot assess JVD. CHEST: Decreased breath sound, basal crackles. CARDIOVASCULAR: Regular rate and rhythm. Cannot really hear heart sound well. No murmur heard. ABDOMEN: Soft, nontender, morbidly obese. Abdominal wall edema. EXTREMITIES: 3+ edema with chronic venous stasis changes as well as skin edema extending all the way to the hip and abdominal wall. LABORATORY TESTS: Hemoglobin 13.9, WBC count 10.63, sodium 136, potassium 5.3, BUN 80, creatinine 1.54, BNP 7696. ASSESSMENT AND PLAN: A 57-year-old female with symptomatic congestive heart failure, both right-sided as well as left-sided together with diastolic congestive heart failure. She also has severe pulmonary hypertension related most likely with obstructive sleep apnea. Almost certainly she has some underlying chronic kidney disease related with multiple medical problems. 1. Acute versus chronic renal failure. We do not have any baseline to compare with, but most certainly she has some underlying chronic kidney disease. Creatinine today is slightly better than yesterday. BUN is high as expected given her underlying problem. She still has significant fluid overload/congestive heart failure and need to be diuresed. She has gained about 70 pounds in the last 2 months, so we have a long way to go before we get her to euvolemic status. I will continue with the metolazone 5 mg daily and Lasix 80 mg iv twice daily. She may need higher dose of Lasix than this. We should aim for urine output of at least 3.5 liters to 4 liters every day to make any headway with her weight loss. MTDD
--- NOTE | 2017-10-31 15:26 | ECHOCARDIOGRAM REPORT ---
*NOTICE TO RECEIVING [employer] This information is strictly Confidential and protected under [place] law. [place] law prohibits you from making any further disclosure of this information unless further disclosure is expressly permitted by the written consent of the person to whom it pertains or is authorized by law. A general authorization for the release of medical or other information is not sufficient for this purpose. Hospital accepts no responsibility if the information is made available to any other person, INCLUDING THE PATIENT. Interpretation Summary * Name: BRODERICK SNOWDEN Study Date: 10/30/2017 09:17 AM BP: 96/55 mmHg * Patient Location: [id number].2E\[id number]\E208\S\1 HR: 87 * : 1960 (M/d/yyyy) Gender: Female Height: 67 in * Age: 57 yrs Ethnicity: [place] Weight: 372 lb * Ordering Physician: Elvin De Los Santos * Referring Physician: Self, Referred * Performed By: Virginia Flower RCS * * Reason For Study: CHF * BSA: 2.6 m2 * -- Conclusions -- * The study was technically limited but adequate for the referral indication. * There is moderate concentric left ventricular hypertrophy. * The right ventricle is severely dilated. * Severe diffuse right ventricular hypokinesis is present. * The left ventricular chamber size is small by comparison. * Flattened septum is consistent with RV pressure/volume overload. * The LV wall motion is otherwise normal. * The left ventricular ejection Fraction = >70 %. * There is mild to moderate tricuspid regurgitation. * Severe pulmonary hypertension is present, the calculated pulmonary artery systolic pressure is in the range of 70-80 mmHg. * The right atrium is moderately dilated. Procedure Details * A complete two-dimensional transthoracic echocardiogram was performed (2D, M-mode, Doppler and color flow Doppler). * The study was technically difficult. Left Ventricle * The left ventricular cavity is small. * There is moderate concentric left ventricular hypertrophy. * Left ventricular systolic function is normal. * Ejection Fraction = >70 %. * Flattened septum is consistent with RV pressure/volume overload. * The LV wall motion is otherwise normal. Right Ventricle * The right ventricle is severely dilated. * Severe diffuse right ventricular hypokinesis is present. Atria * The left atrial size is normal. * The right atrium is moderately dilated. * There is no evidence of atrial septal defect, but resolution does not allow assessment for a patent foramen ovale. Mitral Valve * The mitral valve is normal. * There is no mitral valve stenosis. * Significant mitral regurgitation is absent. Tricuspid Valve * The tricuspid valve is normal. * There is no tricuspid stenosis. * There is mild to moderate tricuspid regurgitation. * Severe pulmonary hypertension is present, the calculated pulmonary artery systolic pressure is in the range of 70-80 mmHg. Aortic Valve * The aortic valve is trileaflet. * Aortic stenosis is absent. * There is no significant aortic regurgitation. Pulmonic Valve * The pulmonary valve is not well seen, but the Doppler examination is normal without significant regurgitation or stenosis. Great Vessels * The aortic root and proximal ascending aorta are normal sized. Pericardium/Pleural * There is no pericardial effusion. Great Vessels * Inferior vena cava is dilated, however collapses 50% with inspiration consistent with an intermediate right atrial pressure of 8 mmHg. MMode 2D Measurements and Calculations IVSd 1.6 cm IVSs 1.9 cm LVIDd 4.1 cm LVIDs 2.8 cm LVPWd 1.5 cm LVPWs 1.8 cm IVS/LVPW 1.1 FS 32.5 % EDV(Teich) 74.4 ml ESV(Teich) 28.8 ml EF(Teich) 61.2 % EDV(cubed) 69.1 ml ESV(cubed) 21.3 ml EF(cubed) 69.2 % % IVS thick 15.1 % % LVPW thick 20.3 % LV mass(C)d 253.9 grams LV mass(C)dI 96.5 grams/m\S\2 LV mass(C)s 202.6 grams LV mass(C)sI 77.0 grams/m\S\2 SV(Teich) 45.5 ml SI(Teich) 17.3 ml/m\S\2 SV(cubed) 47.8 ml SI(cubed) 18.2 ml/m\S\2 Ao root diam 3.1 cm Ao root area 7.3 cm\S\2 LA dimension 4.1 cm LA/Ao 1.3 LVOT diam 2.0 cm LVOT area 3.1 cm\S\2 Doppler Measurements and Calculations LV V1 max PG 6.4 mmHg LV V1 max 125.7 cm/sec TR max neri 426.4 cm/sec
[2017-10-31] MEDS: METOLAZONE 5 MG TAB PO SCH (16:26)
--- NOTE | 2017-10-31 20:27 | Progress Note ---
Medicine Progress Note Date & Time of Visit: Oct 31, 2017 at 20:27.
--- NOTE | 2017-10-31 23:16 | Progress Note ---
Medicine Progress Note Date & Time of Visit: Oct 31, 2017 at 10:00 . Subjective CC: Follow-up visit for respiratory failure and other problems. HPI: Much better today. More alert. Wearing NC this morning. Ate breakfast. No fever. Nonproductive cough. No dyspnea at rest. ROS: General- no fever, no chills Resp- as noted above in HPI Cardiac- no chest pain, no edema GI- no nausea, no vomiting, no diarrhea - Priest cath . Objective Last 8 Hrs Date Time Temp Pulse Resp B/P (MAP) Pulse Ox O2 Delivery O2 Flow Rate FiO2 10/31/17 09:02 71 13 123/73 (90) 93 Nasal Cannula 5.0 10/31/17 08:01 36.4 76 20 158/84 (108) 96 Nasal Cannula 5.0 10/31/17 08:00 Nasal Cannula 5.0 10/31/17 07:45 77 18 Mask 5.0 93 10/31/17 07:03 72 17 130/71 (90) 94 Nasal Cannula 5.0 10/31/17 06:02 86 18 101/84 (90) 93 BiPAP 30 10/31/17 05:02 36.4 72 22 133/60 (84) 92 BiPAP 30 10/31/17 04:01 73 18 123/62 (82) 93 BiPAP 30 10/31/17 03:01 71 20 114/56 (75) 91 BiPAP 30 Physical Exam: General- lying in bed; no acute distress Lungs- bibasilar rales, diffuse mild wheezing Cardiovascular- distant heart sounds; RRR; no murmur or gallop appreciated; neck veins difficulty to assess; 1-2+ pretibial edema Abdomen- obese, + bowel sounds, soft, nontender Extremities- no calf tenderness Neuro- alert, oriented Skin- warm & dry . Laboratory Results: Last 24 Hours Test 10/30/17 10:45 10/30/17 11:22 10/30/17 12:23 10/30/17 12:54 Arterial Blood pH 7.16 7.18 Arterial Blood Partial Pressure CO2 78 mmHg 77 mmHg Arterial Blood Partial Pressure O2 106 mm/Hg 71 mm/Hg Arterial Blood HCO3 27 mmol/L 28 mmol/L Arterial Blood Oxygen Saturation 97.0 % 93.0 % Arterial Blood Base Excess -3.5 mEq/L -2.4 mEq/L Arterial Blood Gas Delivery BI-PAP BI-PAP Henri Test POS POS Sodium Level 136 mmol/L Potassium Level 5.6 mmol/L 5.8 mmol/L Chloride Level 104 mmol/L Carbon Dioxide Level 26 mmol/L Anion Gap 6.0 mmol/L Blood Urea Nitrogen 83 mg/dl Creatinine 1.75 mg/dl Est Creatinine Clear Calc Drug Dose 58.4 ml/min Estimated GFR () 37.1 Estimated GFR (Non- 32.0 BUN/Creatinine Ratio 47.3 Random Glucose 257 mg/dl Calcium Level 8.3 mg/dl Bedside Glucose 219 mg/dl Test 10/30/17 16:31 10/30/17 17:49 10/30/17 18:05 10/30/17 19:56 Bedside Glucose 212 mg/dl White Blood Count 7.84 K/uL Red Blood Count 4.73 M/uL Hemoglobin 14.3 g/dL Hematocrit 46.4 % Mean Corpuscular Volume 98.1 fL Mean Corpuscular Hemoglobin 30.2 pg Mean Corpuscular Hemoglobin Concent 30.8 g/dl Platelet Count 241 K/uL Mean Platelet Volume 10.0 fL Neutrophils (%) (Auto) 88.2 % Lymphocytes (%) (Auto) 8.2 % Monocytes (%) (Auto) 2.7 % Eosinophils (%) (Auto) 0.1 % Basophils (%) (Auto) 0.0 % Neutrophils # (Auto) 6.92 K/uL Lymphocytes # (Auto) 0.64 K/uL Monocytes # (Auto) 0.21 K/uL Eosinophils # (Auto) 0.01 K/uL Basophils # (Auto) 0.00 K/uL RDW Standard Deviation 59.3 fL RDW Coefficient of Variation 16.6 % Immature Granulocyte % (Auto) 0.8 % Immature Granulocyte # (Auto) 0.06 K/uL Prothrombin Time 11.8 SECONDS Prothromb Time International Ratio 1.1 Activated Partial Thromboplast Time 24.9 SECONDS Partial Thromboplastin Ratio 1.0 Sodium Level 135 mmol/L Potassium Level 5.7 mmol/L Carbon Dioxide Level 27 mmol/L Anion Gap 5.0 mmol/L Blood Urea Nitrogen 80 mg/dl Creatinine 1.52 mg/dl Est Creatinine Clear Calc Drug Dose 67.2 ml/min Estimated GFR () 44.0 Estimated GFR (Non- 37.9 BUN/Creatinine Ratio 52.6 Random Glucose 224 mg/dl Calcium Level 9.0 mg/dl Troponin I < 0.015 ng/ml Blood Gas Sample Site L Radial Bedside Blood Gas pH (LAB) 7.28 Bedside Blood Gas pCO2 (LAB) 62 mmHg Bedside Blood Gas pO2 (LAB) 62 mmHg Bedside Blood Gas HCO3 (LAB) 29 meq/L Bedside Blood Gas Total CO2 31 mEq/l Bedside Blood Gas Base Excess (LAB) 2.0 meq/L Bedside Blood Gas O2 Saturation 89.0 % Henri Test Pass Oxygen Delivery Device BIPAP Bedside FiO2 30 % Blood Gas IPAP 18 Procalcitonin 0.17 ng/ml Test 10/30/17 19:57 10/30/17 20:36 10/31/17 00:43 10/31/17 03:30 Lactic Acid Level 0.9 mmol/L Total Bilirubin 0.6 mg/dl Direct Bilirubin 0.2 mg/dl Aspartate Amino Transf (AST/SGOT) 25 U/L Alanine Aminotransferase (ALT/SGPT) 38 U/L Alkaline Phosphatase 78 U/L Ammonia 25.2 umol/L Total Protein 8.0 gm/dl Albumin 3.1 gm/dl Bedside Glucose 233 mg/dl Activated Partial Thromboplast Time 85.7 SECONDS Partial Thromboplastin Ratio 3.3 Urine Color YELLOW Urine Appearance CLOUDY Urine pH 5.0 Urine Specific [place] 1.018 Urine Protein NEG Urine Glucose (UA) NEG Urine Ketones NEG Urine Occult Blood 3+ Urine Nitrite NEG Urine Bilirubin NEG Urine Urobilinogen NEG Urine Leukocyte Esterase TRACE Urine WBC (Auto) 1-5 /hpf Urine RBC (Auto) >30 /hpf Urine Hyaline Casts (Auto) >30 /lpf Urine Epithelial Cells (Auto) 5-10 /lpf Urine Bacteria (Auto) NEG Urine Pathogenic Casts /lpf Test 10/31/17 04:03 10/31/17 07:44 10/31/17 07:51 White Blood Count 10.63 K/uL Red Blood Count 4.63 M/uL Hemoglobin 13.9 g/dL Hematocrit 45.1 % Mean Corpuscular Volume 97.4 fL Mean Corpuscular Hemoglobin 30.0 pg Mean Corpuscular Hemoglobin Concent 30.8 g/dl Platelet Count 239 K/uL Mean Platelet Volume 9.8 fL Neutrophils (%) (Auto) 79.4 % Lymphocytes (%) (Auto) 12.5 % Monocytes (%) (Auto) 7.4 % Eosinophils (%) (Auto) 0.1 % Basophils (%) (Auto) 0.1 % Neutrophils # (Auto) 8.44 K/uL Lymphocytes # (Auto) 1.33 K/uL Monocytes # (Auto) 0.79 K/uL Eosinophils # (Auto) 0.01 K/uL Basophils # (Auto) 0.01 K/uL RDW Standard Deviation 58.3 fL RDW Coefficient of Variation 16.7 % Immature Granulocyte % (Auto) 0.5 % Immature Granulocyte # (Auto) 0.05 K/uL Activated Partial Thromboplast Time 70.0 SECONDS 67.5 SECONDS Partial Thromboplastin Ratio 2.7 2.6 Sodium Level 136 mmol/L Potassium Level 5.3 mmol/L Chloride Level 102 mmol/L Carbon Dioxide Level 28 mmol/L Anion Gap 6.0 mmol/L Blood Urea Nitrogen 80 mg/dl Creatinine 1.54 mg/dl Est Creatinine Clear Calc Drug Dose 66.3 ml/min Estimated GFR () 43.3 Estimated GFR (Non- 37.3 BUN/Creatinine Ratio 52.2 Random Glucose 165 mg/dl Calcium Level 8.7 mg/dl Magnesium Level 2.0 mg/dl Troponin I 0.016 ng/ml Bedside Glucose 125 mg/dl Date/Time Source Procedure Growth Status 10/30/17 16:30 Nasal MRSA DNA Surveillance Screen - Final Specimen Negative for MRSA by DNA Probe Complete Assessment & Plan ACUTE ON CHRONIC RESPIRATORY FAILURE Acute hypoxic and hypercapnic respiratory failure. Details of baseline respiratory status not yet available, but suspect some degree of chronicity. Hypoxia could be secondary to CHF and COPD. Consider pulmonary embolism. Will not pursue CT of chest this time due to renal insufficiency. Venous duplex lower extremities negative for DVT. Hypercapnia probably secondary to combination of COPD, obesity hypoventilation syndrome. Specific problems addressed below. BiPAP initiated for ventilatory support. Respiratory status improved. SLEEP APNEA Previously diagnosed. Continue BiPAP when sleeping. Encourage use of CPAP at home. ACUTE COPD EXACERBATION Baseline PFT's not available. Continue steroids, bronchodilators, levofloxacin. PULMONARY HYPERTENSION Estimated PA pressure in 70's per echo. RV dilated with decreased systolic function. Pulmonary hypertension could be secondary to COPD, sleep apnea, obesity hypoventilation syndrome, or possible chronic thromboembolic disease. Patient does not wish to consider right-sided cath at this time. Optimize pulmonary issues as noted above. Empiric coagulation for possible chronic thromboembolic disease. CHF Presented with weight gain and shortness of breath. Chest x-ray demonstrated cardiomegaly and pulmonary vascular congestion. BNP was elevated. Preliminary echo report: grossly normal LV systolic function; dilated RV with decreased systolic function. Suspect acute on chronic left ventricular diastolic heart failure. Suspect acute on chronic right ventricular heart failure secondary to underlying pulmonary diseases. Old records from [place] requested for baseline data. Diurese as necessary. ABNORMAL EKG EKG demonstrated nonspecific changes suggesting ischemia. Cardiology consulted. Serum troponins negative x 3. No apparent left ventricular segmental wall motion abnormalities on echo. HYPERTENSION Lisinopril stopped due to hyperkalemia. Follow and titrate therapy. RENAL INSUFFICIENCY Serum creatinine at time of admission was 1.84. Baseline creatinine unknown. Nephrology consulted. Uses ibuprofen PRN-discontinued. Creatinine this morning = 1.54. HYPERKALEMIA Serum potassium 5.9 at time of admission and linette as high as 6.0. Hyperkalemia probably multifactorial- CESAR inhibitor, respiratory acidosis, renal insufficiency. CESAR inhibitor discontinued. K this morning = 5.3. Follow. DM TYPE 2 History of diabetes mellitus type 2, usually managed with metformin, glimepiride , sitagliptin. Random glucose in ED 99. Hemoglobin A1c 9.9. Hold oral agents during hospital stay. Lantus/NovoLog per protocol. FBS this morning = 125. MORBID OBESITY Wt 162 kg, BMI 55.9. AHA, diabetic diet. INCOMPLETE DATA Records from [place] requested. VTE PROPHYLAXIS / HISTORY OF DVT Initially received SQ heparin. Started on IV heparin for possible thromboembolic disease. At long-term risk for recurrent DVT. Transition to oral anticoagulation with warfarin. DISPOSITION Discharge disposition to be determined. . Current Inpatient Medications: Current Inpatient Medications Medications (Trade) Dose Ordered Sig/Sheryl Route Start Time Stop Time Status Last Admin Dose Admin Acetaminophen (Tylenol Tab) 650 mg Q4H PRN PO 10/29/17 23:15 11/28/17 23:14 Al Hydrox/Mg Hydrox/Simethicone (Maalox Max Susp) 15 ml Q4H PRN PO 10/29/17 23:15 11/28/17 23:14 Ondansetron HCl (Zofran Inj) 4 mg Q6H PRN IV 10/29/17 23:15 11/28/17 23:14 Nitroglycerin (Nitrostat Tab) 0.4 mg UD PRN SL 10/29/17 23:15 11/28/17 23:14 Polyethylene (Miralax Powder Packet) 17 gm DAILY PRN PO 10/29/17 23:15 11/28/17 23:14 Gabapentin (Neurontin Tab) 800 mg BID PRN PO 10/29/17 23:15 11/28/17 23:14 Future Hold Oxycodone/ Acetaminophen (Percocet 7.5-325MG Tab) 1 tab Q8 PRN PO 10/29/17 23:15 11/12/17 23:14 10/31/17 09:49 1 TAB Miscellaneous Information (Order Awaiting Action) 1 ea QS N/A 10/30/17 08:00 11/29/17 07:59 Miscellaneous Information (Order Awaiting Action) 1 ea QS N/A 10/30/17 08:00 11/29/17 07:59 Albuterol/ Ipratropium (Duoneb) 3 ml QIDR INH 10/30/17 08:00 11/29/17 07:59 10/31/17 07:44 3 ML Prednisone (PredniSONE TAB) 40 mg DAILY PO 10/30/17 09:00 11/29/17 08:59 10/31/17 07:47 40 MG Levofloxacin 750 mg/Prmx 150 ml @ 100 mls/hr Q24H IV 10/30/17 02:00 11/03/17 23:59 10/31/17 02:19 100 MLS/HR Insulin Aspart (novoLOG ASPART) SLIDING SCALE G... ACHS SC 10/30/17 07:00 11/29/17 06:59 10/31/17 07:50 5 UNITS Hydralazine HCl (Apresoline Tab) 10 mg Q6 PRN PO 10/29/17 23:15 11/28/17 23:14 10/30/17 08:08 10 MG Glucose (Glucose 40% Gel) 15-30 GRAMS 15 GRAMS... UD PRN PO 10/29/17 23:45 11/28/17 23:44 Glucose (Glucose Chew Tab) 4-8 Tablets 4 Tabl... UD PRN PO 10/29/17 23:45 11/28/17 23:44 Dextrose (Dextrose 50% 50ML Syringe) 25-50ML 25ML FOR ... UD PRN IV 10/29/17 23:45 11/28/17 23:44 Glucagon (Glucagon Inj) 1 mg UD PRN IM 10/29/17 23:45 11/28/17 23:44 Carbohydrates (Carbohydrates For Hypoglycemia) 15-30 GRAMS 15 grams if BSG 54-69... UD PRN PO 10/29/17 23:45 11/28/17 23:44 Levofloxacin (Consult) 1 ea UD PRN N/A 10/30/17 01:15 11/29/17 01:14 Nystatin (Mycostatin Oint) 1 appln BID EXT 10/30/17 09:00 11/29/17 08:59 10/31/17 07:47 1 APPLN Heparin Sodium/ Dextrose 500 ml @ 33 mls/hr [id number] IV 10/30/17 18:45 11/29/17 18:44 10/31/17 07:53 33 MLS/HR Miscellaneous Information (Consult Glycemic Management Pharmacy) 1 ea UD PRN N/A 10/31/17 08:58 11/30/17 08:57
[2017-11-01] VITALS (11 sets, daily range): BP systolic 104–178; BP diastolic 63–111; PULSE 68–98; TEMP 36.3–36.9; O2SAT 88–98
[2017-11-01] MEDS: HEPARIN 25,000 UNIT/500ML D5W 500 ML IV SCH ×2 (00:27→16:47)
[2017-11-01 06:10] LABS: BASO % 0.1 %; BASO ABS # 0.01 K/uL (0-0.2); EOS % 0.3 %; EOS ABS # 0.03 K/uL (0-0.5); HEMATOCRIT 44.2 % (37-47); HEMOGLOBIN 13.9 g/dL (12.0-16.0); IG# 0.03 K/uL (0.00-0.02); LYMPH % 19.1 %; LYMPH ABS # 2.05 K/uL (1.2-3.4); MEAN CELL VOLUME 94.8 fL (80-100); MEAN CORPUSCULAR HEMOGLOBIN 29.8 pg (25-34); MEAN CORPUSCULAR HGB CONC 31.4 g/dl (32-36); MONO % 7.2 %; MONO ABS # 0.77 K/uL (0.11-0.59); NEUT ABS # 7.84 K/uL (1.4-6.5); PLATELET COUNT 231 K/uL (130-400); RED CELL DISTRIBUTION WIDTH CV 16.4 % (11.5-14.5); RED CELL DISTRIBUTION WIDTH SD 56.4 fL (36.4-46.3); WHITE BLOOD COUNT 10.73 K/uL (4.8-10.8)
[2017-11-01 06:48] LABS: INR 1.1 (0.9-1.1)
[2017-11-01 06:51] LABS: PTT PATIENT 66.3 SECONDS (21.0-31.0)
[2017-11-01 06:57] LABS: CREATININE 1.21 mg/dl (0.60-1.20)
[2017-11-01] MEDS: ALBUT/IPRATROP 3MG/0.5MG NEB 3 ML VIAL INH SCH ×4 (06:58→18:55)
[2017-11-01] MEDS ORDERED: INSULIN HUMAN NPH SC SCH (07:30)
[2017-11-01 07:51] LABS: POTASSIUM 4.7 mmol/L (3.5-5.1)
[2017-11-01] MEDS: INSULIN ASPART 100 UNITS/ML 3 ML PEN SC SCH ×4 (08:06→20:35)
[2017-11-01] MEDS: FUROSEMIDE INJ 80 MG in SYRINGE 0 ML IV SCH ×2 (08:11→14:04)
[2017-11-01] MEDS: METOLAZONE 5 MG TAB PO SCH (08:12)
[2017-11-01] MEDS: OXYCODONE/ACETAMINOPHEN 7.5-325 TAB PO PRN ×2 (08:13→23:16)
[2017-11-01] MEDS ORDERED: WARFARIN SOD 5 MG TAB PO ONE (09:00)
--- NOTE | 2017-11-01 09:57 | Pharmacy Progress Note ---
Pharmacy Glycemic Short Note 2 Date of Service Nov 01, 2017. OUTPATIENT ANTIDIABETIC REGIMEN: * Metformin 850 mg po TID * Glimepiride 4 mg po BID * Sitagliptin 100 mg po daily * A1c = 9.9 % on 10/30/17 Test 10/31/17 11:14 10/31/17 15:55 10/31/17 20:29 11/01/17 05:20 Bedside Glucose 105 mg/dl (70-90) 274 mg/dl (70-90) 242 mg/dl (70-90) Random Glucose 127 mg/dl (70-99) Test 11/01/17 07:25 Bedside Glucose 119 mg/dl (70-90) ASSESSMENT: 11/01/17 * Ms. Motley received 40 units of insulin yesterday * Fasting BSG WNL but postprandial BSGs are elevated * She remains on prednisone 40 mg daily. Will transition to NPH insulin only to mimic the PK of the once daily prednisone. Typically 0.4 units/kg is given for prednisone >=40 mg, which would be 64 units. Will start with 55 units since she received 40 units of total insulin yesterday and BSGs were still elevated. Will continue correctional insulin in addition to this in case the NPH is not enough. 10/31/17 * 57 yo F with acute on chronic respiratory and heart failures currently in ICU * Patient's HbA1c is not well controlled on 3 oral agents at home - would benefit from initiation of insulin as outpatient * Inpatient BSG's not well controlled (all >200 mg/dL yesterday) - likely 2nd steroid-induced hyperglycemia and lower doses of insulin administered (for patient's weight) * AM fasting BSG in range this AM despite lower dose of Lantus yesterday (10 units administered) - patient would benefit from heavier basal load during day to help with post-prandial elevations, but decreased doses overnight to help prevent overnight/AM hypoglycemia as steroid effects dissipate. Will therefore switch from Lantus to NPH * OK to tighten Novolog parameters as all BSG's elevated yesterday despite NPO status - anticipate steroid effects to be more pronounced now that diet is resumed PLAN FOR INPATIENT GLYCEMIC CONTROL: * Continue to hold outpatient oral diabetes medications * Basal/prandial insulin * NPH 55 units (0.34 units/kg) qAM w/ prednisone dose * Bolus insulin * NovoLog per scale ACHS or Q6hrs while NPO * Goal Range: Low 120 mg/dL - High 150 mg/dL * Correction Factor: 25 mg/dL/unit PLAN FOR DISCHARGE: * A1c elevated at 9.9%. Patient agreeable to adding once daily insulin to regimen. * Would recommend: * Lantus (or Basaglar) 30 units qHS * D/C glimepiride * Continue metformin and sitagliptin
--- NOTE | 2017-11-01 10:19 | Cardiology Follow-Up ---
Subjective General Date of Service: Nov 01, 2017. Chief Complaint: resp failure; right heart failure Pt evaluation today including: conversation w/ patient, physical exam, chart review, lab review, review of inpatient medication list History of Present Illness Patient reports feeling well this morning. She is sitting up out of bed. Shortness of breath continues to improve. She reports improvement in her lower extremity edema and abdominal bloating. She is tolerating high-dose diuretics. No chest pain. No dizziness, syncope or near syncope. She reports she will be returning to [place] upon discharge. Allergies Coded Allergies: No Known Allergies (Unverified , 11/15/11) Social History Smoking Status: Current Every Day Smoker Hx Tobacco Use In Past Year?: Yes Hx Substance Use - Type And Am: No Problem List Medical Problems: (1) Acute kidney injury Status: Acute (2) CHF exacerbation Status: Acute (3) COPD exacerbation Status: Acute (4) Hypokalemia Status: Acute (5) Hypoxia Status: Acute (6) Respiratory acidosis Status: Acute Review of Systems Respiratory: + dyspnea on exertion, No cough, No wheezing, No dyspnea at rest, No hemoptysis Cardiac: + edema, No chest pain, No orthopnea, No PND, No palpitations Physical Exam Vital Signs Last Vital Signs Documentation Date Time Temp Pulse Resp B/P (MAP) Pulse Ox O2 Delivery O2 Flow Rate FiO2 11/01/17 08:00 Room Air 11/01/17 07:51 36.5 75 18 139/84 (102) 96 3.0 10/31/17 23:45 30 Physical Exam Constitutional: General Apperance: obese Level of Distress: NAD, acutely ill, chronically ill Psychiatric: Mental Status: active & alert Orientation: to time, to place, to person Eyes: Pupils: PERRLA Neck: supple Lungs: Auscultation: expiratory wheezing, wet rales/crackles Cardiovascular: Heart Auscultation: RRR, no murmurs Abdomen: Bowel Sounds: normal Inspection & Palpation: soft, non-distended Extremities: edema Assessment and Plan Assessment and Plan 1. Acute respiratory failure with hypoxia secondary to probable acute diastolic vs acute right heart failure, [place] 2. Unable to r/o PE - started on IV heparin. History of DVT. May benefit from lifelong anticoagulation due to immobility 3 HEMALATHA with history of non compliance with CPAP 3. COPD wiht ongoing tobacco abuse 4. Patient reports history of DVT, no longer on anticoagulation therapy. 5. Hypertension 6. JANNY with hyperkalemia.-Improved 7. Abnormal EKG, negative cardiac enzymes x4, normal LV function at rest, with severe right ventricular chamber size and right ventricular hypokinesis PLAN: Continue IV furosemide with metolazone with ongoing aggressive diuresis. Potassium and creatinine continue to improve Lisinopril on hold. Continue IV heparin to Coumadin which is preferred anticoagulant in this setting with JANNY/CKD and obesity. NOAC's are not advised in patient's with BMI >40 in this setting due to unpredictable pharmacokinetics and possible lack of efficacy. CPAP/BIPAP therapy and supplemental O2. She may benefit from future ischemic work up as outpatient after respiratory status and volume status improves. She will need to f/u closely with PCP, cardiology, sleep med, and pulmonary department upon discharge when she returns to [place]. Case discussed with Dr. Jasso. Will follow. CARDIOLOGY ATTENDING ADDENDUM: The patient was seen and personally examined. Agree with Gemma Mullins PA-C's findings and plans as documented above. Patient reassessed by the undersigned, she is in room 229-1 . She is out of bed in the chair, is conversant, and comfortable. She notes that she still feels that she is swollen her abdomen, but she feels that she has lost a considerable amount of fluid. Per her intake and output summary, she had 4.2 years of fluid output on 10/30/17 with a fluid balance of -2 L on that day, and yesterday, she had 3.6 L of urine output, and her fluid balance was -1.5 L. She has had 4.2 L of urine output thus far today. Her creatinine has trended toward improvement, with creatinine level of 1.21 mg/dL today as compared to 1.84 on admission. Potassium has now normalized. Exam: Lungs clear Extremities mild residual edema Impression: As noted above Etiology of her right ventricular dysfunction is likely due to obesity hypoventilation syndrome with previously untreated severe obstructive sleep apnea, although acute or chronic pulmonary embolism or even chronic thromboembolic pulmonary hypertension is a possibility. Her clinical presentation is less suggestive of an underlying primary pulmonary hypertension or pulmonary hypertension due to connective tissue disease Plan: Continue aggressive diuretic therapy, furosemide 80 mg IV twice daily. Continue heparin. This time will proceed with empiric anticoagulation. Given the patient's obesity and history of acute kidney injury, warfarin is felt to be the anticoagulant of choice for her. She has had a dramatic clinical improvement. Although her EKG does show ST segment depression she has no doreen anginal symptoms. At this time, I do not think ischemic workup is clinically necessary we should work on optimizing her volume status and anticoagulation instead. I do not think her presenting symptoms were suggestive of coronary insufficiency. Laboratory Results Last 24 Hours Test 10/31/17 11:14 10/31/17 15:55 10/31/17 20:29 11/01/17 05:20 Bedside Glucose 105 mg/dl 274 mg/dl 242 mg/dl White Blood Count 10.73 K/uL Red Blood Count 4.66 M/uL Hemoglobin 13.9 g/dL Hematocrit 44.2 % Mean Corpuscular Volume 94.8 fL Mean Corpuscular Hemoglobin 29.8 pg Mean Corpuscular Hemoglobin Concent 31.4 g/dl Platelet Count 231 K/uL Mean Platelet Volume 10.0 fL Neutrophils (%) (Auto) 73.0 % Lymphocytes (%) (Auto) 19.1 % Monocytes (%) (Auto) 7.2 % Eosinophils (%) (Auto) 0.3 % Basophils (%) (Auto) 0.1 % Neutrophils # (Auto) 7.84 K/uL Lymphocytes # (Auto) 2.05 K/uL Monocytes # (Auto) 0.77 K/uL Eosinophils # (Auto) 0.03 K/uL Basophils # (Auto) 0.01 K/uL RDW Standard Deviation 56.4 fL RDW Coefficient of Variation 16.4 % Immature Granulocyte % (Auto) 0.3 % Immature Granulocyte # (Auto) 0.03 K/uL Prothrombin Time 11.8 SECONDS Prothromb Time International Ratio 1.1 Activated Partial Thromboplast Time 66.3 SECONDS Partial Thromboplastin Ratio 2.6 Sodium Level 134 mmol/L Potassium Level mmol/L Chloride Level 99 mmol/L Carbon Dioxide Level 29 mmol/L Anion Gap 6.0 mmol/L Blood Urea Nitrogen 65 mg/dl Creatinine 1.21 mg/dl Est Creatinine Clear Calc Drug Dose 83.1 ml/min Estimated GFR () 57.9 Estimated GFR (Non- 50.0 BUN/Creatinine Ratio 53.6 Random Glucose 127 mg/dl Calcium Level 9.0 mg/dl Magnesium Level mg/dl Test 11/01/17 07:02 11/01/17 07:25 Potassium Level 4.7 mmol/L Magnesium Level 1.8 mg/dl Bedside Glucose 119 mg/dl
--- NOTE | 2017-11-01 11:02 | PROGRESS NOTE ---
DATE: 11/01/2017 SUBJECTIVE: Overnight she is doing good. She is urinating a lot. Not all of the urine output is actually captured on the input output charting, but she is absolutely confident that she is making a lot of urine and with that her breathing is better. Her lower extremity edema as well as abdominal distention is getting better. OBJECTIVE: VITAL SIGNS: Blood pressure 139/84, 96% on 3-liter nasal cannula, pulse rate 75 per minute, temperature 36.5. HEENT: Mucous membrane is moist. NECK: Short and obese. Cannot assess JVD. CHEST: Decreased breath sounds. Unable to hear any breath sounds secondary to morbid obesity. CARDIOVASCULAR: S1 and S2, regular. ABDOMEN: Soft, nontender, very obese. EXTREMITIES: Shows bilateral lower extremity edema, but it is definitely less than 2 days ago. LABORATORY TESTS: From this morning shows sodium 134, potassium 4.7, BUN 65, creatinine 1.21, hemoglobin is up to 13.9, WBC count 10.73. ASSESSMENT AND PLAN: A 57-year-old female who presented with symptomatic congestive heart failure including right-sided heart failure, diastolic heart failure, chronic kidney disease stage III. 1. Acute kidney injury. Renal function has actually improved with ongoing diuresis, which is actually a very good sign. She did have some chronic kidney disease prior to this hospitalization, although we do not have the exact lab result, but at this time creatinine is already down to 1.21 and improving. We will continue with the current dose of IV Lasix as it seems to be working. Continue Lasix 80 mg IV twice daily and metolazone 5 mg daily. If the serum sodium drops too low, we can stop the metolazone, but will continue with IV Lasix. She gained about 70 pounds in the last 2 months, so we still have good way to go before we get her to her previous weight. [facility]
[2017-11-01] MEDS: NYSTATIN OINT 15 GM TUBE EXT SCH ×2 (11:40→20:31)
[2017-11-01] MEDS: LEVOFLOXACIN 750 MG TAB PO SCH (12:17)
--- NOTE | 2017-11-01 21:47 | Progress Note ---
Medicine Progress Note Date & Time of Visit: Nov 01, 2017 at 18:05 . Subjective CC: Follow-up visit for respiratory failure and other problems. HPI: Better. No fever. Nonproductive cough. Dyspnea with exertion, but not at rest. ROS: General- no fever, no chills Resp- as noted above in HPI Cardiac- no chest pain, no edema GI- no nausea, no vomiting, no diarrhea - Priest cath removed; voiding without difficulty . Objective Last 8 Hrs Date Time Temp Pulse Resp B/P (MAP) Pulse Ox O2 Delivery O2 Flow Rate FiO2 11/01/17 19:26 36.7 71 18 147/88 (107) 98 Room Air 11/01/17 15:39 36.9 78 18 104/69 (81) 96 Room Air 11/01/17 15:24 78 16 88 Nasal Cannula 3.0 Physical Exam: General- sitting in chair; no acute distress Lungs- few bibasilar rales, diffuse mild wheezing Cardiovascular- distant heart sounds; RRR; no murmur or gallop appreciated; neck veins difficulty to assess; 1-2+ pretibial edema Abdomen- obese, + bowel sounds, soft, nontender Extremities- no calf tenderness Neuro- alert, oriented Skin- warm & dry . Laboratory Results: Last 24 Hours Test 11/01/17 05:20 11/01/17 07:02 11/01/17 07:25 11/01/17 11:10 White Blood Count 10.73 K/uL Red Blood Count 4.66 M/uL Hemoglobin 13.9 g/dL Hematocrit 44.2 % Mean Corpuscular Volume 94.8 fL Mean Corpuscular Hemoglobin 29.8 pg Mean Corpuscular Hemoglobin Concent 31.4 g/dl Platelet Count 231 K/uL Mean Platelet Volume 10.0 fL Neutrophils (%) (Auto) 73.0 % Lymphocytes (%) (Auto) 19.1 % Monocytes (%) (Auto) 7.2 % Eosinophils (%) (Auto) 0.3 % Basophils (%) (Auto) 0.1 % Neutrophils # (Auto) 7.84 K/uL Lymphocytes # (Auto) 2.05 K/uL Monocytes # (Auto) 0.77 K/uL Eosinophils # (Auto) 0.03 K/uL Basophils # (Auto) 0.01 K/uL RDW Standard Deviation 56.4 fL RDW Coefficient of Variation 16.4 % Immature Granulocyte % (Auto) 0.3 % Immature Granulocyte # (Auto) 0.03 K/uL Prothrombin Time 11.8 SECONDS Prothromb Time International Ratio 1.1 Activated Partial Thromboplast Time 66.3 SECONDS Partial Thromboplastin Ratio 2.6 Sodium Level 134 mmol/L Potassium Level mmol/L 4.7 mmol/L Chloride Level 99 mmol/L Carbon Dioxide Level 29 mmol/L Anion Gap 6.0 mmol/L Blood Urea Nitrogen 65 mg/dl Creatinine 1.21 mg/dl Est Creatinine Clear Calc Drug Dose 83.1 ml/min Estimated GFR () 57.9 Estimated GFR (Non- 50.0 BUN/Creatinine Ratio 53.6 Random Glucose 127 mg/dl Calcium Level 9.0 mg/dl Magnesium Level mg/dl 1.8 mg/dl Bedside Glucose 119 mg/dl 171 mg/dl Test 11/01/17 16:42 11/01/17 20:11 11/01/17 20:12 Bedside Glucose 299 mg/dl 391 mg/dl 368 mg/dl Assessment & Plan ACUTE ON CHRONIC RESPIRATORY FAILURE Acute hypoxic and hypercapnic respiratory failure. Suspect some degree of chronicity. Hypoxia could have been secondary to CHF and COPD. Considered pulmonary embolism. Did not pursue CT of chest due to renal insufficiency. Venous duplex lower extremities negative for DVT. Hypercapnia probably secondary to combination of COPD, obesity hypoventilation syndrome. Specific problems addressed below. BiPAP utilized for ventilatory support. Respiratory status improved. SLEEP APNEA Previously diagnosed. Continue BiPAP when sleeping. Encourage use of CPAP at home. ACUTE COPD EXACERBATION Baseline PFT's not available. Continue steroids, bronchodilators, levofloxacin. PULMONARY HYPERTENSION Estimated PA pressure in 70's per echo. RV dilated with decreased systolic function. Pulmonary hypertension could be secondary to COPD, sleep apnea, obesity hypoventilation syndrome, or possible chronic thromboembolic disease. Patient does not wish to consider right-sided cath at this time. Optimize pulmonary issues as noted above. Empiric coagulation for possible chronic thromboembolic disease. CHF Presented with weight gain and shortness of breath. Chest x-ray demonstrated cardiomegaly and pulmonary vascular congestion. BNP was elevated. Echo demonstrated grossly normal LV systolic function; dilated RV with decreased systolic function. Suspect acute on chronic left ventricular diastolic heart failure. Suspect acute on chronic right ventricular heart failure secondary to underlying pulmonary diseases. Old records from [place] requested for baseline data. Continue diuretics. ABNORMAL EKG EKG demonstrated nonspecific changes suggesting ischemia. Cardiology consulted. Serum troponins negative x 3. No apparent left ventricular segmental wall motion abnormalities on echo. HYPERTENSION Lisinopril stopped due to hyperkalemia. Follow and titrate therapy. RENAL INSUFFICIENCY Serum creatinine at time of admission was 1.84. Baseline creatinine unknown. Nephrology consulted. Uses ibuprofen PRN-discontinued. Creatinine this morning = 1.21. HYPERKALEMIA Serum potassium 5.9 at time of admission and linette as high as 6.0. Hyperkalemia probably multifactorial- CESAR inhibitor, respiratory acidosis, renal insufficiency. CESAR inhibitor discontinued. K this morning = 4.7. Follow. DM TYPE 2 History of diabetes mellitus type 2, usually managed with metformin, glimepiride , sitagliptin. Random glucose in ED 99. Hemoglobin A1c 9.9. Hold oral agents during hospital stay. Pharmacy consulted for glycemic management. Novolin N/NovoLog per protocol. FBS this morning = 119. MORBID OBESITY Wt 162 kg, BMI 55.9. AHA, diabetic diet. GENERAL DEBILITATION PT / OT. INCOMPLETE DATA Records from [place] requested. VTE PROPHYLAXIS / HISTORY OF DVT Initially received SQ heparin. Started on IV heparin for possible thromboembolic disease. At long-term risk for recurrent DVT. Transition from IV heparin to SQ enoxaparin. DOAC's probably not appropriate because of weight and renal insufficiency; warfarin preferred oral anticoagulant. Patient prefers not to take warfarin. DISPOSITION Discharge disposition to be determined. . Current Inpatient Medications: Current Inpatient Medications Medications (Trade) Dose Ordered Sig/Sheryl Route Start Time Stop Time Status Last Admin Dose Admin Acetaminophen (Tylenol Tab) 650 mg Q4H PRN PO 10/29/17 23:15 11/28/17 23:14 Al Hydrox/Mg Hydrox/Simethicone (Maalox Max Susp) 15 ml Q4H PRN PO 10/29/17 23:15 11/28/17 23:14 Ondansetron HCl (Zofran Inj) 4 mg Q6H PRN IV 10/29/17 23:15 11/28/17 23:14 Nitroglycerin (Nitrostat Tab) 0.4 mg UD PRN SL 10/29/17 23:15 11/28/17 23:14 Polyethylene (Miralax Powder Packet) 17 gm DAILY PRN PO 10/29/17 23:15 11/28/17 23:14 Gabapentin (Neurontin Tab) 800 mg BID PRN PO 10/29/17 23:15 11/28/17 23:14 Future Hold Oxycodone/ Acetaminophen (Percocet 7.5-325MG Tab) 1 tab Q8 PRN PO 10/29/17 23:15 11/12/17 23:14 11/01/17 08:13 1 TAB Miscellaneous Information (Order Awaiting Action) 1 ea QS N/A 10/30/17 08:00 11/29/17 07:59 Miscellaneous Information (Order Awaiting Action) 1 ea QS N/A 10/30/17 08:00 11/29/17 07:59 Albuterol/ Ipratropium (Duoneb) 3 ml QIDR INH 10/30/17 08:00 11/29/17 07:59 11/01/17 15:24 3 ML Prednisone (PredniSONE TAB) 40 mg DAILY PO 10/30/17 09:00 11/29/17 08:59 11/01/17 09:28 40 MG Insulin Aspart (novoLOG ASPART) SLIDING SCALE G... ACHS SC 10/30/17 07:00 11/29/17 06:59 11/01/17 20:35 9 UNITS Hydralazine HCl (Apresoline Tab) 10 mg Q6 PRN PO 10/29/17 23:15 11/28/17 23:14 10/30/17 08:08 10 MG Glucose (Glucose 40% Gel) 15-30 GRAMS 15 GRAMS... UD PRN PO 10/29/17 23:45 11/28/17 23:44 Glucose (Glucose Chew Tab) 4-8 Tablets 4 Tabl... UD PRN PO 10/29/17 23:45 11/28/17 23:44 Dextrose (Dextrose 50% 50ML Syringe) 25-50ML 25ML FOR ... UD PRN IV 10/29/17 23:45 11/28/17 23:44 Glucagon (Glucagon Inj) 1 mg UD PRN IM 10/29/17 23:45 11/28/17 23:44 Carbohydrates (Carbohydrates For Hypoglycemia) 15-30 GRAMS 15 grams if BSG 54-69... UD PRN PO 10/29/17 23:45 11/28/17 23:44 Levofloxacin (Consult) 1 ea UD PRN N/A 10/30/17 01:15 11/29/17 01:14 Nystatin (Mycostatin Oint) 1 appln BID EXT 10/30/17 09:00 11/29/17 08:59 11/01/17 11:40 1 APPLN Heparin Sodium/ Dextrose 500 ml @ 33 mls/hr [id number] IV 10/30/17 18:45 11/29/17 18:44 11/01/17 16:47 33 MLS/HR Miscellaneous Information (Consult Glycemic Management Pharmacy) 1 ea UD PRN N/A 10/31/17 08:58 11/30/17 08:57 Levofloxacin (Levaquin Tab) 750 mg DAILY@11 PO 11/01/17 11:00 11/03/17 11:01 11/01/17 12:17 750 MG Metolazone (Zaroxolyn Tab) 5 mg QAM PO 10/31/17 15:00 11/30/17 14:59 11/01/17 08:12 5 MG Furosemide 80 mg/ Syringe 8 ml @ 4 mls/min [id number] IV 11/01/17 07:00 12/01/17 06:59 11/01/17 14:04 4 MLS/MIN Insulin Human NPH (novoLIN-N NPH) 55 units QDB SC 11/01/17 07:30 12/01/17 07:29 11/01/17 08:11 55 UNITS Insulin Aspart (novoLOG ASPART) SLIDING SCALE G... 0000,0400 [place] 11/02/17 00:00 11/02/17 04:01
[2017-11-02] VITALS (13 sets, daily range): BP systolic 113–147; BP diastolic 72–82; PULSE 73–92; TEMP 36.3–36.6; O2SAT 91–98; Ht 170.2 cm; Wt 148.3 kg
[2017-11-02] MEDS: INSULIN ASPART 100 UNITS/ML 3 ML PEN SC SCH ×6 (00:12→20:58)
[2017-11-02] MEDS ORDERED: LEVALBUTEROL/IPRATROPIUM NEB INH PRN (00:30)
[2017-11-02 00:52] LABS: HEMATOCRIT 45.3 % (37-47); HEMOGLOBIN 14.5 g/dL (12.0-16.0); IG# 0.04 K/uL (0.00-0.02); LYMPH ABS # 1.28 K/uL (1.2-3.4); MEAN CELL VOLUME 93.6 fL (80-100); MEAN PLATELET VOLUME 9.8 fL (7.4-10.4); MONO % 7.4 %; MONO ABS # 0.68 K/uL (0.11-0.59); NEUT % 78.2 %; NEUT ABS # 7.17 K/uL (1.4-6.5); PLATELET COUNT 240 K/uL (130-400); RED CELL DISTRIBUTION WIDTH SD 54.9 fL (36.4-46.3); WHITE BLOOD COUNT 9.17 K/uL (4.8-10.8)
[2017-11-02 01:09] LABS: CALCIUM 8.9 mg/dl (8.5-10.1); CREATININE 1.39 mg/dl (0.60-1.20)
[2017-11-02 01:12] LABS: PTT PATIENT 61.3 SECONDS (21.0-31.0)
[2017-11-02] MEDS ORDERED: MAGNESIUM SULFATE 1GM / D5W 100 ML IV STA (01:29)
[2017-11-02] MEDS: IPRATROPIUM BROMIDE NEB SOLN 0.02% 2.5 ML VIAL INH SCH ×4 (01:45→19:06)
[2017-11-02] MEDS ORDERED: IPRATROPIUM BROMIDE NEB SOLN 0.02% 2.5 ML VIAL INH PRN (01:45)
[2017-11-02] MEDS: LEVALBUTEROL 1.25MG/0.5ML NEB INH SCH ×4 (01:45→19:06)
[2017-11-02] MEDS ORDERED: LEVALBUTEROL 1.25MG/0.5ML NEB INH PRN (01:45)
[2017-11-02] MEDS ORDERED: LEVALBUTEROL/IPRATROPIUM NEB INH SCH (03:00)
[2017-11-02] MEDS: HEPARIN 25,000 UNIT/500ML D5W 500 ML IV SCH (08:45)
[2017-11-02] MEDS: METOLAZONE 5 MG TAB PO SCH (08:47)
[2017-11-02] MEDS: NYSTATIN OINT 15 GM TUBE EXT SCH ×2 (08:48→20:53)
[2017-11-02] MEDS: FUROSEMIDE INJ 80 MG in SYRINGE 0 ML IV SCH ×2 (08:48→14:09)
[2017-11-02] MEDS: INSULIN HUMAN NPH SC SCH (08:50)
[2017-11-02] MEDS: ENOXAPARIN 150 MG/1ML SYR SQ SCH (08:51)
[2017-11-02] MEDS ORDERED: HEPARIN DRIP~STOP ORDER ONE (09:00)
--- NOTE | 2017-11-02 09:52 | Pharmacy Progress Note ---
Pharmacy Glycemic Short Note 2 Date of Service Nov 02, 2017. OUTPATIENT ANTIDIABETIC REGIMEN: * Metformin 850 mg po TID * Glimepiride 4 mg po BID * Sitagliptin 100 mg po daily * A1c = 9.9 % on 10/30/17 Test 11/01/17 16:42 11/01/17 20:11 11/01/17 20:12 11/02/17 00:02 Bedside Glucose 299 mg/dl (70-90) 391 mg/dl (70-90) 368 mg/dl (70-90) 258 mg/dl (70-90) Test 11/02/17 00:38 11/02/17 04:29 11/02/17 07:24 11/02/17 11:01 Random Glucose 226 mg/dl (70-99) Bedside Glucose 152 mg/dl (70-90) 110 mg/dl (70-90) 179 mg/dl (70-90) ASSESSMENT: 11/02/17 * Ms. Motley received 71 units of insulin yesterday * Remains on prednisone 40 mg daily for COPD exacerbation * Fasting BSG WNL but postprandial BSGs were extremely elevated last evening. Reports from evening pharmacist and RN notes indicate patient was eating between meals. * Will plan to increase NPH dose today but do not want to overcompensate for additional po intake that may not happen on a daily basis. Instead, will tighten CF to provide additional correction if necessary and provide a very loose CR to provide some additional coverage if po intake is increased. 11/01/17 * Ms. Motley received 40 units of insulin yesterday * Fasting BSG WNL but postprandial BSGs are elevated * She remains on prednisone 40 mg daily. Will transition to NPH insulin only to mimic the PK of the once daily prednisone. Typically 0.4 units/kg is given for prednisone >=40 mg, which would be 64 units. Will start with 55 units since she received 40 units of total insulin yesterday and BSGs were still elevated. Will continue correctional insulin in addition to this in case the NPH is not enough. 10/31/17 * 57 yo F with acute on chronic respiratory and heart failures currently in ICU * Patient's HbA1c is not well controlled on 3 oral agents at home - would benefit from initiation of insulin as outpatient * Inpatient BSG's not well controlled (all >200 mg/dL yesterday) - likely 2nd steroid-induced hyperglycemia and lower doses of insulin administered (for patient's weight) * AM fasting BSG in range this AM despite lower dose of Lantus yesterday (10 units administered) - patient would benefit from heavier basal load during day to help with post-prandial elevations, but decreased doses overnight to help prevent overnight/AM hypoglycemia as steroid effects dissipate. Will therefore switch from Lantus to NPH * OK to tighten Novolog parameters as all BSG's elevated yesterday despite NPO status - anticipate steroid effects to be more pronounced now that diet is resumed PLAN FOR INPATIENT GLYCEMIC CONTROL: * Continue to hold outpatient oral diabetes medications * Basal/prandial insulin - increase * NPH 70 units (0.45 units/kg) qAM w/ prednisone dose * Bolus insulin - tighten, add back loose CR * NovoLog per scale ACHS or Q6hrs while NPO * Goal Range: Low 120 mg/dL - High 150 mg/dL * Correction Factor: 15 mg/dL/unit * Carb ratio: 1 unit per 15 gm CHO PLAN FOR DISCHARGE: * A1c elevated at 9.9%. Patient agreeable to adding once daily insulin to regimen. * Would recommend: * Lantus (or Basaglar) 30 units qHS * Increase by 2 units every 3 days if AM BSG above 150 mg/dL * D/C glimepiride * Continue metformin and sitagliptin
--- NOTE | 2017-11-02 10:41 | Cardiology Follow-Up ---
Subjective General Date of Service: Nov 02, 2017. Chief Complaint: resp failure; right heart failure Pt evaluation today including: conversation w/ patient, physical exam, chart review, lab review, review of studies, review of inpatient medication list History of Present Illness Patient feeling ok at rest. Ambulating in hallways earlier and reported worsening dyspnea. Requiring supplemental O2 with exertion. Denies chest pain. Edema and abdominal bloating improved. Allergies Coded Allergies: No Known Allergies (Unverified , 11/15/11) Social History Smoking Status: Current Every Day Smoker Hx Tobacco Use In Past Year?: Yes Hx Substance Use - Type And Am: No Problem List Medical Problems: (1) Acute kidney injury Status: Acute (2) CHF exacerbation Status: Acute (3) COPD exacerbation Status: Acute (4) Hypokalemia Status: Acute (5) Hypoxia Status: Acute (6) Respiratory acidosis Status: Acute Review of Systems Respiratory: + cough, + dyspnea on exertion, No sputum, No wheezing, No dyspnea at rest, No hemoptysis Cardiac: + edema, No chest pain, No palpitations Physical Exam Vital Signs Last Vital Signs Documentation Date Time Temp Pulse Resp B/P (MAP) Pulse Ox O2 Delivery O2 Flow Rate FiO2 11/02/17 08:00 Room Air 11/02/17 07:01 36.6 77 18 139/82 (101) 92 3.0 11/02/17 01:37 30 Physical Exam Constitutional: General Apperance: obese Level of Distress: NAD, acutely ill, chronically ill Psychiatric: Mental Status: active & alert Orientation: to time, to place, to person Eyes: Pupils: PERRLA Neck: supple Lungs: Auscultation: deminished air movement, expiratory wheezing Cardiovascular: Heart Auscultation: RRR, no murmurs Abdomen: Bowel Sounds: normal Inspection & Palpation: soft, non-distended Extremities: edema (2+ pitting edema) Assessment and Plan Assessment and Plan 1. Acute respiratory failure with hypoxia secondary to probable acute diastolic vs acute right heart failure, giovannaian 2. Unable to r/o PE - started on IV heparin, transition to chcf anticoagulation. History of DVT. May benefit from lifelong anticoagulation due to immobility 3 HEMALATHA with history of non compliance with CPAP 3. COPD wiht ongoing tobacco abuse 4. Patient reports history of DVT, no longer on anticoagulation therapy. 5. Hypertension 6. JANNY with hyperkalemia. 7. Abnormal EKG, negative cardiac enzymes x2, normal LV function at rest. PLAN: Continue IV furosemide with metolazone with ongoing aggressive diuresis. Potassium and creatinine stable Lisinopril on hold. Recommend Coumadin for anticoagulations. NOAC's are not advised in patient's with BMI >40 in this setting due to unpredictable pharmacokinetics and possible lack of efficacy. CPAP/BIPAP therapy and supplemental O2. May need 2Step prior to discharge. She may benefit from future ischemic work up as outpatient after respiratory status and volume status improves. She will need to f/u closely with PCP, cardiology, sleep med, and pulmonary department upon discharge when she returns to [facility]. Case discussed with Dr. Jasso. Will follow. CARDIOLOGY ATTENDING ADDENDUM: The patient was seen and personally examined. Agree with Gemma Mullins PA-C's findings and plans as documented above. Laboratory Results Last 24 Hours Test 11/01/17 11:10 11/01/17 16:42 11/01/17 20:11 11/01/17 20:12 Bedside Glucose 171 mg/dl 299 mg/dl 391 mg/dl 368 mg/dl Test 11/02/17 00:02 11/02/17 00:38 11/02/17 04:29 11/02/17 07:24 Bedside Glucose 258 mg/dl 152 mg/dl 110 mg/dl White Blood Count 9.17 K/uL Red Blood Count 4.84 M/uL Hemoglobin 14.5 g/dL Hematocrit 45.3 % Mean Corpuscular Volume 93.6 fL Mean Corpuscular Hemoglobin 30.0 pg Mean Corpuscular Hemoglobin Concent 32.0 g/dl Platelet Count 240 K/uL Mean Platelet Volume 9.8 fL Neutrophils (%) (Auto) 78.2 % Lymphocytes (%) (Auto) 14.0 % Monocytes (%) (Auto) 7.4 % Eosinophils (%) (Auto) 0.0 % Basophils (%) (Auto) 0.0 % Neutrophils # (Auto) 7.17 K/uL Lymphocytes # (Auto) 1.28 K/uL Monocytes # (Auto) 0.68 K/uL Eosinophils # (Auto) 0.00 K/uL Basophils # (Auto) 0.00 K/uL RDW Standard Deviation 54.9 fL RDW Coefficient of Variation 16.0 % Immature Granulocyte % (Auto) 0.4 % Immature Granulocyte # (Auto) 0.04 K/uL Activated Partial Thromboplast Time 61.3 SECONDS Partial Thromboplastin Ratio 2.4 Sodium Level 133 mmol/L Potassium Level 5.0 mmol/L Chloride Level 92 mmol/L Carbon Dioxide Level 36 mmol/L Anion Gap 5.0 mmol/L Blood Urea Nitrogen 56 mg/dl Creatinine 1.39 mg/dl Est Creatinine Clear Calc Drug Dose 72.3 ml/min Estimated GFR () 49.0 Estimated GFR (Non- 42.3 BUN/Creatinine Ratio 40.4 Random Glucose 226 mg/dl Calcium Level 8.9 mg/dl Magnesium Level 1.7 mg/dl
--- NOTE | 2017-11-02 11:06 | PROGRESS NOTE ---
DATE: 11/02/2017 NEPHROLOGY NOTE SUBJECTIVE: Overnight, she is doing better. She is urinating a lot and very happy with that. Urine output yesterday was more than 7 liters. Lower extremity edema as well as abdominal distention and shortness of breath is getting better. OBJECTIVE: VITAL SIGNS: Blood pressure 139/82, 92% on room air, pulse rate 77 per minute, respiratory rate 18 per minute, temperature 36.6. HEENT: Mucous membranes moist. NECK: Supple. Cannot assess JVD because of obesity. CHEST: Decreased breath sounds. Unable to hear any breath sounds secondary to morbid obesity. CARDIOVASCULAR: S1 and S2, regular. ABDOMEN: Soft, nontender, very obese. EXTREMITIES: Shows bilateral lower extremity edema, but it is definitely less than admission. LABORATORY TESTS: From today was reviewed in detail. Platelet count 240, hemoglobin 14.5. Sodium 133, potassium 5.0, BUN 56, creatinine 1.39. ASSESSMENT AND PLAN: A 57-year-old female who presented with symptomatic congestive heart failure including right-sided heart failure, diastolic heart failure, chronic kidney disease stage III. 1. Acute kidney injury. Renal function has improved slightly despite ongoing diuresis, which is actually very good sign. She did have some chronic kidney disease prior to this hospitalization, although we do not have the exact lab results showing the baseline creatinine. At this time, her BUN and creatinine are relatively stable. I will continue with the current dose of IV Lasix as it seems to be working. Continue Lasix 80 IV twice daily and metolazone 5 daily. If the sodium drops too low meaning less than 130, we can stop the metolazone at that time. She gained 70 pounds in the last two months, so we still have good way to go before we get her to her previous weight. MTDD
[2017-11-02] MEDS: LEVOFLOXACIN 750 MG TAB PO SCH (11:16)
[2017-11-02] MEDS: OXYCODONE/ACETAMINOPHEN 7.5-325 TAB PO PRN ×2 (11:19→23:35)
--- NOTE | 2017-11-02 23:37 | Progress Note ---
Medicine Progress Note Date & Time of Visit: Nov 02, 2017 at 13:10 . Subjective CC: Follow-up visit for respiratory failure and other problems. HPI: No fever. Nonproductive cough. Dyspnea with exertion. Run of narrow-complex tachycardia last night. No chest pain. Persistent edema. ROS: General- no fever, no chills Resp- as noted above in HPI Cardiac- as noted above in HPI GI- no nausea, no vomiting, no diarrhea - Priest cath removed; voiding without difficulty . Objective Last 8 Hrs Date Time Temp Pulse Resp B/P (MAP) Pulse Ox O2 Delivery O2 Flow Rate FiO2 11/02/17 23:08 36.4 81 17 120/72 (88) 94 Room Air 11/02/17 19:08 78 16 93 Nasal Cannula 2.0 11/02/17 19:04 36.5 78 18 129/75 (93) 93 Nasal Cannula 11/02/17 16:00 92 Nasal Cannula 2.0 30 BiPAP Physical Exam: General- sitting in chair; no acute distress Lungs- few bibasilar rales, diffuse mild wheezing Cardiovascular- distant heart sounds; RRR; no murmur or gallop appreciated; neck veins difficulty to assess; 2+ pretibial edema Abdomen- obese, + bowel sounds, soft, nontender Extremities- no calf tenderness Neuro- alert, oriented Skin- warm & dry . Laboratory Results: Last 24 Hours Test 11/02/17 00:02 11/02/17 00:38 11/02/17 04:29 11/02/17 07:24 Bedside Glucose 258 mg/dl 152 mg/dl 110 mg/dl White Blood Count 9.17 K/uL Red Blood Count 4.84 M/uL Hemoglobin 14.5 g/dL Hematocrit 45.3 % Mean Corpuscular Volume 93.6 fL Mean Corpuscular Hemoglobin 30.0 pg Mean Corpuscular Hemoglobin Concent 32.0 g/dl Platelet Count 240 K/uL Mean Platelet Volume 9.8 fL Neutrophils (%) (Auto) 78.2 % Lymphocytes (%) (Auto) 14.0 % Monocytes (%) (Auto) 7.4 % Eosinophils (%) (Auto) 0.0 % Basophils (%) (Auto) 0.0 % Neutrophils # (Auto) 7.17 K/uL Lymphocytes # (Auto) 1.28 K/uL Monocytes # (Auto) 0.68 K/uL Eosinophils # (Auto) 0.00 K/uL Basophils # (Auto) 0.00 K/uL RDW Standard Deviation 54.9 fL RDW Coefficient of Variation 16.0 % Immature Granulocyte % (Auto) 0.4 % Immature Granulocyte # (Auto) 0.04 K/uL Activated Partial Thromboplast Time 61.3 SECONDS Partial Thromboplastin Ratio 2.4 Sodium Level 133 mmol/L Potassium Level 5.0 mmol/L Chloride Level 92 mmol/L Carbon Dioxide Level 36 mmol/L Anion Gap 5.0 mmol/L Blood Urea Nitrogen 56 mg/dl Creatinine 1.39 mg/dl Est Creatinine Clear Calc Drug Dose 72.3 ml/min Estimated GFR () 49.0 Estimated GFR (Non- 42.3 BUN/Creatinine Ratio 40.4 Random Glucose 226 mg/dl Calcium Level 8.9 mg/dl Magnesium Level 1.7 mg/dl Test 11/02/17 11:01 11/02/17 16:15 11/02/17 20:26 Bedside Glucose 179 mg/dl 375 mg/dl 279 mg/dl Assessment & Plan ACUTE ON CHRONIC RESPIRATORY FAILURE Acute hypoxic and hypercapnic respiratory failure. Suspect some degree of chronicity. Hypoxia could have been secondary to CHF and COPD. Considered pulmonary embolism. Did not pursue CT of chest due to renal insufficiency. Venous duplex lower extremities negative for DVT. Hypercapnia probably secondary to combination of COPD, obesity hypoventilation syndrome. Specific problems addressed below. BiPAP utilized for ventilatory support. Respiratory status improved. SLEEP APNEA Previously diagnosed. Continue BiPAP when sleeping. Encourage use of CPAP at home. ACUTE COPD EXACERBATION Baseline PFT's not available. Continue steroids, bronchodilators, levofloxacin. PULMONARY HYPERTENSION Estimated PA pressure in 70's per echo. RV dilated with decreased systolic function. Pulmonary hypertension could be secondary to COPD, sleep apnea, obesity hypoventilation syndrome, or possible chronic thromboembolic disease. Patient does not wish to consider right-sided cath at this time. Optimize pulmonary issues as noted above. Empiric coagulation for possible chronic thromboembolic disease. CHF Presented with weight gain and shortness of breath. Chest x-ray demonstrated cardiomegaly and pulmonary vascular congestion. BNP was elevated. Echo demonstrated grossly normal LV systolic function; dilated RV with decreased systolic function. Suspect acute on chronic left ventricular diastolic heart failure. Suspect acute on chronic right ventricular heart failure secondary to underlying pulmonary diseases. Old records from [place] requested for baseline data. Continue furosemide 80 mg IV BID. ABNORMAL EKG EKG demonstrated nonspecific changes suggesting ischemia. Cardiology consulted. Serum troponins negative x 3. No apparent left ventricular segmental wall motion abnormalities on echo. HYPERTENSION Lisinopril stopped due to hyperkalemia. Follow and titrate therapy. RENAL INSUFFICIENCY Serum creatinine at time of admission was 1.84. Baseline creatinine unknown. Nephrology consulted. Uses ibuprofen PRN-discontinued. Creatinine this morning = 1.39. HYPERKALEMIA Serum potassium 5.9 at time of admission and linette as high as 6.0. Hyperkalemia probably multifactorial- CESAR inhibitor, respiratory acidosis, renal insufficiency. CESAR inhibitor discontinued. K this morning = 5.0. Follow. DM TYPE 2 History of diabetes mellitus type 2, usually managed with metformin, glimepiride , sitagliptin. Random glucose in ED 99. Hemoglobin A1c 9.9. Hold oral agents during hospital stay. Pharmacy consulted for glycemic management. Novolin N/NovoLog per protocol. FBS this morning = 152. MORBID OBESITY Wt 162 kg, BMI 55.9. AHA, diabetic diet. GENERAL DEBILITATION PT / OT. INCOMPLETE DATA Records from [place] requested. VTE PROPHYLAXIS / HISTORY OF DVT Initially received SQ heparin. Started on IV heparin for possible thromboembolic disease. At long-term risk for recurrent DVT. Transition from IV heparin to SQ enoxaparin. DOAC's probably not appropriate because of weight and renal insufficiency; warfarin preferred oral anticoagulant. Patient prefers not to take warfarin. DISPOSITION Discharge disposition to be determined. . Current Inpatient Medications: Current Inpatient Medications Medications (Trade) Dose Ordered Sig/Sheryl Route Start Time Stop Time Status Last Admin Dose Admin Acetaminophen (Tylenol Tab) 650 mg Q4H PRN PO 10/29/17 23:15 11/28/17 23:14 Al Hydrox/Mg Hydrox/Simethicone (Maalox Max Susp) 15 ml Q4H PRN PO 10/29/17 23:15 11/28/17 23:14 Ondansetron HCl (Zofran Inj) 4 mg Q6H PRN IV 10/29/17 23:15 11/28/17 23:14 Nitroglycerin (Nitrostat Tab) 0.4 mg UD PRN SL 10/29/17 23:15 11/28/17 23:14 Polyethylene (Miralax Powder Packet) 17 gm DAILY PRN PO 10/29/17 23:15 11/28/17 23:14 Gabapentin (Neurontin Tab) 800 mg BID PRN PO 10/29/17 23:15 11/28/17 23:14 Future Hold Oxycodone/ Acetaminophen (Percocet 7.5-325MG Tab) 1 tab Q8 PRN PO 10/29/17 23:15 11/12/17 23:14 11/02/17 23:35 1 TAB Miscellaneous Information (Order Awaiting Action) 1 ea QS N/A 10/30/17 08:00 11/29/17 07:59 Prednisone (PredniSONE TAB) 40 mg DAILY PO 10/30/17 09:00 11/29/17 08:59 11/02/17 08:47 40 MG Insulin Aspart (novoLOG ASPART) SLIDING SCALE G... ACHS SC 10/30/17 07:00 11/29/17 06:59 11/02/17 20:58 12 UNITS Hydralazine HCl (Apresoline Tab) 10 mg Q6 PRN PO 10/29/17 23:15 11/28/17 23:14 10/30/17 08:08 10 MG Glucose (Glucose 40% Gel) 15-30 GRAMS 15 GRAMS... UD PRN PO 10/29/17 23:45 11/28/17 23:44 Glucose (Glucose Chew Tab) 4-8 Tablets 4 Tabl... UD PRN PO 10/29/17 23:45 11/28/17 23:44 Dextrose (Dextrose 50% 50ML Syringe) 25-50ML 25ML FOR ... UD PRN IV 10/29/17 23:45 11/28/17 23:44 Glucagon (Glucagon Inj) 1 mg UD PRN IM 10/29/17 23:45 11/28/17 23:44 Carbohydrates (Carbohydrates For Hypoglycemia) 15-30 GRAMS 15 grams if BSG 54-69... UD PRN PO 10/29/17 23:45 11/28/17 23:44 Levofloxacin (Consult) 1 ea UD PRN N/A 10/30/17 01:15 11/29/17 01:14 Nystatin (Mycostatin Oint) 1 appln BID EXT 10/30/17 09:00 11/29/17 08:59 11/02/17 20:53 1 APPLN Miscellaneous Information (Consult Glycemic Management Pharmacy) 1 ea UD PRN N/A 10/31/17 08:58 11/30/17 08:57 Levofloxacin (Levaquin Tab) 750 mg DAILY@11 PO 11/01/17 11:00 11/03/17 11:01 11/02/17 11:16 750 MG Metolazone (Zaroxolyn Tab) 5 mg QAM PO 10/31/17 15:00 11/30/17 14:59 11/02/17 08:47 5 MG Furosemide 80 mg/ Syringe 8 ml @ 4 mls/min [id number] IV 11/01/17 07:00 12/01/17 06:59 11/02/17 14:09 4 MLS/MIN Ipratropium [place] (Atrovent 0.02% 0.5MG/2.5ML Neb) 0.5 mg Q6R INH 11/02/17 03:00 12/02/17 02:59 11/02/17 19:06 0.5 MG Levalbuterol (Xopenex 1.25MG/ 0.5ML Neb) 1.25 mg Q6R INH 11/02/17 03:00 12/02/17 02:59 11/02/17 19:06 1.25 MG Ipratropium [place] (Atrovent 0.02% 0.5MG/2.5ML Neb) 0.5 mg Q4H PRN INH 11/02/17 01:45 12/02/17 01:44 Levalbuterol (Xopenex 1.25MG/ 0.5ML Neb) 1.25 mg Q4H PRN INH 11/02/17 01:45 12/02/17 01:44 Enoxaparin Sodium (Lovenox Inj) 150 mg DAILY@0900 SQ 11/02/17 09:00 12/02/17 08:59 11/02/17 08:51 150 MG Insulin Human NPH (novoLIN-N NPH) 70 units QDB SC 11/02/17 07:30 12/02/17 07:29 11/02/17 08:50 70 UNITS Salmeterol Xinafoate/ Fluticasone (Advair Hfa 230/ 21 Inh) 2 puff BID INH 11/03/17 09:00 12/03/17 08:59
[2017-11-03] VITALS (13 sets, daily range): BP systolic 127–146; BP diastolic 78–88; PULSE 77–100; TEMP 36.4–36.7; O2SAT 89–98
[2017-11-03] MEDS: IPRATROPIUM BROMIDE NEB SOLN 0.02% 2.5 ML VIAL INH SCH ×4 (02:11→18:55)
[2017-11-03] MEDS: LEVALBUTEROL 1.25MG/0.5ML NEB INH SCH ×4 (02:12→18:55)
[2017-11-03] MEDS: FUROSEMIDE INJ 80 MG in SYRINGE 0 ML IV SCH (07:45)
[2017-11-03] MEDS: NYSTATIN OINT 15 GM TUBE EXT SCH ×2 (07:45→20:47)
[2017-11-03] MEDS: HydrALAZINE 10 MG TAB PO PRN (07:46)
[2017-11-03] MEDS: ENOXAPARIN 150 MG/1ML SYR SQ SCH (07:46)
[2017-11-03] MEDS: METOLAZONE 5 MG TAB PO SCH (07:46)
[2017-11-03] MEDS: FLUTIC INH SCH ×2 (07:47→20:47)
[2017-11-03] MEDS: SALMET INH SCH ×2 (07:47→20:47)
[2017-11-03] MEDS: INSULIN ASPART 100 UNITS/ML 3 ML PEN SC SCH ×4 (07:55→21:20)
[2017-11-03] MEDS: INSULIN HUMAN NPH SC SCH (07:56)
[2017-11-03 08:20] LABS: CALCIUM 9.2 mg/dl (8.5-10.1); CREATININE 0.91 mg/dl (0.60-1.20); POTASSIUM 3.9 mmol/L (3.5-5.1)
[2017-11-03] MEDS: OXYCODONE/ACETAMINOPHEN 7.5-325 TAB PO PRN ×2 (10:54→23:01)
[2017-11-03] MEDS: LEVOFLOXACIN 750 MG TAB PO SCH (10:54)
--- NOTE | 2017-11-03 11:48 | Cardiology Follow-Up ---
Subjective General Date of Service: Nov 03, 2017. Chief Complaint: resp failure; right heart failure Pt evaluation today including: conversation w/ patient, physical exam, chart review, lab review, review of studies, review of inpatient medication list History of Present Illness Patient feeling much improved. SOB nearly at baseline. No chest pain. Cough improving. Edema improving. No dizziness. Allergies Coded Allergies: No Known Allergies (Unverified , 11/15/11) Social History Smoking Status: Current Every Day Smoker Hx Tobacco Use In Past Year?: Yes Hx Substance Use - Type And Am: No Problem List Medical Problems: (1) Acute kidney injury Status: Acute (2) CHF exacerbation Status: Acute (3) COPD exacerbation Status: Acute (4) Hypokalemia Status: Acute (5) Hypoxia Status: Acute (6) Respiratory acidosis Status: Acute Review of Systems Respiratory: + cough, + dyspnea on exertion, No sputum, No wheezing, No shortness of breath, No dyspnea at rest, No hemoptysis Cardiac: + edema, No chest pain, No orthopnea, No PND, No palpitations Physical Exam Vital Signs Last Vital Signs Documentation Date Time Temp Pulse Resp B/P (MAP) Pulse Ox O2 Delivery O2 Flow Rate FiO2 11/03/17 08:00 Nasal Cannula 2.0 BiPAP 11/03/17 06:56 36.7 77 17 127/78 (94) 95 11/02/17 16:00 30 Physical Exam Constitutional: General Apperance: obese Level of Distress: NAD, acutely ill, chronically ill Psychiatric: Mental Status: active & alert Orientation: to time, to place, to person Eyes: Pupils: PERRLA Neck: supple Lungs: Auscultation: no wheezing, no rales/crackles, deminished air movement Cardiovascular: Heart Auscultation: RRR, no murmurs Abdomen: Bowel Sounds: normal Inspection & Palpation: soft, non-distended Extremities: edema (2+ pitting edema) Assessment and Plan Assessment and Plan 1. Acute respiratory failure with hypoxia secondary to probable acute diastolic vs acute right heart failure, [place] 2. Unable to r/o PE - started on IV heparin, transition to correction anticoagulation. History of DVT. May benefit from lifelong anticoagulation due to immobility 3 HEMALATHA with history of non compliance with CPAP 3. COPD with ongoing tobacco abuse 4. Patient reports history of DVT, no longer on anticoagulation therapy. 5. Hypertension 6. JANNY with hyperkalemia improving, with presenting creatinine of 1.84 mg/dL on presentation to 0.91 mg/dL, presenting potassium of 6 mmol/L, 3.9 today, 2017 7. Abnormal EKG, negative cardiac enzymes x2, normal LV function at rest. PLAN: Bicarb trending up, sodium trending down Received AM dose of metolazone and furosemide. Hold additional metolazone. Hold PM dose of IV furosemide Transition to oral furosemide tomorrow 80 mg Resume low dose lisinopril on discharge with caution given hyperkalemia Recommend Coumadin for anticoagulations. NOAC's are not advised in patient's with BMI >40 in this setting due to unpredictable pharmacokinetics and possible lack of efficacy. CPAP/BIPAP therapy and supplemental O2. May need 2Step prior to discharge. She may benefit from future ischemic work up as outpatient after respiratory status and volume status improves. She will need to f/u closely with PCP, cardiology, sleep med, and pulmonary department upon discharge when she returns to [place]. Case discussed with Dr. Jasso. CARDIOLOGY ATTENDING ADDENDUM: The patient was seen and personally examined. Agree with Gemma Mullins PA-C's findings and plans as documented above and additions as noted below. Subjective: Patient continues to feel subjectively improved. Denies chest discomfort or shortness of breath. Telemetry reveals stable sinus rhythm without additional episodes of SVT. Exam: Edema improved Superficial ecchymosis noted on the anterior aspects of her forearms Impression: As noted above Plan: Discontinue IV furosemide and metolazone. Patient had been taking furosemide 40 mg p.o. twice daily prior to admission. Will transition to furosemide 80 mg daily starting tomorrow, although his kidney function is stable, would consider discharge on furosemide 80 mg p.o. twice daily. Avoid spironolactone given admission with hyperkalemia and acute renal failure. Patient has a long-standing history of obstructive sleep apnea diagnosed approximately 8 years ago, but she has not been tolerant of CPAP in the past. She needs follow-up with this regard when she returns to [place], would recommend repeat nocturnal polysomnography and initiation of CPAP. The patient has been started on empiric anticoagulation given findings of severe right ventricular chamber size enlargement and right ventricular hypokinesis, severe pulmonary hypertension with PA systolic pressures in the 70 mmHg range by echocardiogram, cor pulmonale physiology, with past history of remote DVT, and PE cannot be excluded this admission. The patient is currently on full anticoagulation dose Lovenox at 150 mg subcutaneously every 12 hours. Initial recommendation was for her to be discharged on Coumadin. The patient however apparently has declined this. She had been on Xarelto in the past. Been as discussed previously the pharmacokinetics of this medication are not well defined in patients with BMI over 40 and weight over 120 kg, and this patient's body mass index is closer to 51 with weight of 148 kg. In addition to the patient's elevated BMI and weight , she has had acute renal insufficiency. Ideally would recommend Coumadin. The patient declines, would consider Eliquis although I be worried that she may be underdosed given her weight with decreased anticoagulant effect. Guarding the patient's EKG. Her right bundle branch block is consistent with her perhaps chronic right ventricular dysfunction and obstructive sleep apnea hypoventilation syndrome. She did have diffuse ST segment depression during his hospital stay. No doreen angina. Serial troponin levels negative. Recommend repeat EKG tomorrow and that she is much improved respiratory status standpoint, volume standpoint, and electrolyte standpoint. Laboratory Results Last 24 Hours Test 11/02/17 16:15 11/02/17 20:26 11/03/17 07:08 11/03/17 07:15 Bedside Glucose 375 mg/dl 279 mg/dl 115 mg/dl Sodium Level 132 mmol/L Potassium Level 3.9 mmol/L Chloride Level 88 mmol/L Carbon Dioxide Level 41 mmol/L Anion Gap 4.0 mmol/L Blood Urea Nitrogen 35 mg/dl Creatinine 0.91 mg/dl Est Creatinine Clear Calc Drug Dose 105.1 ml/min Estimated GFR () 81.7 Estimated GFR (Non- 70.5 BUN/Creatinine Ratio 38.7 Random Glucose 113 mg/dl Calcium Level 9.2 mg/dl
--- NOTE | 2017-11-03 11:57 | Pharmacy Progress Note ---
Pharmacy Glycemic Short Note 2 Date of Service Nov 03, 2017. OUTPATIENT ANTIDIABETIC REGIMEN: * Metformin 850 mg po TID * Glimepiride 4 mg po BID * Sitagliptin 100 mg po daily * A1c = 9.9 % on 10/30/17 Item Value Date Time Bedside Glucose 258 mg/dl H 11/02/17 0002 Bedside Glucose 152 mg/dl H 11/02/17 0429 Bedside Glucose 110 mg/dl H 11/02/17 0724 Bedside Glucose 179 mg/dl H 11/02/17 1101 Bedside Glucose 375 mg/dl *H 11/02/17 1615 Bedside Glucose 279 mg/dl H 11/02/17 2026 Bedside Glucose 115 mg/dl H 11/03/17 0715 ASSESSMENT: * Pt is currently receiving weight based/prednisone dose based NPH insulin + Novolog for steroid induced hyperglycemia + baseline DM * NPH insulin is used to counteract the hyperglycemic effect of prednisone. The rationale for this approach is that the pharmacodynamics profile of NPH, with a peak effect of 4-8hrs and duration of action of 12-16hrs, mirrors the pharmacodynamics of prednisone. NPH should be dosed at the same time that prednisone is given * The dose of NPH given is dependent on the steroid dose given * For doses of prednisone 40mg/day or above NPH dose should be 0.4 units/kg * NPH dosing above is given in addition to patients basal insulin needs * Typically, patients will also need rapid-acting insulin with meals * Pre-dinner BSG significantly elevated at 375 mg/dl secondary to conservative CR ordered when NPH dose increased yesterday. CR tightened last evening when nursing called pharmacy to report critical hyperglycemia. * AM fasting BSG in goal range. No changes needed to NPH dosing. PLAN FOR INPATIENT GLYCEMIC CONTROL: * Continue to hold outpatient oral diabetes medications * Basal/prandial insulin - no change at this time * NPH 70 units (0.45 units/kg) qAM w/ prednisone dose * Will decrease dosing with each step down in steroid dosing * Bolus insulin - tighten * NovoLog per scale ACHS or Q6hrs while NPO * Goal Range: Low 120 mg/dL - High 150 mg/dL * Correction Factor: 15 mg/dL/unit * Carb ratio: 1 unit per 10 gm CHO PLAN FOR DISCHARGE: * A1c elevated at 9.9%. Patient agreeable to adding once daily insulin to regimen. * Would recommend: * Lantus (or Basaglar) vs NPH depending on insulin coverage. Recommend starting at 30 units qHS * Increase by 2 units every 3 days if AM BSG above 150 mg/dL * D/C glimepiride * Continue metformin and sitagliptin
[2017-11-03] MEDS: FUROSEMIDE 80 MG TAB PO SCH (17:23)
--- NOTE | 2017-11-03 21:40 | Progress Note ---
Medicine Progress Note Date & Time of Visit: Nov 03, 2017 at 15:00 . Subjective CC: Follow-up visit for respiratory failure and other problems. HPI: Cough improved. Dyspnea with exertion. No chest pain. Less edema. ROS: General- no fever, no chills Resp- as noted above in HPI Cardiac- as noted above in HPI GI- no nausea, no vomiting, no diarrhea - voiding without difficulty . Objective Last 8 Hrs Date Time Temp Pulse Resp B/P (MAP) Pulse Ox O2 Delivery O2 Flow Rate FiO2 11/03/17 19:57 36.5 100 19 136/87 (103) 90 Nasal Cannula 11/03/17 18:55 85 20 98 Nasal Cannula 3.0 11/03/17 16:04 36.5 85 21 132/83 (99) 91 Nasal Cannula 2.0 11/03/17 14:09 89 20 92 Nasal Cannula 3.0 Physical Exam: General- sitting in chair; no acute distress Lungs- diffuse mild wheezing Cardiovascular- distant heart sounds; RRR; no murmur or gallop appreciated; neck veins difficulty to assess; 2+ pretibial edema Abdomen- obese, + bowel sounds, soft, nontender Extremities- no calf tenderness Neuro- alert, oriented Skin- warm & dry . Laboratory Results: Last 24 Hours Test 11/03/17 07:08 11/03/17 07:15 11/03/17 11:23 11/03/17 13:51 Sodium Level 132 mmol/L Potassium Level 3.9 mmol/L Chloride Level 88 mmol/L Carbon Dioxide Level 41 mmol/L Anion Gap 4.0 mmol/L Blood Urea Nitrogen 35 mg/dl Creatinine 0.91 mg/dl Est Creatinine Clear Calc Drug Dose 105.1 ml/min Estimated GFR () 81.7 Estimated GFR (Non- 70.5 BUN/Creatinine Ratio 38.7 Random Glucose 113 mg/dl Calcium Level 9.2 mg/dl Bedside Glucose 115 mg/dl 221 mg/dl Arterial Blood pH 7.48 Arterial Blood Partial Pressure CO2 58 mmHg Arterial Blood Partial Pressure O2 63 mm/Hg Arterial Blood HCO3 43 mmol/L Arterial Blood Oxygen Saturation 93.0 % Arterial Blood Base Excess 15.7 mEq/L Arterial Blood Gas Delivery 3L Henri Test POS Test 11/03/17 16:55 11/03/17 21:02 Bedside Glucose 317 mg/dl 225 mg/dl Assessment & Plan ACUTE ON CHRONIC RESPIRATORY FAILURE Acute hypoxic and hypercapnic respiratory failure. Suspect some degree of chronicity. Hypoxia could have been secondary to CHF and COPD. Considered pulmonary embolism. Did not pursue CT of chest due to renal insufficiency. Venous duplex lower extremities negative for DVT. Hypercapnia probably secondary to combination of COPD, obesity hypoventilation syndrome. Specific problems addressed below. BiPAP utilized for ventilatory support. Respiratory status improved. SLEEP APNEA Previously diagnosed. Continue BiPAP when sleeping. Encourage use of CPAP at home. ACUTE COPD EXACERBATION Completed course of levofloxacin. Continue steroids, bronchodilators. PULMONARY HYPERTENSION Estimated PA pressure in 70's per echo. RV dilated with decreased systolic function. Pulmonary hypertension could be secondary to COPD, sleep apnea, obesity hypoventilation syndrome, or possible chronic thromboembolic disease. Patient does not wish to consider right-sided cath at this time. Optimize pulmonary issues as noted above. Empiric coagulation for possible chronic thromboembolic disease. CHF Presented with weight gain and shortness of breath. Chest x-ray demonstrated cardiomegaly and pulmonary vascular congestion. BNP was elevated. Echo demonstrated grossly normal LV systolic function; dilated RV with decreased systolic function. Suspect acute on chronic left ventricular diastolic heart failure. Suspect acute on chronic right ventricular heart failure secondary to underlying pulmonary diseases. Old records from [place] requested for baseline data. Received IV furosemide. Transition to oral furosemide. ABNORMAL EKG EKG demonstrated nonspecific changes suggesting ischemia. Cardiology consulted. Serum troponins negative x 3. No apparent left ventricular segmental wall motion abnormalities on echo. HYPERTENSION Lisinopril stopped due to hyperkalemia. Follow and titrate therapy. RENAL INSUFFICIENCY Serum creatinine at time of admission was 1.84. Baseline creatinine unknown. Nephrology consulted. Uses ibuprofen PRN-discontinued. Creatinine this morning = 0.91. HYPERKALEMIA Serum potassium 5.9 at time of admission and linette as high as 6.0. Hyperkalemia probably multifactorial- CESAR inhibitor, respiratory acidosis, renal insufficiency. CESAR inhibitor discontinued. K this morning = 3.9. Follow. DM TYPE 2 History of diabetes mellitus type 2, usually managed with metformin, glimepiride , sitagliptin. Random glucose in ED 99. Hemoglobin A1c 9.9. Hold oral agents during hospital stay. Pharmacy consulted for glycemic management. Novolin N/NovoLog per protocol. FBS this morning = 115. MORBID OBESITY Wt 162 kg, BMI 55.9. AHA, diabetic diet. GENERAL DEBILITATION PT / OT. INCOMPLETE DATA Records from [place] requested. VTE PROPHYLAXIS / HISTORY OF DVT Initially received SQ heparin. Started on IV heparin for possible thromboembolic disease. At long-term risk for recurrent DVT. Transition from IV heparin to SQ enoxaparin. DOAC's not appropriate because of weight; warfarin preferred oral anticoagulant. Patient prefers not to take warfarin. DISPOSITION Discharge disposition to be determined. Patient feels that she would benefit from inpatient rehab. Case Management consulted. . Current Inpatient Medications: Current Inpatient Medications Medications (Trade) Dose Ordered Sig/Sheryl Route Start Time Stop Time Status Last Admin Dose Admin Acetaminophen (Tylenol Tab) 650 mg Q4H PRN PO 10/29/17 23:15 11/28/17 23:14 Al Hydrox/Mg Hydrox/Simethicone (Maalox Max Susp) 15 ml Q4H PRN PO 10/29/17 23:15 11/28/17 23:14 Ondansetron HCl (Zofran Inj) 4 mg Q6H PRN IV 10/29/17 23:15 11/28/17 23:14 Nitroglycerin (Nitrostat Tab) 0.4 mg UD PRN SL 10/29/17 23:15 11/28/17 23:14 Polyethylene (Miralax Powder Packet) 17 gm DAILY PRN PO 10/29/17 23:15 11/28/17 23:14 Gabapentin (Neurontin Tab) 800 mg BID PRN PO 10/29/17 23:15 11/28/17 23:14 Future Hold Oxycodone/ Acetaminophen (Percocet 7.5-325MG Tab) 1 tab Q8 PRN PO 10/29/17 23:15 11/12/17 23:14 11/03/17 10:54 1 TAB Miscellaneous Information (Order Awaiting Action) 1 ea QS N/A 10/30/17 08:00 11/29/17 07:59 Prednisone (PredniSONE TAB) 40 mg DAILY PO 10/30/17 09:00 11/29/17 08:59 11/03/17 07:45 40 MG Insulin Aspart (novoLOG ASPART) SLIDING SCALE G... ACHS SC 10/30/17 07:00 11/29/17 06:59 11/03/17 21:20 8 UNITS Hydralazine HCl (Apresoline Tab) 10 mg Q6 PRN PO 10/29/17 23:15 11/28/17 23:14 11/03/17 07:46 10 MG Glucose (Glucose 40% Gel) 15-30 GRAMS 15 GRAMS... UD PRN PO 10/29/17 23:45 11/28/17 23:44 Glucose (Glucose Chew Tab) 4-8 Tablets 4 Tabl... UD PRN PO 10/29/17 23:45 11/28/17 23:44 Dextrose (Dextrose 50% 50ML Syringe) 25-50ML 25ML FOR ... UD PRN IV 10/29/17 23:45 11/28/17 23:44 Glucagon (Glucagon Inj) 1 mg UD PRN IM 10/29/17 23:45 11/28/17 23:44 Carbohydrates (Carbohydrates For Hypoglycemia) 15-30 GRAMS 15 grams if BSG 54-69... UD PRN PO 10/29/17 23:45 11/28/17 23:44 Levofloxacin (Consult) 1 ea UD PRN N/A 10/30/17 01:15 11/29/17 01:14 Nystatin (Mycostatin Oint) 1 appln BID EXT 10/30/17 09:00 11/29/17 08:59 11/03/17 20:47 1 APPLN Miscellaneous Information (Consult Glycemic Management Pharmacy) 1 ea UD PRN N/A 10/31/17 08:58 11/30/17 08:57 Ipratropium [place] (Atrovent 0.02% 0.5MG/2.5ML Neb) 0.5 mg Q6R INH 11/02/17 03:00 12/02/17 02:59 11/03/17 18:55 0.5 MG Levalbuterol (Xopenex 1.25MG/ 0.5ML Neb) 1.25 mg Q6R INH 11/02/17 03:00 12/02/17 02:59 11/03/17 18:55 1.25 MG Ipratropium [place] (Atrovent 0.02% 0.5MG/2.5ML Neb) 0.5 mg Q4H PRN INH 11/02/17 01:45 12/02/17 01:44 Levalbuterol (Xopenex 1.25MG/ 0.5ML Neb) 1.25 mg Q4H PRN INH 11/02/17 01:45 12/02/17 01:44 Enoxaparin Sodium (Lovenox Inj) 150 mg DAILY@0900 SQ 11/02/17 09:00 12/02/17 08:59 11/03/17 07:46 150 MG Insulin Human NPH (novoLIN-N NPH) 70 units QDB SC 11/02/17 07:30 12/02/17 07:29 11/03/17 07:56 70 UNITS Salmeterol Xinafoate/ Fluticasone (Advair Hfa 230/ 21 Inh) 2 puff BID INH 11/03/17 09:00 12/03/17 08:59 11/03/17 20:47 2 PUFF Furosemide (Lasix Tab) 80 mg BID17 PO 11/03/17 17:00 12/03/17 16:59 11/03/17 17:23 80 MG
[2017-11-03] MEDS ORDERED: LORATADINE 10 MG TAB PO ONE (22:30)
[2017-11-04] VITALS (8 sets, daily range): BP systolic 117–144; BP diastolic 78–92; PULSE 86–95; TEMP 36.6–36.8; O2SAT 90–96
[2017-11-04] MEDS: IPRATROPIUM BROMIDE NEB SOLN 0.02% 2.5 ML VIAL INH SCH ×3 (01:55→14:07)
[2017-11-04] MEDS: LEVALBUTEROL 1.25MG/0.5ML NEB INH SCH ×3 (01:55→14:07)
[2017-11-04 06:44] LABS: CALCIUM 9.6 mg/dl (8.5-10.1); CREATININE 1.07 mg/dl (0.60-1.20)
[2017-11-04] MEDS: HydrALAZINE 10 MG TAB PO PRN (08:10)
[2017-11-04] MEDS: FUROSEMIDE 80 MG TAB PO SCH (08:10)
[2017-11-04] MEDS: ENOXAPARIN 150 MG/1ML SYR SQ SCH (08:10)
[2017-11-04] MEDS: NYSTATIN OINT 15 GM TUBE EXT SCH (08:11)
[2017-11-04] MEDS: FLUTIC INH SCH (08:11)
[2017-11-04] MEDS: SALMET INH SCH (08:11)
[2017-11-04] MEDS: INSULIN ASPART 100 UNITS/ML 3 ML PEN SC SCH ×2 (08:16→12:01)
[2017-11-04] MEDS: INSULIN HUMAN NPH SC SCH (08:17)
[2017-11-04] MEDS: OXYCODONE/ACETAMINOPHEN 7.5-325 TAB PO PRN (08:17)
[2017-11-04] MEDS ORDERED: FUROSEMIDE 80 MG TAB PO SCH (09:00)
--- NOTE | 2017-11-04 09:11 | Pharmacy Progress Note ---
Pharmacy Glycemic Short Note 2 Date of Service Nov 04, 2017. OUTPATIENT ANTIDIABETIC REGIMEN: * Metformin 850 mg po TID * Glimepiride 4 mg po BID * Sitagliptin 100 mg po daily * A1c = 9.9 % on 10/30/17 Item Value Date Time Bedside Glucose 258 mg/dl H 11/02/17 0002 Bedside Glucose 152 mg/dl H 11/02/17 0429 Bedside Glucose 110 mg/dl H 11/02/17 0724 Bedside Glucose 179 mg/dl H 11/02/17 1101 Bedside Glucose 375 mg/dl *H 11/02/17 1615 Bedside Glucose 279 mg/dl H 11/02/17 2026 Bedside Glucose 115 mg/dl H 11/03/17 0715 Bedside Glucose 221 mg/dl H 11/03/17 1123 Bedside Glucose 317 mg/dl H 11/03/17 1655 Bedside Glucose 225 mg/dl H 11/03/17 2102 Bedside Glucose 143 mg/dl H 11/04/17 0717 ASSESSMENT: * Pt is currently receiving weight based/prednisone dose based NPH insulin + Novolog for steroid induced hyperglycemia + baseline DM * NPH insulin is used to counteract the hyperglycemic effect of prednisone. The rationale for this approach is that the pharmacodynamics profile of NPH, with a peak effect of 4-8hrs and duration of action of 12-16hrs, mirrors the pharmacodynamics of prednisone. NPH should be dosed at the same time that prednisone is given * The dose of NPH given is dependent on the steroid dose given * For doses of prednisone 40mg/day or above NPH dose should be 0.4 units/kg * NPH dosing above is given in addition to patients basal insulin needs * Typically, patients will also need rapid-acting insulin with meals * BSGs trend upwards throughout the day significantly secondary to prednisone. * Pt is ordered NPH 70 units (0.47 units/kg) to cover Prednisone 40mg PO daily. She is also ordered a conservative NovoLog scale since NPH dosing is slightly above recommended dosing. * Will tighten CR to combat post-prandial hyperglycemia and continue to titrate based on BSG trends. May need to increase NPH tomorrow if this tightened CR doesnt work today. * AM fasting BSG in goal range. No changes needed to NPH dosing. PLAN FOR INPATIENT GLYCEMIC CONTROL: * Continue to hold outpatient oral diabetes medications * Will resume Januvia (sitagliptin) since pt tolerating PO intake, renal function is stable, and this is unlikely to cause hypoglycemia. Additionally, sitagliptin has main effects on post-prandial BSGs which is our problem right now. * Basal/prandial insulin - no change at this time * NPH 70 units (0.47 units/kg) qAM w/ prednisone dose * Will decrease dosing with each step down in steroid dosing * Bolus insulin - tighten * NovoLog per scale ACHS or Q6hrs while NPO * Goal Range: Low 100 mg/dL - High 150 mg/dL * Correction Factor: 15 mg/dL/unit * Carb ratio: 1 unit per 5 gm CHO PLAN FOR DISCHARGE: * A1c elevated at 9.9%. Patient agreeable to adding once daily insulin to regimen. * Would recommend: * Lantus (or Basaglar) vs NPH depending on insulin coverage. Recommend starting at 30 units qHS * Increase by 2 units every 3 days if AM BSG above 150 mg/dL * D/C glimepiride * Continue metformin and sitagliptin
[2017-11-04] MEDS ORDERED: SITAGLIPTIN 100 MG TAB PO ONE (09:15)
--- NOTE | 2017-11-04 12:45 | Progress Note ---
Medicine Progress Note Date & Time of Visit: Nov 04, 2017 at 12:44 . Subjective Doing much better. Has diuresed about 20 kg. Dyspnea improved. Ambulating. Has decided that she does not want rehab and will be returning [facility] in a few days. Needs O2 to use until she gets back to [facility]. . Objective Last 8 Hrs Date Time Temp Pulse Resp B/P (MAP) Pulse Ox O2 Delivery O2 Flow Rate FiO2 11/04/17 11:44 36.6 95 20 144/92 (109) 92 Nasal Cannula 11/04/17 08:00 Nasal Cannula 2.0 BiPAP 11/04/17 07:30 87 18 92 Nasal Cannula 2.0 11/04/17 07:20 36.6 89 18 128/83 (98) 91 Room Air Physical Exam: General- sitting in chair; no acute distress Lungs- diffuse mild wheezing Cardiovascular- distant heart sounds; RRR; no murmur or gallop appreciated; neck veins difficulty to assess; 1-2+ pretibial edema Abdomen- obese, + bowel sounds, soft, nontender Extremities- no calf tenderness Neuro- alert, oriented Skin- warm & dry . Laboratory Results: Last 24 Hours Test 11/03/17 13:51 11/03/17 16:55 11/03/17 21:02 11/04/17 05:30 Arterial Blood pH 7.48 Arterial Blood Partial Pressure CO2 58 mmHg Arterial Blood Partial Pressure O2 63 mm/Hg Arterial Blood HCO3 43 mmol/L Arterial Blood Oxygen Saturation 93.0 % Arterial Blood Base Excess 15.7 mEq/L Arterial Blood Gas Delivery 3L Henri Test POS Bedside Glucose 317 mg/dl 225 mg/dl Sodium Level 130 mmol/L Potassium Level 4.0 mmol/L Chloride Level 82 mmol/L Carbon Dioxide Level 45 mmol/L Anion Gap 3.0 mmol/L Blood Urea Nitrogen 39 mg/dl Creatinine 1.07 mg/dl Est Creatinine Clear Calc Drug Dose 89.2 ml/min Estimated GFR () 67.2 Estimated GFR (Non- 58.0 BUN/Creatinine Ratio 36.4 Random Glucose 139 mg/dl Calcium Level 9.6 mg/dl Magnesium Level 1.6 mg/dl Chemistry Specimen Hemolysis Test 11/04/17 07:17 11/04/17 08:58 11/04/17 11:43 Bedside Glucose 143 mg/dl 164 mg/dl Arterial Blood pH 7.48 Arterial Blood Partial Pressure CO2 62 mmHg Arterial Blood Partial Pressure O2 56 mm/Hg Arterial Blood HCO3 45 mmol/L Arterial Blood Oxygen Saturation 89.2 % Arterial Blood Base Excess 17.7 mEq/L Arterial Blood Gas Delivery 3 liters Henri Test POS Assessment & Plan ACUTE ON CHRONIC RESPIRATORY FAILURE Acute hypoxic and hypercapnic respiratory failure. Suspect some degree of chronicity. Hypoxia could have been secondary to CHF and COPD. Considered pulmonary embolism. Did not pursue CT of chest due to renal insufficiency. Venous duplex lower extremities negative for DVT. Hypercapnia probably secondary to combination of COPD, obesity hypoventilation syndrome. Specific problems addressed below. BiPAP utilized for ventilatory support. Respiratory status improved. SLEEP APNEA Previously diagnosed. Continue BiPAP when sleeping. Encouraged to use CPAP at home. ACUTE COPD EXACERBATION Treated with IV steroids, levofloxacin, bronchodilators. ABG improved. Completed course of levofloxacin and steroids. PULMONARY HYPERTENSION Estimated PA pressure in 70's per echo. RV dilated with decreased systolic function. Pulmonary hypertension could be secondary to COPD, sleep apnea, obesity hypoventilation syndrome, or possible chronic thromboembolic disease. Patient does not wish to consider right-sided cath at this time. Optimize pulmonary issues as noted above. Empiric coagulation recommended for possible chronic thromboembolic disease. Warfarin safest option for anticoagulation, but patient declines. DOAC's not appropriate primarily due to BMI. Cardiology and Pulmonary follow-up in [facility] recommended, CHF Presented with weight gain and shortness of breath. Chest x-ray demonstrated cardiomegaly and pulmonary vascular congestion. BNP was elevated. Echo demonstrated grossly normal LV systolic function; dilated RV with decreased systolic function. Suspect acute on chronic left ventricular diastolic heart failure. Suspect acute on chronic right ventricular heart failure secondary to underlying pulmonary diseases. Old records from [place] requested for baseline data. Received IV furosemide. Transitioned to oral furosemide 80 mg daily + afternoon dose PRN. Cardiology follow-up in [place] recommended, ABNORMAL EKG EKG demonstrated nonspecific changes suggesting ischemia. Cardiology consulted. Serum troponins negative x 3. No apparent left ventricular segmental wall motion abnormalities on echo. Cardiology follow-up in [place] recommended, HYPERTENSION Lisinopril stopped due to hyperkalemia. Follow and titrate therapy. RENAL INSUFFICIENCY Serum creatinine at time of admission was 1.84. Baseline creatinine unknown. Nephrology consulted. Uses ibuprofen PRN-discontinued. Creatinine day of discharge = 1.07. Follow. HYPERKALEMIA Serum potassium 5.9 at time of admission and linette as high as 6.0. Hyperkalemia probably multifactorial- CESAR inhibitor, respiratory acidosis, renal insufficiency. CESAR inhibitor discontinued. K this morning = 4.0. Follow. DM TYPE 2 History of diabetes mellitus type 2, usually managed with metformin, glimepiride , sitagliptin. Random glucose in ED 99. Hemoglobin A1c 9.9. Hold oral agents during hospital stay. Pharmacy consulted for glycemic management. Novolin N/NovoLog per protocol. FBS day of discharge = 143. Patient has Lantus at home, but has not been using it. Lantus 20 units SQ HS recommended. Stop glimepiride. Continue metformin and sitagliptin. MORBID OBESITY Wt 162 kg, BMI 55.9. AHA, diabetic diet. GENERAL DEBILITATION PT / OT. INCOMPLETE DATA Records from [place] requested. VTE PROPHYLAXIS / HISTORY OF DVT Initially received SQ heparin. Started on IV heparin for possible thromboembolic disease. At long-term risk for recurrent DVT. Transition from IV heparin to SQ enoxaparin. DOAC's not appropriate because of weight. Warfarin would be safest oral anticoagulant, but patient prefers not to take it. DISPOSITION Discharged to home. Follow-up with PCP - Dr. Cardona in [place] as soon as possible. . Current Inpatient Medications: Current Inpatient Medications Medications (Trade) Dose Ordered Sig/Sheryl Route Start Time Stop Time Status Last Admin Dose Admin Acetaminophen (Tylenol Tab) 650 mg Q4H PRN PO 10/29/17 23:15 11/28/17 23:14 Al Hydrox/Mg Hydrox/Simethicone (Maalox Max Susp) 15 ml Q4H PRN PO 10/29/17 23:15 11/28/17 23:14 Ondansetron HCl (Zofran Inj) 4 mg Q6H PRN IV 10/29/17 23:15 11/28/17 23:14 Nitroglycerin (Nitrostat Tab) 0.4 mg UD PRN SL 10/29/17 23:15 11/28/17 23:14 Polyethylene (Miralax Powder Packet) 17 gm DAILY PRN PO 10/29/17 23:15 11/28/17 23:14 Gabapentin (Neurontin Tab) 800 mg BID PRN PO 10/29/17 23:15 11/28/17 23:14 Future Hold Oxycodone/ Acetaminophen (Percocet 7.5-325MG Tab) 1 tab Q8 PRN PO 10/29/17 23:15 11/12/17 23:14 11/04/17 08:17 1 TAB Miscellaneous Information (Order Awaiting Action) 1 ea QS N/A 10/30/17 08:00 11/29/17 07:59 Prednisone (PredniSONE TAB) 40 mg DAILY PO 10/30/17 09:00 11/29/17 08:59 11/04/17 08:10 40 MG Insulin Aspart (novoLOG ASPART) SLIDING SCALE G... ACHS SC 10/30/17 07:00 11/29/17 06:59 11/04/17 12:01 12 UNITS Hydralazine HCl (Apresoline Tab) 10 mg Q6 PRN PO 10/29/17 23:15 11/28/17 23:14 11/04/17 08:10 10 MG Glucose (Glucose 40% Gel) 15-30 GRAMS 15 GRAMS... UD PRN PO 10/29/17 23:45 11/28/17 23:44 Glucose (Glucose Chew Tab) 4-8 Tablets 4 Tabl... UD PRN PO 10/29/17 23:45 11/28/17 23:44 Dextrose (Dextrose 50% 50ML Syringe) 25-50ML 25ML FOR ... UD PRN IV 10/29/17 23:45 11/28/17 23:44 Glucagon (Glucagon Inj) 1 mg UD PRN IM 10/29/17 23:45 11/28/17 23:44 Carbohydrates (Carbohydrates For Hypoglycemia) 15-30 GRAMS 15 grams if BSG 54-69... UD PRN PO 10/29/17 23:45 11/28/17 23:44 Nystatin (Mycostatin Oint) 1 appln BID EXT 10/30/17 09:00 11/29/17 08:59 11/04/17 08:11 1 APPLN Miscellaneous Information (Consult Glycemic Management Pharmacy) 1 ea UD PRN N/A 10/31/17 08:58 11/30/17 08:57 Ipratropium [place] (Atrovent 0.02% 0.5MG/2.5ML Neb) 0.5 mg Q6R INH 11/02/17 03:00 12/02/17 02:59 11/04/17 07:29 0.5 MG Levalbuterol (Xopenex 1.25MG/ 0.5ML Neb) 1.25 mg Q6R INH 11/02/17 03:00 12/02/17 02:59 11/04/17 07:29 1.25 MG Ipratropium [place] (Atrovent 0.02% 0.5MG/2.5ML Neb) 0.5 mg Q4H PRN INH 11/02/17 01:45 12/02/17 01:44 Levalbuterol (Xopenex 1.25MG/ 0.5ML Neb) 1.25 mg Q4H PRN INH 11/02/17 01:45 12/02/17 01:44 Enoxaparin Sodium (Lovenox Inj) 150 mg DAILY@0900 SQ 11/02/17 09:00 12/02/17 08:59 11/04/17 08:10 150 MG Insulin Human NPH (novoLIN-N NPH) 70 units QDB SC 11/02/17 07:30 12/02/17 07:29 11/04/17 08:17 70 UNITS Salmeterol Xinafoate/ Fluticasone (Advair Hfa 230/ 21 Inh) 2 puff BID INH 11/03/17 09:00 12/03/17 08:59 11/04/17 08:11 2 PUFF Furosemide (Lasix Tab) 80 mg BID17 PO 11/03/17 17:00 12/03/17 16:59 11/04/17 08:10 80 MG Sitagliptin Phosphate (Januvia Tab) 100 mg DAILY PO 11/05/17 09:00 12/05/17 08:59
[2017-11-04] MEDS ORDERED: MAGN1TAB19 PO (12:50)
[2017-11-04] MEDS ORDERED: INSDGIPEN SQ (12:50)
[2017-11-04] MEDS ORDERED: LSX20 PO (12:53)
--- NOTE | 2017-11-04 13:04 | PROGRESS NOTE ---
DATE: 11/04/2017 SUBJECTIVE: Overnight she is doing good. She is urinating a lot. Her weight has gone down by about 20 kg since admission. She feels remarkably better from breathing standpoint and she is getting ready to be discharged. PHYSICAL EXAMINATION: VITAL SIGNS: Blood pressure 144/92, 92% on 2 L nasal cannula. She does need BIPAP at night for sleep apnea, respiratory rate 20 per minute, temperature 36.6, pulse rate 95 per minute. NECK: Short and obese. Cannot assess JVD. CHEST: Decreased breath sounds. Unable to hear any breath sounds secondary to morbid obesity. CARDIOVASCULAR: S1, S2 regular. ABDOMEN: Soft, nontender, very obese. EXTREMITIES: Shows bilateral lower extremity edema, but it is definitely much better than few days ago. LABORATORY TEST: Platelet count 240. WBC count 9.17, hemoglobin 14.5. Sodium 130, potassium 4.0, BUN 39, creatinine 1.07, carbon dioxide 45, chloride 82. Blood gas done yesterday showed slight alkalosis with a pH of 7.48, pCO2 is high at 62, pO2 is 56, bicarbonate is 45. ASSESSMENT AND PLAN: A 57-year-old female who presented with symptomatic congestive heart failure including right-sided heart failure, diastolic heart failure, chronic kidney disease stage III. 1. Acute kidney injury. Renal function has essentially improved all the way almost to normal. 2. Fluid, electrolyte disorder as well as acid base disorder. This is going to be a challenge. It appears she has chronic respiratory failure with hypercapnia. Her pCO2 is very high signifying she has chronic problem from obstructive sleep apnea and pulmonary hypertension. At this time, she does not have a CPAP machine at home. She claims that she left it in [place] and at this time does not have one. I would recommend that we would send her with a BIPAP machine. As for the diuretics, I would think she would need at least Lasix 80 mg twice daily. Most likely even this will not be enough. She drinks a massive amount of liquid at home. I did tell her that she needs to be on a low salt diet of 2 g per day and fluid restriction of no more than [address] [facility]
--- NOTE | 2017-11-04 13:06 | Discharge Instructions ---
Discharge Instructions Date of Service Nov 04, 2017. Admission Reason for Admission: trouble breathing . Discharge Discharge Diagnosis / Problem: congestive heart failure, COPD, sleep apnea Discharge Goals Goal(s): Decrease discomfort, Improve function, Increase independence, Improve disease control Activity Recommendations Activity Limitations: as noted below Lifting Limitations: gradually increase as tolerated . Instructions / Follow-Up Instructions / Follow-Up APPOINTMENTS: PRIMARY CARE Please make an appointment to see Dr. Cardona next week. He should check lab tests to make sure that your potassium and kidney tests are OK. OTHER INSTRUCTIONS: Please do not smoke. New furosemide (Lasix) dose is 80 mg daily. May take extra dose in the afternoon if you are retaining fluid or gaining weight. Stop taking lisinopril- it can cause high potassium. Take Lantus 20 units at bedtime. Continue metformin (Glucophage) and sitagliptin (Januvia). Stop glimepiride. Check your blood sugars and keep diary for Dr. Cardona. He can then help you adjust your Lantus dose. Stop taking ibuprofen- it can be bad for kidneys and blood pressure. Your magnesium level was low. Take magnesium oxide 400 mg twice a day. Prescription not necessary. Wear your oxygen essentially all of the time at 2 liters / minute. Wear CPAP at night. Ask Dr. Cardona to make referral for you to see a Jewelry Mold Maker for your heart problems and a Network Lead for your breathing problems. Reconsider taking warfarin (Coumadin) to prevent blood clots which could affect your breathing. Please discuss with Dr. Cardona. Seek medical attention if you have: * temperature above 101 * chest pain or trouble breathing * abdominal pain, nausea, vomiting * diarrhea, dark stools or bloody stools * any unanswered questions or concerns Call 911 if symptoms are severe. Call if you have any questions or problems. My cell # is [phone]. You can also reach a [facility] hospitalist on duty at [facility] 24 hours a day by calling [phone]. Please take good care of yourself. Jerald Peralta Call your Primary Care doctor if any of the following symptoms or problems start or get worse: * Shortness of breath or difficulty breathing * Wake up at night short of breath * Chest pain * Cough * Swelling of your hands, feet, or legs * More fatigued or tired with your normal activity * Palpitations - sudden fast heart beats WEIGHT * Weigh yourself every morning after using the bathroom. * Use the same scale. * Wear the same amount of clothing. * Write your weight down on a chart. * Call your Primary Care doctor if you gain more than 2-3 pounds in 1-2 days. MEDICATIONS * Use this discharge instruction sheet for medication instructions. * Take your medications at the time your doctor ordered. * Do not skip a dose of your medicines. * If you miss a dose of medicine, take it as soon as possible, but DO NOT DOUBLE A DOSE. * Read your medicine information when you get home. * Know all of the side effects of your medicine. If in doubt, ask your pharmacist * Call your Primary Care doctor's office if you have any side effects. * Be sure all of your doctors know what medicine and herbs you take (including cold, flu, and herbal medicine). Take the following with you to your follow-up doctor appointments: * Weight Chart * Medication List * List of questions Do not drink excessive alcohol, beer or wine. . Current Hospital Diet Patient's current hospital diet: Diabetes Type 2 Diet, AHA Diet (Heart Healthy) Discharge Diet Recommended Diet: AHA Diet (Heart Healthy), Diabetes Type 2 Diet Procedures Procedures Performed: ultrasound legs no blood clots echocardiogram CHF- enlarged right ventricle with weak muscle pulmonary hypertension- high pressure in blood vessels going to the lungs Pending Studies Studies pending at discharge: no Laboratory Results Hemoglobin A1c Test 10/30/17 06:15 Range/Units Estimated Average Glucose 237 mg/dl Hemoglobin A1c 9.9 H 4.5-5.6 % Lipid Panel Test 10/30/17 06:15 Range/Units Triglycerides Level 67 0-150 mg/dl Cholesterol Level 133 0-200 mg/dl HDL Cholesterol 36 mg/dl Cholesterol/HDL Ratio 3.7 LDL Cholesterol, Calculated 84 mg/dl Medical Emergencies . Who to Call and When: Call 911 or go to the Emergency Room if: * If at any time you feel your situation is an emergency * You have tightness or pain in your chest that does not go away with rest or Nitroglycerin * You are very short of breath even with rest . Non-Emergent Contact Non-Emergency issues call your: Primary Care Provider, Jewelry Mold Maker, Hospital Doctor, Network Lead . . "Provider Documentation" section prepared by Jerald Peralta. .
[2017-11-05] MEDS ORDERED: SITAGLIPTIN 100 MG TAB PO SCH (09:00)
--- NOTE | 2017-11-06 07:18 | Discharge Summary ---
Discharge Summary Date of Service Nov 06, 2017. Discharge Summary Admission Date: Oct 29, 2017 at 23:14 Discharge Date: Nov 04, 2017 Discharge Disposition: Home Principal Diagnosis: ACUTE HYPOXIC AND HYPERCAPNIC RESPIRATORY FAILURE OTHER ACUTE DIAGNOSES: EXACERBATION COPD CHF- left sided diastolic + right sided, acute on chronic ACUTE KIDNEY INJURY HYPERKALEMIA . Secondary Diagnoses/Problems: Chronic and Resolved Medical Problems: (1) Asthma Status: Chronic (2) CHF (congestive heart failure) Status: Chronic (3) Diabetes mellitus, type 2 Status: Chronic (4) Hypertension Status: Chronic (5) Morbid obesity with BMI of 50.0-59.9, adult Status: Chronic (6) Obesity hypoventilation syndrome Status: Chronic (7) Sleep apnea Status: Chronic . Procedures: cardiac monitoring IV meds BiPAP venous duplex lower extremities . Consultations: Cardiology Critical Care Medicine Nephrology . Medication Reconciliation New Medications: Furosemide (Furosemide) 20 Mg Tab 80 MG PO DAILY, #100 TAB Take 80 mg (4 pills) every morning. May take extra dose in the afternoon if retaining fluid or gaining weight. Insulin Glargine (Lantus Solostar) 100 Unit/Ml Inj 0 SQ HS, #1 VIAL Dose will vary. Start with 20 units at bedtime. Adjust dose with help of your doctor. Magnesium Oxide (Mg Supplement (Magnesium Oxide) 400 Mg Tab 400 MG PO BID, #60 TAB 5 Refills no prescription necessary Continued Medications: Fluticasone-Salmeterol 230/21 Mcg (Advair Hfa 230/21 Mcg) 1 Aer Aer 2 PUFFS INH BID, AER Gabapentin (Neurontin) 800 Mg Tab 800 MG PO BID PRN for Pain, TAB Home O2 Therapy (Oxygen) Gas 2-3 LITERS NA UD, BTL Metformin Hcl (Glucophage) 850 Mg Tab 850 MG PO TID, TAB Oxycodone/Acetaminophen 7.5MG/325MG (Oxycodone/Acetaminophen 7.5MG/325MG) 1 Tab Tab 1 TAB PO Q8 PRN for Pain, TAB Sitagliptin Phosphate (Januvia) 100 Mg Tab 100 MG PO DAILY, TAB Umeclidinium Monroe (Incruse Ellipta) 62.5 Mcg/Inh Inh 1 INHA INH DAILY Discontinued Medications: Furosemide (Lasix) 20 Mg Tab 40 MG PO BID PRN for Fluid Retention, TAB Glimepiride (Amaryl) 4 Mg Tab 4 MG PO BID, TAB Ibuprofen Tab (Motrin) 800 Mg Tab 1600 MG PO BID PRN for Pain, TAB Lisinopril (Zestril) 40 Mg Tab 40 MG PO DAILY, TAB Admission Information HPI (per Admitting provider): This is a 57-year-old female with past medical history significant for morbid obesity, obstructive sleep apnea, but noncompliant with CPAP, diabetes, hypertension, COPD, tobacco abuse. Presents with shortness of breath. Patient is from [place]. Her house is getting repaired and that is why she came to live with her niece in [place] since about a month. Before coming to [place], she was in ER in [place] and she was told she has CHF and discharged on Lasix tablet prn and she was not seen by any utilities manager. She states since that time she is progressively getting weight gain and increasing lower extremity edema, but last 1 week it got progressive worse and she was getting short of breath even on ambulating few steps, she was getting nauseous, somewhat dizzy, feeling weak and tired. She has some cough with occasional white phlegm . All these symptoms prompted her to come to the ER. In the ER, she was saturating 83% on room air and with oxygen 6 L she was saturating at 93% to 94%. She is worried about her weight gain. She is feeling very weak and tired. She says her abdominal girth is much increased. She says she gained about 70 pounds from last August. Denies any headaches, no blurred visions, no earache, no runny nose, no sore throat. She also complained of some difficulty swallowing. 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 No abdominal pain. Normal bowel movements. No blood in the stools. She says some days she micturates a lot and some days not at all, but no blood in the urine . Physical Exam (per Admitting): GENERAL: The patient is morbidly obese and mild respiratory distress. HEENT: No pallor, no icterus. Pupils equal, round, and reactive to light. NECK: No JVD, no neck masses, no carotid bruits. CARDIOVASCULAR: S1, S2 heard, regular rate and rhythm, no murmur, no gallop. RESPIRATORY SYSTEM: Clear to auscultation bilaterally, was tachypneic initially but is doing okay now. Mild bibasilar crackles. No wheezing. ABDOMEN: Soft, bowel sounds present, somewhat edematous, erythema seen in the pannus. CENTRAL NERVOUS SYSTEM: Cranial nerves II through XII grossly intact, nonfocal. EXTREMITIES: Bilateral lower extremity gross edema present. Some erythematous changes in the lower extremities. , Hospital Course ACUTE ON CHRONIC RESPIRATORY FAILURE Acute hypoxic and hypercapnic respiratory failure. Suspect some degree of chronicity. Hypoxia could have been secondary to CHF and COPD. Considered pulmonary embolism. Did not pursue CT of chest due to renal insufficiency. Venous duplex lower extremities negative for DVT. Hypercapnia probably secondary to combination of COPD, obesity hypoventilation syndrome. Specific problems addressed below. BiPAP utilized for ventilatory support. Respiratory status improved. SLEEP APNEA Previously diagnosed. Continue BiPAP when sleeping. Encouraged to use CPAP at home. ACUTE COPD EXACERBATION Treated with IV steroids, levofloxacin, bronchodilators. ABG improved. Completed course of levofloxacin and steroids. PULMONARY HYPERTENSION Estimated PA pressure in 70's per echo. RV dilated with decreased systolic function. Pulmonary hypertension could be secondary to COPD, sleep apnea, obesity hypoventilation syndrome, or possible chronic thromboembolic disease. Patient does not wish to consider right-sided cath at this time. Optimize pulmonary issues as noted above. Empiric coagulation recommended for possible chronic thromboembolic disease. Warfarin safest option for anticoagulation, but patient declines. DOAC's not appropriate primarily due to BMI. Cardiology and Pulmonary follow-up in [place] recommended, CHF Presented with weight gain and shortness of breath. Chest x-ray demonstrated cardiomegaly and pulmonary vascular congestion. BNP was elevated. Echo demonstrated grossly normal LV systolic function; dilated RV with decreased systolic function. Suspect acute on chronic left ventricular diastolic heart failure. Suspect acute on chronic right ventricular heart failure secondary to underlying pulmonary diseases. Old records from [place] requested for baseline data. Received IV furosemide. Transitioned to oral furosemide 80 mg daily + afternoon dose PRN. Cardiology follow-up in [place] recommended, ABNORMAL EKG EKG demonstrated nonspecific changes suggesting ischemia. Cardiology consulted. Serum troponins negative x 3. No apparent left ventricular segmental wall motion abnormalities on echo. Cardiology follow-up in [place] recommended, HYPERTENSION Lisinopril stopped due to hyperkalemia. Follow and titrate therapy. RENAL INSUFFICIENCY Serum creatinine at time of admission was 1.84. Baseline creatinine unknown. Nephrology consulted. Uses ibuprofen PRN-discontinued. Creatinine day of discharge = 1.07. Follow. HYPERKALEMIA Serum potassium 5.9 at time of admission and linette as high as 6.0. Hyperkalemia probably multifactorial- CESAR inhibitor, respiratory acidosis, renal insufficiency. CESAR inhibitor discontinued. K this morning = 4.0. Follow. DM TYPE 2 History of diabetes mellitus type 2, usually managed with metformin, glimepiride , sitagliptin. Random glucose in ED 99. Hemoglobin A1c 9.9. Hold oral agents during hospital stay. Pharmacy consulted for glycemic management. Novolin N/NovoLog per protocol. FBS day of discharge = 143. Patient has Lantus at home, but has not been using it. Lantus 20 units SQ HS recommended. Stop glimepiride. Continue metformin and sitagliptin. MORBID OBESITY Wt 162 kg, BMI 55.9. AHA, diabetic diet. GENERAL DEBILITATION PT / OT. INCOMPLETE DATA Records from [place] requested. VTE PROPHYLAXIS / HISTORY OF DVT Initially received SQ heparin. Started on IV heparin for possible thromboembolic disease. At long-term risk for recurrent DVT. Transition from IV heparin to SQ enoxaparin. DOAC's not appropriate because of weight. Warfarin would be safest oral anticoagulant, but patient prefers not to take it. DISPOSITION Discharged to home. Follow-up with PCP - Dr. Cardona in [place] as soon as possible. . Total time spent on discharge = 45 min. This includes examination of the patient, discharge planning, medication reconciliation, and communication with other providers. . Discharge Instructions Discharge Instructions Date of Service Nov 04, 2017. Admission Reason for Admission: trouble breathing . Discharge Discharge Diagnosis / Problem: congestive heart failure, COPD, sleep apnea Discharge Goals Goal(s): Decrease discomfort, Improve function, Increase independence, Improve disease control Activity Recommendations Activity Limitations: as noted below Lifting Limitations: gradually increase as tolerated . Instructions / Follow-Up Instructions / Follow-Up APPOINTMENTS: PRIMARY CARE Please make an appointment to see Dr. Cardona next week. He should check lab tests to make sure that your potassium and kidney tests are OK. OTHER INSTRUCTIONS: Please do not smoke. New furosemide (Lasix) dose is 80 mg daily. May take extra dose in the afternoon if you are retaining fluid or gaining weight. Stop taking lisinopril- it can cause high potassium. Take Lantus 20 units at bedtime. Continue metformin (Glucophage) and sitagliptin (Januvia). Stop glimepiride. Check your blood sugars and keep diary for Dr. Cardona. He can then help you adjust your Lantus dose. Stop taking ibuprofen- it can be bad for kidneys and blood pressure. Your magnesium level was low. Take magnesium oxide 400 mg twice a day. Prescription not necessary. Wear your oxygen essentially all of the time at 2 liters / minute. Wear CPAP at night. Ask Dr. Cardona to make referral for you to see a Mail Order Clerk for your heart problems and a Hair Blender for your breathing problems. Reconsider taking warfarin (Coumadin) to prevent blood clots which could affect your breathing. Please discuss with Dr. Cardona. Seek medical attention if you have: * temperature above 101 * chest pain or trouble breathing * abdominal pain, nausea, vomiting * diarrhea, dark stools or bloody stools * any unanswered questions or concerns Call [phone] if symptoms are severe. Call if you have any questions or problems. My cell # is [phone]. You can also reach a [facility] hospitalist on duty at [facility] 24 hours a day by calling [phone]. Please take good care of yourself. Jerald Peralta Call your Primary Care doctor if any of the following symptoms or problems start or get worse: * Shortness of breath or difficulty breathing * Wake up at night short of breath * Chest pain * Cough * Swelling of your hands, feet, or legs * More fatigued or tired with your normal activity * Palpitations - sudden fast heart beats WEIGHT * Weigh yourself every morning after using the bathroom. * Use the same scale. * Wear the same amount of clothing. * Write your weight down on a chart. * Call your Primary Care doctor if you gain more than 2-3 pounds in 1-2 days. MEDICATIONS * Use this discharge instruction sheet for medication instructions. * Take your medications at the time your doctor ordered. * Do not skip a dose of your medicines. * If you miss a dose of medicine, take it as soon as possible, but DO NOT DOUBLE A DOSE. * Read your medicine information when you get home. * Know all of the side effects of your medicine. If in doubt, ask your pharmacist * Call your Primary Care doctor's office if you have any side effects. * Be sure all of your doctors know what medicine and herbs you take (including cold, flu, and herbal medicine). Take the following with you to your follow-up doctor appointments: * Weight Chart * Medication List * List of questions Do not drink excessive alcohol, beer or wine. . Current Hospital Diet Patient's current hospital diet: Diabetes Type 2 Diet, AHA Diet (Heart Healthy) Discharge Diet Recommended Diet: AHA Diet (Heart Healthy), Diabetes Type 2 Diet Procedures Procedures Performed: ultrasound legs no blood clots echocardiogram CHF- enlarged right ventricle with weak muscle pulmonary hypertension- high pressure in blood vessels going to the lungs Pending Studies Studies pending at discharge: no Laboratory Results Hemoglobin A1c Test 10/30/17 06:15 Range/Units Estimated Average Glucose 237 mg/dl Hemoglobin A1c 9.9 H 4.5-5.6 % Lipid Panel Test 10/30/17 06:15 Range/Units Triglycerides Level 67 0-150 mg/dl Cholesterol Level 133 0-200 mg/dl HDL Cholesterol 36 mg/dl Cholesterol/HDL Ratio 3.7 LDL Cholesterol, Calculated 84 mg/dl Medical Emergencies . Who to Call and When: Call 911 or go to the Emergency Room if: * If at any time you feel your situation is an emergency * You have tightness or pain in your chest that does not go away with rest or Nitroglycerin * You are very short of breath even with rest . Non-Emergent Contact Non-Emergency issues call your: Primary Care Provider, Mail Order Clerk, Hospital Doctor, Hair Blender . . "Provider Documentation" section prepared by Jerald Peralta. . . Additional Copies To Linden Cardona MD
[2017-11-07] MEDS ORDERED: OXYC7.5T65 PO (11:52)
[2017-11-07] MEDS ORDERED: UMEC1INH INH (11:52)
== END 2017-11-04 17:20 | disposition home or self-care (01) | DRG 314 ==
LOC: C.EDB 19:25 → C.2E 23:14 → ENRESERV 23:36 → C.MSICU 10-30 14:40 → C.2T 10-31 13:50 → ENRESERV 10-31 14:03
PROVIDERS: ADMIT Internal Medicine; ATTEND Hospitalist
DX: I27.24 Chronic thromboembolic pulmonary hypertension (principal); J96.21 Acute and chronic respiratory failure with hypoxia; J96.22 Acute and chronic respiratory failure with hypercapnia; I50.31 Acute diastolic (congestive) heart failure; I26.99 Other pulmonary embolism without acute cor pulmonale; I13.0 Hypertensive heart and chronic kidney disease with heart failure and stage 1 through stage 4 chronic kidney disease, or unspecified chronic kidney disease; J44.1 Chronic obstructive pulmonary disease with (acute) exacerbation; N17.9 Acute kidney failure, unspecified; E87.2 Acidosis; Z68.43 Body mass index [BMI] 50.0-59.9, adult; I27.29 Other secondary pulmonary hypertension; E66.2 Morbid (severe) obesity with alveolar hypoventilation; E87.5 Hyperkalemia; R13.10 Dysphagia, unspecified; R53.81 Other malaise; N18.3 Chronic kidney disease, stage 3 (moderate); E11.22 Type 2 diabetes mellitus with diabetic chronic kidney disease; G89.29 Other chronic pain; F17.200 Nicotine dependence, unspecified, uncomplicated; Z51.81 Encounter for therapeutic drug level monitoring; Z79.899 Other long term (current) drug therapy; Z79.84 Long term (current) use of oral hypoglycemic drugs; Z91.19 Patient's noncompliance with other medical treatment and regimen; Z66 Do not resuscitate; Z86.718 Personal history of other venous thrombosis and embolism; Z83.3 Family history of diabetes mellitus; Z82.49 Family history of ischemic heart disease and other diseases of the circulatory system; Z80.3 Family history of malignant neoplasm of breast; I50.813 Acute on chronic right heart failure